=== PATIENT | male | born 1950 | race Caucasian/White ===

== ENCOUNTER → 2021-08-07 11:07 | Outpatient (CLI) | payer MEDICARE, SELFPAY ==
--- NOTE | ~2021-08-07 | XR_ITS ---
EXAMINATION: XR shoulder RT min 2V DATE: 08/07/2021 11:33 INDICATION: Right shoulder pain. TECHNIQUE: 4 views of right shoulder were obtained. COMPARISON: None. FINDINGS: Bone alignment is normal. No fracture. There is mild osteoarthritis of glenohumeral joint a nd acromioclavicular joint characterized by marginal osteophytes. IMPRESSION: 1. Mild polyarticular osteoarthritis. Reviewed, dictated and finalized at location A.
== END ==
PROVIDERS: PCP Family Medicine; Visit Provider Family Medicine
DX: M19.011 Primary osteoarthritis, right shoulder (principal)
CPT/HCPCS: 73030

== ENCOUNTER → 2021-12-03 12:19 | Outpatient (CLI) | payer MEDICARE, SELFPAY ==
--- NOTE | ~2021-12-03 | US_ITS ---
EXAMINATION: US soft tissue head and neck DATE: 12/03/2021 12:38 INDICATION: Right face mass near the right mandible angle. TECHNIQUE: Multiple grayscale and Doppler ultrasound images of the right face were obtained. COMPARISON: None FINDINGS: In the right neck, there is a 2.8 x 1.5 x 1.3 cm hypoechoic mass within a major salivary gl and that is labeled as the right submandibular gland. IMPRESSION: 1. 2.8 cm mass within a major salivary gland in the right neck labeled as the right submandibular gla nd. The differential diagnosis includes benign mixed tumor, Warthin tumor, primary carcinoma, and nod al metastatic disease. Ultrasound-guided fine-needle aspiration is recommended. Reviewed, dictated and finalized at location A. IMPRESSION: 1. 2.8 cm mass within a major salivary gland in the right neck labeled as the r ight submandibular gland. The differential diagnosis includes benign mixed tumo r, Warthin tumor, primary carcinoma, and diana metastatic disease. Ultrasound-g uided fine-needle aspiration is recommended.
== END ==
PROVIDERS: PCP Family Medicine; Visit Provider Family Medicine
DX: R22.1 Localized swelling, mass and lump, neck (principal)
CPT/HCPCS: 76536

== ENCOUNTER 2021-12-07 11:07 | Outpatient (CLI) | payer MEDICARE, SELFPAY ==
--- NOTE | ~2021-12-07 | US_ITS ---
EXAMINATION: US FNA w image guidance DATE: 12/07/2021 13:14 INDICATION: Right parotid mass. TECHNIQUE: The procedure and its benefits and risks were discussed with the patient. Risks specifically discusse d included bleeding. The patient verbalized understanding of the risks and agreed to proceed. The rig ht face and neck was prepped and draped in the usual sterile manner. 1% lidocaine was used for local anesthesia. 5 passes were made with a 25G needle into the lesion under ultrasound guidance. There were no immediate complications. FINDINGS: Grayscale ultrasound images demonstrate needles advanced into a 2.6 x 1.3 cm hypoechoic mass in super ficial right parotid gland for biopsy. IMPRESSION: 1. Ultrasound-guided fine needle aspiration of a right parotid mass. Reviewed, dictated and finalized at location A.
== END 2021-12-07 11:08 | disposition home or self-care (01) ==
LOC: ANHIMG 11:10
PROVIDERS: PCP Family Medicine; Visit Provider Family Medicine
DX: R22.1 Localized swelling, mass and lump, neck (principal)
CPT/HCPCS: 10005; 88173; 88305

== ENCOUNTER 2023-05-09 10:01 | Outpatient (CLI) | payer MEDICARE, SELFPAY ==
--- NOTE | ~2023-05-09 | XR_ITS ---
XR chest 2V DATE: 05/09/2023 10:15 INDICATION: Granuloma present on chest x-ray decades ago TECHNIQUE: PA and lateral views COMPARISON: None FINDINGS: Lingular calcified pulmonary granuloma. No pulmonary infiltrate or consolidation, pleural effusion or pulmonary vascular congestion or pneumo thorax. No hilar or mediastinal enlargement. Normal heart size. Minimal thoracic levoscoliosis. 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
== END 2023-05-09 10:02 | disposition home or self-care (01) ==
LOC: CHSIMG 10:03
PROVIDERS: PCP Family Medicine; Visit Provider Family Medicine
DX: Z77.090 Contact with and (suspected) exposure to asbestos (principal); R91.8 Other nonspecific abnormal finding of lung field
CPT/HCPCS: 71046

== ENCOUNTER 2023-07-29 10:24 | Outpatient (CLI) | payer MEDICARE, SELFPAY ==
--- NOTE | ~2023-07-29 | XR_ITS ---
AP view of the pelvis and AP and lateral views of the bilateral hips Clinical history: Pain Findings: No acute fracture or dislocation is seen. Osseous alignment is anatomic. There is mild dege nerative change of the left hip joint. Minimal right hip degenerative change present. Soft tissues ar e unremarkable. Impression: Mild left hip joint degenerative change, and minimal right hip degenerative change. Reviewed, dictated and finalized at location M. Impression: Mild left hip joint degenerative change, and minimal right hip degenerative oziel nge.
--- NOTE | ~2023-07-29 | XR_ITS ---
EXAMINATION: XR lumbar spine min 4V DATE: 07/29/2023 10:51 INDICATION: Chronic low back pain. Bilateral hip pain. TECHNIQUE: 5 views of lumbar spine were obtained. COMPARISON: None. FINDINGS: Bone alignment is normal. There is mild chronic height loss of L1 and L3 vertebral bodies. There is mildly decreased disc height at L1-L2, L2-L3, and L4-L5 and severely decreased disc height a t L5-S1. There is multilevel mild to moderate facet joint osteoarthritis. IMPRESSION: 1. Severe lumbar spondylosis. Reviewed, dictated and finalized at location E.
== END 2023-07-29 10:25 | disposition home or self-care (01) ==
LOC: CHSIMG 10:26
PROVIDERS: PCP Family Medicine; Visit Provider Family Medicine
DX: M25.552 Pain in left hip (principal); M25.551 Pain in right hip; M54.50 Low back pain, unspecified; M43.06 Spondylolysis, lumbar region
CPT/HCPCS: 72110; 73521

== ENCOUNTER 2024-06-20 10:19 | Outpatient (CLI) | payer MEDICARE, SELFPAY ==
--- NOTE | 2024-06-20 10:31 | ECG_ITS ---
Test Date: 2024-06-20 10:43:30 Measurements Intervals [place] Rate: 60 P: 66 OK: 250 QRS: -67 QRSD: 113 T: 54 QT: 397 QTc: 399 Interpretive Statements SINUS RHYTHM WITH FIRST DEGREE AV BLOCK INCOMPLETE RIGHT BUNDLE BRANCH BLOCK [90+ ms QRS DURATION, TERMINAL R IN V1/V2, 40+ ms S IN I/aVL/V4/V5/V6] LEFT ANTERIOR FASCICULAR BLOCK [QRS AXIS <= -45, QR IN I, RS IN II] No previous ECG available for comparison Electronically Signed On 06-20-2024 13:15:56 CDT by Tamir Helm M.D.
--- OUTSIDE RECORDS SUMMARY | 2024-06-20 11:52 | XMS_ITS ---
Author Organization 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 Name Role Phone Monsechloeiona Kaylah Primary Care Provider Mery Rojas Unavailable [phone] Allergies Allergen (clinical drug ingredient) Drug/Non Drug Allergy documented on EMR Reaction Allergy Type Onset Date Status UNKNOWN MUSCLE RELAXANT (uncoded) facial swelling Allergy Active Results Component Value Reference Range Notes Spirometry Reviewed date: Interpretation:Abnormal Performing Lab: Notes/Report: Abnormal SpiroPreBronchodilator_FVC 4.17 SpiroPostBronchodilator_FEF25_75 0 SpiroPreBronchodilator_FEF25_75 1.36 SpiroPreBronchodilator_FEV1 2.76 SpiroPrecentPredictionPost_FEF25_75 0 SpiroPrecentPredictionPost_FEV1 0 SpiroPrecentPredictionPost_FEV1_OVER_FVC 0 SpiroPrecentPredictionPost_FVC 0 SpiroPrecentPredictionPre_FEF25_75 42.8 SpiroPrecentPredictionPre_FEV1 71.9 SpiroPrecentPredictionPre_FEV1_OVER_FVC 88.6 SpiroPrecentPredictionPre_FVC 81.4 SpiroPredicted_FEF25_75 3.18 SpiroPreBronchodilator_FEV1_OVER_FVC 66.16 SpiroPreBronchodilator_PEF 7.33 SpiroPostBronchodilator_FVC 0 SpiroPostBronchodilator_FEV1 0 SpiroPostBronchodilator_FEV1_OVER_FVC 0 SpiroPostBronchodilator_PEF 0 SpiroPredicted_FVC 5.12 SpiroPredicted_FEV1 3.84 SpiroPredicted_FEV1_OVER_FVC 74.64 SpiroPredicted_PEF 9.2 REASON FOR VISIT Allergic Rhinitis follow-up - well controlled with SCIT, Asthma follow-up - well controlled with Breo Medications Medication SIG (Take, Route, Frequency, Duration) Notes Start Date End Date Status Breo Ellipta 200 MCG-25 MCG/INH 1 PUFF(S) INHALED ONCE A DAY for 30 days *Please review and pick correct strength-formulati on from Nantero options. If intended option is not shown, discontinue and re-order from Quick Search* Active PROAIR HFA 90 mcg/inh 2 puff(s) inhaled every 6 hours, PRN for 30 day(s) Active Pravastatin Sodium 10 MG TAKE 1 TABLET BY MOUTH AT BEDTIME Oral for 90 Days Active EpiPen 2-Bentley 0.3 MG/0.3ML 0.3 mg intramuscularly once for 1 dose(s) Active Alis Allergy 180 MG 1 tab(s) orally once a day Active PAZEO 0.7% 1 gtt in each affect ed eye once a day for 30 day(s) Active EPIPEN 2-BENTLEY 0.3 mg 0.3 mg intramuscularly once for 1 dose(s) Active Nasacort Allergy 24HR *Please review and pick correct strength-formulati on from Nantero options. If intended option is not shown, discontinue and re-order from Quick Search* Active NASAL WASHES N/A as directed intranasally as needed for 30 Active RHINOCORT AQUA 32 mcg/inh 2 spray(s) intranasally once a day for 30 day(s) Active ALIS 24 HOUR ALLERGY 180 mg 1 tab(s) orally once a day Active SIT (TRADITIONAL) variable per schedule SC per schedule for to be determined Active Social History Tobacco Use: Social History Observation Description Date Details (start date - stop date) Former Smoker NA - NA Smoking Smart Form: Question Answer Notes Are you a: former smoker Tobacco Control (Standard) Question Answer Notes Tobacco use: Former smoker How long has it been since you last smoked? Evaa ter than 10 years Vital Signs Blood pressure systolic 122 mm Hg 04/18/19 25 Blood pressure diastolic 77 mm Hg 025 Oximetry 97 % 04/18/2024 Height 74.50 in 04/18/2024 Weight 249.0 lbs 04/18/2024 BMI 31.54 kg/m2 04/18/2024 Encounters Encounter Location Date Provider Diagnosis [facility] 2022 [facility] [address] [place] [address] 04/18/2024 Mery Collins Allergic rhinitis du e to pollen J30.1 ; Moderate persistent asthma, uncomplicated J45.40 ; Allergic rhinitis due to animal (cat) (dog) hair and dander J30.81 ; Other allergic rhinitis J30.89 ; Snoring R06.83 and Other chronic allergic conjunctivitis H10.45 Assessments Encounter Date Diagnosis (ICD Code) Assessment Notes Treatment Notes Treatment Clinical Notes Section Notes 04/18/2024 Allergic rhinitis due to pollen (ICD-10 - J30.1) Martin clearly suffers from atopic disease based upon history and our skin testing. Accordingly, we have introduced a new, aggressive medication regimen, discussed nasal washes and allergy-specifi c avoidance measures. He is tolerating SCIT without large local or systemic symptoms. He was instructed to carry his EpiPen for 2 hours after leaving the office. 04/18/2024 Moderate persistent asthma, uncomplicated (ICD-10 - J45.40) Most likely allergen induced asthma. ACT 24. Spirometry today showed obstruction but appears consistent with spirometry from 2021. Continue Breo and prn albuterol. He admits to missing several weeks of Breo when asthma is under good control. 04/18/2024 Allergic rhinitis due to animal (cat) (dog) hair and dander (ICD-10 - J30.81) Recommend medications, allergen avoidance measures, and SCIT as above 04/18/2024 Other allergic rhinitis (ICD-10 - J30.89) Recommend medications, allergen avoidance measures, and SCIT as above 04/18/2024 Snoring (ICD-10 - R06.83) Martin has a history of snoring at night which increases when nose is congested. He has seen much improvement while treating atopic disease. May consider sleep study if symptoms recur 04/18/2024 Other chronic allergic conjunctivitis (ICD-10 - H10.45) I strongly encouraged allergy avoidance measures, medications including intraocular antihistamine/m ast cell stabilizer, PRN and continue SCIT as an adjunctive measure. 04/18/2024 Other Plan Of Treatment Medication Medication Name Sig Start Date Stop Date Notes Breo Ellipta 200 MCG-25 MCG/INH 1 PUFF(S) INHALED ONCE A DAY for 30 days *Please review and pick correct strength-formulation from Nantero options. If intended option is not shown, discontinue and re-order from Quick Search* PROAIR HFA 90 mcg/inh 2 puff(s) inhaled every 6 hours, PRN for 30 day(s) PAZEO 0.7% 1 gtt in each affect ed eye once a day for 30 day(s) EPIPEN 2-BENTLEY 0.3 mg 0.3 mg intramuscular ly once for 1 dose(s) NASAL WASHES N/A as directed intranas ally as needed for 30 RHINOCORT AQUA 32 mcg/inh 2 spray(s) intranasally once a day for 30 day(s) ALIS 24 HOUR ALLERGY 180 mg 1 tab(s) orally once a day Treatment Notes Assessment Notes Allergic rhinitis due to pollen Martin clearly suffers from atopic disease based upon history and our skin testing. Accordingly, we have introduced a new, aggressive medication regimen, discussed nasal washes and allergy-specific avoidance measures. He is tolerating SCIT without large local or systemic symptoms. He was instructed to carry his EpiPen for 2 hours after leaving the office. Moderate persistent asthma, uncomplicate d Most likely allergen induced asthma. ACT 24. Spirometry today showed obstruction but appears consistent with spirometry from 2021. Continue Breo and prn albuterol. He admits to missing several weeks of Breo when asthma is under good control. Allergic rhinitis due to ani mal (cat) (dog) hair and dander Recommend medications, allergen avoidance measures, and SCIT as above Other allergic rhinitis Recommend medications, allergen avoidance measures, and SCIT as above Snoring Martin has a history of snoring at night which increases when nose is congested. He has seen much improvement while treating atopic disease. May consider sleep study if symptoms recur Other chronic allergic conjunctivitis I strongly encouraged allergy avoidance measures, medications including intraocular antihistamine/mast cell stabilizer, PRN and continue SCIT as an adjunctive measure. Next Appt Details Follow Up: 6 Months, Reason: Spirometry/Flow Volume Loop Procedure Notes * Category Sub-Category Detail Notes SCIT Traditional Aeroallergen Schedul e Administration:: Full dosing administered per SOP and AAIC's titration schedule and/or specific instructions as outlined on the patient's shot record; see attached for specifics re: content, concentration, volume and location of injection(s). Progress Notes * Martin CHAPIN ADOB:1950 (74 yo M)Acc No.[id number]:04/18/2024 Progress Notes Patient: Martin AHUMADA Provider: Emily Collins MD :1950 A ge:74 Y S ex:Male Date:04/18/2024 Address:[address] [place] [address], [facility], [id number] Pcp:Kaylah Lou Subjective: * Chief Complaints: * A llergic Rhinitis follow-up - well controlled with SCITAsthma follow-up - well controlled with Breo * HPI: * Introduction: I had the pleasure of seeing Manish Chapin, a 73 year old with allergic rhinoconjunctivitis and asthma p resenting for f/u evaluation of rhinitis and asthma He was last evaluated 10-19-2023. ACT 24 and reports good control with Breo. No night symptoms and good exercise tolerance. Improvement in congestion and rhinorrhea since starting SCIT. He denies any large local or systemic symptoms with immunotherapy. He has continued SCIT past 5 years and reports itchy eyes and congestion if misses doses of immunotherapy. He was diagnosed with asthma by his primary physician about 4 years ago. No interval use of albuterol. Prior to starting SCIT, he was experiencing frequent nasal congestion, sneezing, and itchy watery eyes. No history of recurrent sinusitis. 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 He is a former smoker and quit 17 years ago. No wheezing or decrease in exercise tolerance. Today, he reports no fevers, chills, night sweats or other constitutional symptoms, . * ROS: A LLERGY: Positive p er the HPI and history, otherwise unremarkable.? S PECIAL SENSES: Positve for n one. C ONSTITUTIONAL: Positive for n one. E NT: Positive p er the HPI and history, otherwise unremarkable.? R ESPIRATORY: Positive p er the HPI and history, otherwise unremakable.? O PHTHALMOLOGY: Positive for p er the HPI and history, otherwise unremarkable. E NDOCRINOLOGY: Positive for n one. C ARDIOLOGY: Positive for n one. G ASTROENTEROLOGY: Positive for n one. U ROLOGY: Positive for n one. D ERMATOLOGY: Positive for p er the HPI and history, otherwise unremakable. N EUROLOGY: Positive for n one. H EMATOLOGY/LYMPH: Positive for n one. M USCULOSKELETAL: Positive for n one. P SYCHOLOGY: Positive for n one. A ll other review of systems per the HPI and history, otherwise unremarkable. * Medical History: * Surgical History: r ight knee replacement 11/09/2009 * Hospitalization/Major Diagno stic Procedure: k idney stones 08/10/1999 * Family History: F ather: , Yes. M other: , Yes. S iblings: Yes. C hildren: Yes.? * Social History: M arital Status What is your marital status? m arried A lcohol Screening Do you ever drink alcoholic beverages? Y es Number of drinks per occasion: 1 Frequency? M onthly S moking Have you ever smoked tobacco: f ormer smoker Additional Findings: Tobacco Non-User E x-light cigarette smoker (1-9/day) How old were you when you started smoking? 1 4 How old were you when you quit smoking? 5 0 How many cigarettes a day did you smoke? 2 1 to 30 Are you a : f ormer smoker S moking Smart Form Are you a: f ormer smoker R ecreational drug use Have you ever used recreational drugs? N o D etails on consumption of certain products? Do you regularly consume products with aspartame; Equal or NutraSweet? Y es Do you regularly consume products with artificial coloring??Yes Have you ever noticed worsening of your rash with these food items? N o E xercise What kind(s) of exercise do you perform regularly? w alking,biking,weight training,cardio How often do you perform this exercise? d aily A re any of the following personal care products containing fragrance, dye or preservatives used regularly? Shampoo: Y es Conditioner: N o Soap: Y es Laundry Detergent: Y es Fabric Softener: Y es Deodorant: Y es Perfume, cologne, after shave: Y es Air freshners or other scented products: N o Hair coloring dyes or rinses: N o O ccupation Are you currenly employed? N o Have you had any job with high exposure to fumes, chemicals, dust or other noxious substances? Y es Are you currently a student? N o E nvironmental History Living environment: p rivate home,with relatives Where is the home located? r ural Age of home: 6 5 How long have you lived there? 5 years or more How many people live in the home? 2 H ome description Basement: Y es Any water damage in basement? Y es Smokers in the home? N o Smokers outside the home? N o Air Conditioning? Y es Central Air? Y es Forced air heating? Y es Gas or electric? g as Fireplace? N o Wood burning stove? N o Do you vacuum the home? Y es Air purification systems? N o Pillow and mattress dust-proof encasings? Y es Do you use a humidifier? N o Do you own any pets? Y es What kind(s)? (click all that apply) c ats Where do your pets sleep? o utside Fabric softeners used? Y es Plants in the home? N o Is there carpeting in your bedroom? Y es Age of carpet? 4 Do you have [id number] carpeting? Y es What is the age of your carpeting? 4 What is the age of your mattress (years)? 8 What material(s) are used to manufacture your bedding and pillow? s ynthetic,natural fiber (e.g. cotton) What is the age of your pillow (years)? 5 What material are your bedding items made of? s ynthetic,natural fiber (e.g. cotton) Do you sleep with quilts or blankets or a duvet? Y es What material? s ynthetic,natural fiber (e.g. cotton) How many cats? 1 T obacco Control (Standard) Tobacco use: F ormer smoker How long has it been since you last smoked? G reater than 10 years * Medications: T akingSIT (TRADITIONAL) variable see record per schedule SC per schedule RHINOCORT AQUA 32 mcg/inh spray 2 spray(s) intranasally once a day NASAL WASHES N/A 1 quart of sterilized tap water or distilled water, 1 tsp NaCl, 1 pinch of baking soda as directed intranasally as needed PAZEO 0.7% solution 1 gtt in each affected eye once a day PROAIR HFA 90 mcg/inh aerosol 2 puff(s) inhaled every 6 hours, PRN Alis Allergy 180 MG Tablet 1 tab(s) orally once a day EpiPen 2-Bentley 0.3 MG/0.3ML Solution Auto-injector 0.3 mg intramuscularly once Nasacort Allergy 24HR , Notes to Pharmacist: *Please review and pick correct strength-formulation from Blokifyan options. If intended option is not shown, discontinue and re-order from Quick Search*Breo Ellipta 200 MCG-25 MCG/INH POWDER 1 PUFF(S) INHALED ONCE A DAY , Notes to Pharmacist: *Please review and pick correct strength-formulation from Nantero options. If intended option is not shown, discontinue and re-order from Quick Search*Pravastatin Sodium 10 MG Tablet TAKE 1 TABLET BY MOUTH AT BEDTIME Oral Taking SIT (TRADITIONAL) variable see record per schedule SC per schedule Taking RHINOCORT AQUA 32 mcg/inh spray 2 spray(s) intranasally once a day Taking NASAL WASHES N/A 1 quart of sterilized tap water or distilled water, 1 tsp NaCl, 1 pinch of baking soda as directed intranasally as needed Taking PAZEO 0.7% solution 1 gtt in each affected eye once a day Taking PROAIR HFA 90 mcg/inh aerosol 2 puff(s) inhaled every 6 hours, PRN Taking Alis Allergy 180 MG Tablet 1 tab(s) orally once a day Taking EpiPen 2-Bentley 0.3 MG/0.3ML Solution Auto-injector 0.3 mg intramuscularly once Taking Nasacort Allergy 24HR , Notes to Pharmacist: *Please review and pick correct strength-formulation from Blokifyan options. If intended option is not shown, discontinue and re-order from Quick Search*Taking Breo Ellipta 200 MCG-25 MCG/INH POWDER 1 PUFF(S) INHALED ONCE A DAY , Notes to Pharmacist: *Please review and pick correct strength-formulation from Blokifyan options. If intended option is not shown, discontinue and re-order from Quick Search*Taking Pravastatin Sodium 10 MG Tablet TAKE 1 TABLET BY MOUTH AT BEDTIME Oral DiscontinuedALLEGRA 24 HOUR ALLERGY 180 mg tablet 1 tab(s) orally once a day EPIPEN 2-BENTLEY 0.3 mg kit 0.3 mg intramuscularly once Medication List reviewed and reconciled with the patientDiscontinued ALIS 24 HOUR ALLERGY 180 mg tablet 1 tab(s) orally once a day Discontinued EPIPEN 2-BENTLEY 0.3 mg kit 0.3 mg intramuscularly once Medication List reviewed and reconciled with the patient * Allergies: U NKNOWN MUSCLE RELAXANT: facial swelling - Allergyno[Allergies Verified] Objective: * Vitals: B P:122/77mm Hg, HR:85/min, Pulse Oximetry:97%, ACT:24, Ht: 74.50 in, Wt: 249.0 lbs, BMI:31.54Index. * Examination: G eneral examination: General appearance: p leasant, well-developed, well-nourished. HEENT: c onjunctiva are normal bilaterally, no tenderness to palpation of the sinuses, TMs without evidence of acute infection, turbinates 1+ swollen and pale inferiorly bilaterally, posterior oropharynx is clear without exudates, tonsils are present. Oral cavity: n ormal, no lesions. Neck, thyroid : s upple, non-tender, no anterior cervical lymphadenopathy. Breasts : n ot performed. Heart: R RR, S1-S2, no murmurs, no rubs, no gallops. Lungs: c lear to auscultation and percussion in all lung alvarado, no wheezes or crackles. Neurologic exam: u nremarkable. Skin: n ormal, no rash, dermatographism, urticaria, angioedema. Peripheral pulses: n ormal (2+) bilaterally. Back: n ormal. Extremities: n ormal ROM, no clubbing, no cyanosis, no edema. Genitalia: n ot performed. Assessment: * Assessment: 1. M oderate persistent asthma, uncomplicated - J45.40 (Primary) 2 . A llergic rhinitis due to pollen - J30.1 3 . A llergic rhinitis due to animal (cat) (dog) hair and dander - J30.81 4 . O ther allergic rhinitis - J30.89 5. S noring - R06.83 6 . O ther chronic allergic conjunctivitis - H10.45? Plan: * Treatment: Value Reference Range S piroPreBronchodilator_FVC 4.17 * S piroPreBronchodilator_FEF25_75 1.36 * S piroPreBronchodilator_FEV1 2.76 * S piroPrecentPredictionPre_FEF25_75 42.8 * S piroPrecentPredictionPre_FEV1 71.9 * S piroPrecentPredictionPre_FEV1_OVER_FVC 88.6 * S piroPrecentPredictionPre_FVC 81.4 * S piroPredicted_FEF25_75 3.18 * S piroPreBronchodilator_FEV1_OVER_FVC 66.16 * S piroPreBronchodilator_PEF 7.33 * S piroPredicted_FVC 5.12 * S piroPredicted_FEV1 3.84 * S piroPredicted_FEV1_OVER_FVC 74.64 * S piroPredicted_PEF 9.2 * FEV1 72% and normal FVC. FVL with increase in curvilinearity. Impression: obstruction Notes: Most likely allergen induced asthma. ACT 24. Spirometry today showed obstruction but appearsconsistent with spirometry from 2021. Continue Breo and prn albuterol. He admits to missing severalweeks of Breo when asthma is under good control.??2.?Allergic rhinitis due to pollen? Continue ALIS 24 HOUR ALLERGY tablet, 180 mg, 1 tab(s), orally, once a day, tab(s);?Continue RHINOCORT AQUA spray, 32 mcg/inh, 2 spray(s), intranasally, once a day, 30 day(s);?Continue NASAL WASHES 1 quart of sterilized tap water or distilled water, 1 tsp NaCl, 1 pinch of baking soda, N/A, as directed, intranasally, as needed, 30, QS, Refills PRN;?Continue EPIPEN 2-BENTLEY kit, 0.3 mg, 0.3 mg, intramuscularly, once, 1 dose(s), 1, Refills PRN.?? Notes:Martin clearly suffers from atopic disease based upon history and our skin testing. Accordingly, we have introduced a new, aggressive medication regimen, discussed nasal washes and allergy-specific avoidance measures. He is tolerating SCIT without large local or systemic symptoms. He was instructed to carry his EpiPen for 2 hours after leaving the office. ??3.?Allergic rhinitis due to animal (cat) (dog) hair and dander? Notes:Recommend medications, allergen avoidance measures, and SCIT as above ?? 4.?Other allergic rhinitis? Notes:Recommend medications, allergen avoidance measures, and SCIT as above ?? 5.?Snoring? Notes:Martin has a history of snoring at night which increases when nose is congested. He has seen much improvement while treating atopic disease. May consider sleep study if symptoms recur??6.?Other chronic allergic conjunctivitis ? Continue PAZEO solution, 0.7%, 1 gtt, in each affected eye, once a day, 30 day(s), 1, Refills 0. ? Notes:I strongly encouraged allergy avoidance measures, medications including intraocular antihistamine/mast cell stabilizer, PRN and continue SCIT as an adjunctive measure. ??7.?Others? Continue PROAIR HFA aerosol, 90 mcg/inh, 2 puff(s), inhaled, every 6 hours, PRN, 30 day(s), 1, Refills 1.?? * Procedures: S CIT: Traditional Aeroallergen Schedule A dministration: F ull dosing administered per SOP and AAIC's titration schedule and/or specific instructions as outlined on the patient's shot record; see attached for specifics re: content, concentration, volume and location of injection(s). * Procedure Codes: 9 6160 PT-FOCUSED HLTH RISK [id number] DOC MEDS VERIFIED W/PT OR [id number] RESPIRATORY FLOW VOLUME [id number] DOC MEDS VERIFIED W/PT OR RE * Preventive Medicine: Counseling: D iet a s tolerated. E xercise C ontinue activity as usual. M edication instruction: W atc for side effects of prescribed medications. E ducation: O ur staff spent an additional 30 minutes in direct contact with the patient educating them on their current diagnoses and proper treatment and prevention of symptoms and the proper use of medications. E ducation 2: O ur staff discussed the appropriate allergen avoidance measures and medication utilization including upper airway hygiene with nasal washes given the patient's clinical status and diagnoses. P atient education material sent to portal? Y es C are goal follow up plan BMI management provided Y es Above Normal BMI Follow-up D ietary management education, guidance, and counseling * Follow Up: 6 Months (Reason: Spirometry/Flow Volume Loop) * Billing Information: * Visit Code: 53051 Office Visit, Est Pt., Level 4. Modifiers: 25 * Procedure Codes: 57202 PT-FOCUSED HLTH RISK ASSMT. G8427 DOC MEDS VERIFIED W/PT OR RE. A4617 Mouthpiece. 09052 RESPIRATORY FLOW VOLUME LOOP. G8427 DOC MEDS VERIFIED W/PT OR RE. * ITECTURAL DRAFTER Sign off status: Completed true * Provider: Emily Collins MD Date: 0 04/18/2024 Generated for Jr villegas/Adan/Maeve on: 0 06/20/2024 11:52 AM CDT History and Physical Notes * HPI (History of Present Illness) Category Sub-Category Detail Notes Category Notes *Introduction I had the pleasure of seeing Martin Chapin, a 73 year old with allergic rhinoconjunctivitis and asthma presenting for f/u evaluation of rhinitis and asthma He was last evaluated 10-19-2023. ACT 24 and reports good control with Breo. No night symptoms and good exercise tolerance. Improvement in congestion and rhinorrhea since starting SCIT. He denies any large local or systemic symptoms with immunotherapy. He has continued SCIT past 5 years and reports itchy eyes and congestion if misses doses of immunotherapy. He was diagnosed with asthma by his primary physician about 4 years ago. No interval use of albuterol. Prior to starting SCIT, he was experiencing frequent nasal congestion, sneezing, and itchy watery eyes. No history of recurrent sinusitis. 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 He is a former smoker and quit 17 years ago. No wheezing or decrease in exercise tolerance. Today, he reports no fevers, chills, night sweats or other constitutional symptoms, *Allergic Rhinoconjunctivitis *Asthma *Infections *Atopic dermatitis *Medication allergy *Stinging Insects *Prior Evaluations and Treatments *Food allergy *Eosinophilic GI Examination Category Sub-Category Detail Notes Category Not es General examination HEENT: conjunctiva are normal bilaterally, no tenderness to palpation of the sinuses, TMs without evidence of acute infection, turbinates 1+ swollen and pale inferiorly bilaterally, posterior oropharynx is clear without exudates, tonsils are present Neck, thyroid : supple, non-tender, no anterior cervical lymphadenopathy Heart: RRR, S1-S2, no murmu rs, no rubs, no gallops Lungs: clear to auscultatio n and percussion in all lung alvarado, no wheezes or crackles Abdomen: Extremities: normal ROM, no clubb ing, no cyanosis, no edema General appearance: pleasant, well-devel oped, well-nourished Skin: normal, no rash, yogi matographism, urticaria, angioedema Neurologic exam: unremarkable Oral cavity: normal, no lesions Breasts : not performed Peripheral pulses: normal (2+) bilatera lly Back: normal Genitalia: not performed
--- OUTSIDE RECORDS SUMMARY | 2024-06-20 11:53 | XMS_ITS ---
Author Organization [facility] Address [address] [place] [address] Care Team Providers Care Cryptological Technician Name Role Phone Kaylah Lou Primary Care Provider Mery Rojas Unavailable [phone] REASON FOR VISIT SCIT - Traditional Schedule Allergy immunotherapy Medications Medication SIG (Take, Route, Frequency, Duration) Notes Start Date End Date Status Nasacort Allergy 24HR *Please review and pick correct strength-formulati on from [employer] options. If intended option is not shown, discontinue and re-order from Quick Search* Active Breo Ellipta 200 MCG-25 MCG/INH 1 PUFF(S) INHALED ONCE A DAY for 30 DAYS *Please review and pick correct strength-formulati on from [employer] options. If intended option is not shown, discontinue and re-order from Quick Search* Active Apollo Allergy 180 MG 1 tab(s) orally once a day Active EpiPen 2-Bernardino 0.3 MG/0.3ML 0.3 mg intramuscularly once for 1 dose(s) Active SIT (TRADITIONAL) variable per schedule SC per schedule for to be determined Active PAZEO 0.7% 1 gtt in each affect ed eye once a day for 30 day(s) Active PROAIR HFA 90 mcg/inh 2 puff(s) inhaled every 6 hours, PRN for 30 day(s) Active NASAL WASHES N/A as directed intranasally as needed for 30 Active EPIPEN 2-BERNARDINO 0.3 mg 0.3 mg intramuscularly once for 1 dose(s) Active RHINOCORT AQUA 32 mcg/inh 2 spray(s) intranasally once a day for 30 day(s) Active APOLLO 24 HOUR ALLERGY 180 mg 1 tab(s) orally once a day Active Encounters Encounter Location Date Provider Diagnosis [facility] [address] [address] 03/21/2024 Mery Collins Allergic rhinitis du e to pollen J30.1 ; Allergic rhinitis due to animal (cat) (dog) hair and dander J30.81 ; Other allergic rhinitis J30.89 and Other chronic allergic conjunctivitis H10.45 Assessments Encounter Date Diagnosis (ICD Code) Assessment Notes Treatment Notes Treatment Clinical Notes Section Notes 03/21/2024 Allergic rhinitis due to pollen (ICD-10 - J30.1) 03/21/2024 Allergic rhinitis due to animal (cat) (dog) hair and dander (ICD-10 - J30.81) 03/21/2024 Other allergic rhinitis (ICD-10 - J30.89) 03/21/2024 Other chronic allergic conjunctivitis (ICD-10 - H10.45) Plan Of Treatment Medication Medication Name Sig Start Date Stop Date Notes SIT (TRADITIONAL) variable per schedule SC per schedule for to be determined Next Appt Details Follow Up: 4 Weeks, Reason: Progress Notes * Martin CHAPIN ADOB:1950 (73 yo M)Acc No.[id number]:03/21/2024 SCIT-Aeroallergen Patient: Martin AHUMADA Provider: Emily Collins MD :1950 A ge:73 Y S ex:Male Date:03/21/2024 Address:[address], [place] [facility] Pcp:Kaylah Lou Subjective: * Chief Complaints: * S CIT - Traditional Schedule Allergy immunotherapy * HPI: * Introduction: The patient is here for scheduled immunotherapy. Please see the attached specialty form regarding the specifics of the administration of these vaccines. As per our protocol, the must undergo a screening health questionnaire (medication changes, reaction(s) to last immunotherapy dose(s), current health status, ACT (if appropriate), self-injectable epinephrine on patient(?) and peak flow (if appropriate)). Also, the patient must wait in our office for 30 minutes after receiving the vaccine(s). Furthermore, every patient must have an epinephrine pen (self-injectable) with them at the time of administration--and carry if for the following 1.5 hours after they leave our office. The patient must also have taken their antihistamine the day of the injection, preferably 2 hours prior. The consent form for SCIT (subcutaneous immunotherapy) is on file. * Medical History: * Surgical History: * Hospitalization/Major Diagno stic Procedure: * Medications: T akingALLEGRA 24 HOUR ALLERGY 180 mg tablet 1 tab(s) orally once a day RHINOCORT AQUA 32 mcg/inh spray 2 spray(s) intranasally once a day NASAL WASHES N/A 1 quart of sterilized tap water or distilled water, 1 tsp NaCl, 1 pinch of baking soda as directed intranasally as needed EPIPEN 2-BERNARDINO 0.3 mg kit 0.3 mg intramuscularly once PAZEO 0.7% solution 1 gtt in each affected eye once a day PROAIR HFA 90 mcg/inh aerosol 2 puff(s) inhaled every 6 hours, PRN Apollo Allergy 180 MG Tablet 1 tab(s) orally once a day EpiPen 2-Bernardino 0.3 MG/0.3ML Solution Auto-injector 0.3 mg intramuscularly once Nasacort Allergy 24HR , Notes to Pharmacist: *Please review and pick correct strength-formulation from [employer] options. If intended option is not shown, discontinue and re-order from Quick Search*Breo Ellipta 200 MCG-25 MCG/INH POWDER 1 PUFF(S) INHALED ONCE A DAY , Notes to Pharmacist: *Please review and pick correct strength-formulation from [employer] options. If intended option is not shown, discontinue and re-order from Quick Search*SIT (TRADITIONAL) variable see record per schedule SC per schedule Taking APOLLO 24 HOUR ALLERGY 180 mg tablet 1 tab(s) orally once a day Taking RHINOCORT AQUA 32 mcg/inh spray 2 spray(s) intranasally once a day Taking NASAL WASHES N/A 1 quart of sterilized tap water or distilled water, 1 tsp NaCl, 1 pinch of baking soda as directed intranasally as needed Taking EPIPEN 2- BERNARDINO 0.3 mg kit 0.3 mg intramuscularly once Taking PAZEO 0.7% solution 1 gtt in each affected eye once a day Taking PROAIR HFA 90 mcg/inh aerosol 2 puff(s) inhaled every 6 hours, PRN Taking Apollo Allergy 180 MG Tablet 1 tab(s) orally once a day Taking EpiPen 2-Bernardino 0.3 MG/0.3ML Solution Auto-injector 0.3 mg intramuscularly once Taking Nasacort Allergy 24HR , Notes to Pharmacist: *Please review and pick correct strength-formulation from [employer] options. If intended option is not shown, discontinue and re-order from Quick Search*Taking Breo Ellipta 200 MCG-25 MCG/INH POWDER 1 PUFF(S) INHALED ONCE A DAY , Notes to Pharmacist: *Please review and pick correct strength-formulation from [employer] options. If intended option is not shown, discontinue and re-order from Quick Search*Taking SIT (TRADITIONAL) variable see record per schedule SC per schedule Objective: * Vitals: Assessment: * Assessment: 1. A llergic rhinitis due to pollen - J30.1 (Primary) 2 . A llergic rhinitis due to animal (cat) (dog) hair and dander - J30.81 3 . O ther allergic rhinitis - J30.89 4 . O ther chronic allergic conjunctivitis - H10.45 Plan: * Treatment: * Procedure Codes: 9 5117 IMMUNOTHERAPY INJECTIONS * Follow Up: 4 Weeks * Billing Information: * Visit Code: * Procedure Codes: 00288 IMMUNOTHERAPY INJECTIONS. * SIS ENGINEER Sign off status: Completed true * Provider: Emily Collins MD Date: 05/22/2023 Generated for Jr villegas/Adan/Sagaritting on: 0 06/20/2024 11:52 AM CDT History and Physical Notes * HPI (History of Present Illness) Category Sub-Category Detail Notes Category Not es *Introduction The patient is here for scheduled immunotherapy. Please see the attached specialty form regarding the specifics of the administration of these vaccines. As per our protocol, the must undergo a screening health questionnaire (medication changes, reaction(s) to last immunotherapy dose(s), current health status, ACT (if appropriate), self-injectable epinephrine on patient(?) and peak flow (if appropriate)). Also, the patient must wait in our office for 30 minutes after receiving the vaccine(s). Furthermore, every patient must have an epinephrine pen (self-injectable) with them at the time of administration--and carry if for the following 1.5 hours after they leave our office. The patient must also have taken their antihistamine the day of the injection, preferably 2 hours prior. The consent form for SCIT (subcutaneous immunotherapy) is on file.
--- OUTSIDE RECORDS SUMMARY | 2024-06-20 11:53 | XMS_ITS ---
Author Organization [facility] Address [address] [place] [address] Care Team Providers Care Supervisor Metalizing Name Role Phone Kaylah Lou Primary Care Provider Mery Rojas Unavailable [phone] REASON FOR VISIT SCIT - Traditional Schedule Allergy immunotherapy Medications Medication SIG (Take, Route, Frequency, Duration) Notes Start Date End Date Status SIT (TRADITIONAL) variable per schedule SC per schedule for to be determined Active Encounters Encounter Location Date Provider Diagnosis [facility] [address] [place] [id number] 05/21/2024 Mery Collins Allergic rhinitis du e to pollen J30.1 ; Allergic rhinitis due to animal (cat) (dog) hair and dander J30.81 ; Other allergic rhinitis J30.89 and Other chronic allergic conjunctivitis H10.45 Assessments Encounter Date Diagnosis (ICD Code) Assessment Notes Treatment Notes Treatment Clinical Notes Section Notes 05/21/2024 Allergic rhinitis due to pollen (ICD-10 - J30.1) 05/21/2024 Allergic rhinitis due to animal (cat) (dog) hair and dander (ICD-10 - J30.81) 05/21/2024 Other allergic rhinitis (ICD-10 - J30.89) 05/21/2024 Other chronic allergic conjunctivitis (ICD-10 - H10.45) Plan Of Treatment Medication Medication Name Sig Start Date Stop Date Notes SIT (TRADITIONAL) variable per schedule SC per schedule for to be determined Next Appt Details Follow Up: 4 Weeks, Reason: Progress Notes * Martin CHAPIN ADOB:1950 (74 yo M)Acc No.[id number]:05/21/2024 SCIT-Aeroallergen Patient: Martin AHUMADA Provider: Emily Collins MD :1950 A ge:74 Y S ex:Male Date:05/21/2024 Address:[address] [place] [address], [id number] Pcp:Kaylah Lou Subjective: * Chief Complaints: * [...] * Hospitalization/Major Diagno stic Procedure: * Medications: Objective: * Vitals: Assessment: * Assessment: 1. [...] Information: * Visit Code: * Procedure Codes: 10598 IMMUNOTHERAPY INJECTIONS. * ANICAL DRAFTER Sign off status: Completed true * Provider: Emily Collins MD Date: 0 05/21/2024 Generated for Jr villegas/Adan/eTransmitting on: 0 06/20/2024 11:52 AM CDT History [...]
--- OUTSIDE RECORDS SUMMARY | 2024-06-20 11:53 | XMS_ITS | Clinical Summary ---
Author Organization [facility] Address [address] [place] [address] Care Team Providers Care Juvenile Detention Officer Name Role Phone Jaleel Kerr MD Primary Care Provider [phone] Kalen Vasquez MD Unavailable [phone] Source Comments [facility],non-owned Affiliates and Associated Physician Practices is amultiple site organization consisting of ambulatory clinics and hospital sitesin [place], [place], [place] and [place]. This disclosure is being madepursuant to the Care Everywhere program and may not contain all information available regarding this patient. Last updated 17.[facility] Allergies No known active allergies Medications * Be aware that medications may not be up to date on this document. Alwaysverify current medications with the patient. Medication Sig Dispensed Refills Start Date End Date Status pravastatin (PRAVACHOL) 10 MG tablet Take 10 mg by mouth at bedtime. 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 10/08/2014 Preoperative examination 09/29/2009 Family History Medical History Relation Name Comments Cancer Brother skin cancer Diabetes Brother Cancer Sister breast Diabetes Sister Relation Name Status Comments Brother Sister Social History Tobacco Use Types Packs/Day Years Used Date Smoking Tobacco: Former Cigarettes 2 35 0 04/11/1964 - 04/11/1999 Alcohol Use Standard Drinks/Week Comments No 0 (1 standard drink = 0.6 oz pur e alcohol) Sex and Gender Information Value Date Recorded Sex Assigned at Not on file Gender Identity Not on file Sexual Orientation Not on file Last Filed Vital Signs Vital Sign Reading Time Taken Comments Blood Pressure 144/78 12/16/2016 9:53 AM CDT Pulse 66 12/16/2016 9:53 AM CDT Temperature 36.4 C (97.6 F) 12/16/2016 9:53 AM CDT Respiratory Rate 18 12/16/2016 9:53 AM CDT Oxygen Saturation 96% 10/23/2009 5:36 AM CDT Inhaled Oxygen Concentration - - Weight 118.4 kg (261 lb) 12/16/2016 9:53 AM CDT Height 194 cm (6' 4.38 ) 12/16/2016 9:53 AM CDT Body Mass Index 31.46 12/16/2016 9:53 AM CDT Plan of Treatment Health Maintenance Due Date Last Done Comments COLOGUARD (AGES 45-75) - COL ON CA SCREENING 1950 COLON MONITORING 1950 COLONOSCOPY - COLON CA SCREENING 1950 CT COLONOGRAPHY - COLON CA SCREENING 1950 Colorectal Cancer Screening 1950 FIT - COLON CA SCREENING 1950 FLEX SIG - COLON CA SCREENING 1950 MEDICARE AWV 12 MONTHS 1950 HEPATITIS C SCREENING 03/19/1968 DTAP/TDAP/TD VACCINES (1 - Tdap) 1969 PNEUMOCOCCAL VACCINE 50+ (1 of 1 - PCV) 2000 ZOSTER VACCINE (1 of 2) 2000 AAA SCREENING 2015 COVID-19 VACCINE ( - 2023-2 5 season) 2023 INFLUENZA VACCINE (#1) 2023 DEPRESSION SCREENING 04/11/2024 Respiratory Syncytial Virus (RSV) Vaccine Pt: or over 60 yrs (1 - 1-dose 75+ series) 2025 HEPATITIS B VACCINE Aged Out No longe r eligible based on patient's age to complete this topic HIB VACCINE Aged Out No longer eligi ble based on patient's age to complete this topic HPV VACCINE Aged Out No longer eligi ble based on patient's age to complete this topic MENINGOCOCCAL (Group B) VACC INE SHARED DECISION-MAKING Aged Out No longer eligibl e based on patient's age to complete this topic MENINGOCOCCAL GROUPS A/C/Y/W VACCINE Aged Out No longer eligible b ased on patient's age to complete this topic Advance Directives Documents on File Type Date Recorded Patient Truck Manager Expl anation Adv Directive/Living Will/POA 10/24/2009 2:41 PM * Full Code (Latest Code Status on File) Date Activated Date Inactivated Comments 10/20/2009 11:47 AM 10/24/2009 1:08 AM Care Teams Juvenile Detention Officer Relationship Specialty Start Date End Date Jaleel Kerr MD [address] [place] [id number] PCP - General Family Medicine 09/05/14 [place] [address] [address] Orthopedic Surgery 10/08/14
--- OUTSIDE RECORDS SUMMARY | 2024-06-20 11:53 | XMS_ITS | Patient Health Summary ---
Author Organization [facility] [employer] Address [address] [place] [address] Care Team Providers Care Video Player Mechanic Name Role Phone Jaleel Kerr MD Primary Care Provider [phone] Kalen Vasquez MD Unavailable [phone] Note from [facility],non-owned Affiliates and Associated Physician Practices is amultiple site organization consisting of ambulatory clinics and hospital sitesin [place], [place], [place] and [place]. This disclosure is being madepursuant to the Care Everywhere program and may not contain all information available regarding this patient. Last updated 17.[facility] Allergies No known active allergies Medications * Be aware that medications may not be up to date on this document. Alwaysverify current medications with the patient. * pravastatin (PRAVACHOL) 10 MG tablet Take 10 mg by mouth at bedtime. * zolpidem (AMBIEN) 5 MG tablet(Started 07/19/2014) Take 5 mg by mouth once daily * diclofenac sodium EC (VOLTAREN) 75 MG tablet(Started 09/02/2015) Take 1 Tab by mouth 2 times daily 5 refills left Active Problems Problem Noted Date Diagnosed Date Osteoarthrosis involving lower leg 10/08/2014 Knee joint replacement by other means 10/08/2014 Preoperative examination 09/29/2009 Social History Tobacco Use Types Packs/Day Years [...] Mass Index 31.46 12/16/2016 9:53 AM CDT Procedures * XR KNEE BILAT 3VW(Performed 09/02/2015) Performed for Pain in both knees, unspecified chronicity * XR KNEE BILAT 3VW(Performed 10/08/2014) Performed for Bilateral knee pain * CARDIAC RHYTHM STRIP ORDER(Performed 10/25/2009) * LAB RESULTS ORDER(Performed 10/25/2009) * HGB HCT PANEL(Performed 10/22/2009) Performed for Osteoarth NOS-Unspec * HGB HCT PANEL(Performed 10/21/2009) Performed for Osteoarth NOS-Unspec * CARDIAC EKG ORDER(Performed 10/03/2009) * COMPREHENSIVE METABOLIC PANEL(Performed 09/29/2009) Performed for Preoperative Examination * CBC W AUTO DIFFERENTIAL(Performed 09/29/2009) Performed for Preoperative Examination Results * XR KNEE BILAT 3 VIEWS (09/02/2015 3:46 PM CDT) Only the most recent of2 resultswithin the time period is included. Anatomical Region Laterality Modality Lower Extremity Radiographic Prerna ging Narrative 09/02/2015 4:54 PM CDT Adelaida Diaz, RT(R) 09/02/2015 4:54 PM See progress notes for results Kalen Vasquez MD DIAGNOSTIC IMAGING O RDERABLES * LAB RESULTS ORDER (10/25/2009 9:35 AM CDT) Narrative 10/25/2009 9:35 AM CDT Ordered by an unspecified provider. Transcriptions Document, Scanned - 10/20/2009 12:00 AM CDT Scanned Document LAB - THERAPEUTIC DR VASQUEZ MONITORING ORDERABLES * CARDIAC RHYTHM STRIP ORDER (10/25/2009 9:35 AM CDT) Narrative 10/25/2009 9:35 AM CDT Ordered by an unspecified provider. Transcriptions Document, Scanned - 10/20/2009 12:00 AM CDT Scanned Document CARDIAC SERVICES ORD ERABLES * (ABNORMAL) HGB HCT PANEL (10/22/2009 5:45 AM CDT) Only the most recent of2 resultswithin the time period is included. Hemoglobin 11.0(L) 13.0 - 18.0 gm/dl [facility] Hematocrit 32.5(L) 39.0 - 54.0 % [facility] BLOOD SPECIMEN / Unknown 10/22/2009 5:45 AM CDT 10/22/2009 6:03 AM CDT Kalen Vasquez MD LAB - HEMATOLOGY ORD ERABLES [facility] [address] [place] [address] * CARDIAC EKG ORDER (10/03/2009 1:23 PM CDT) Narrative 10/03/2009 1:23 PM CDT Ordered by an unspecified provider. Transcriptions Document, Scanned - 09/29/2009 12:00 AM CDT Scanned Document CARDIAC SERVICES ORD ERABLES * (ABNORMAL) CBC W AUTO DIFFERENTIAL (09/29/2009 9:05 AM CDT) WBC 5.3 4.5 - 11.0 1000/mm3 [facility] RBC 4.94 4.7 - 6.1 10X6 [facility] Hemoglobin 14.7 13.0 - 18.0 gm/dl [facility] Hematocrit 41.8 39.0 - 54.0 % [facility] MCV 84.6 80.0 - 99.0 fl [facility] MCH 29.8 25.0 - 31.0 pg [facility] MCHC 35.2 32.0 - 36.0 gm/dl [facility] RDW 12.9 11.5 - 14.5 % [facility] Platelet Count 162 130.0 - 400.0 1000/mm3 [facility] Granulocytes % 56.6 40.0 - 70.0 % [facility] Lymphocytes % 24.3 22.0 - 40.0 % [facility] Monocytes % 10.2(H) 2.0 - 10.0 % [facility] Eosinophils % 7.6(H) 0.0 - 6.0 % [facility] Basophils % 1.3 0.0 - 3.0 % [facility] Granulocytes Absolute 2.98 1.8 - 7.7 [facility] Lymphocytes Absolute 1.28 1.0 - 5.4 [facility] Monocytes Absolute 0.54 0.1 - 1.1 [facility] Eosinophils Absolute 0.40 0.0 - 0.7 [facility] Basophils Absolute 0.07 0.0 - 0.2 [facility] Comment Manual Diff Not Indicated [facility] BLOOD SPECIMEN / Unknown 09/29/2009 9:05 AM CDT 09/29/2009 9:23 AM CDT Kalen Vasquez MD LAB - HEMATOLOGY ORD ERABLES Performing Organization Address City/State/[facility] Co de Phone Number [facility] [address] [place] [address] * (ABNORMAL) COMPREHENSIVE METABOLIC PANEL (09/29/2009 9:05 AM CDT) BUN 13 9.0 - 20.0 mg/dl [facility] Sodium 140 137 - 145 mmol/L [facility] Potassium 4.4 3.6 - 5.0 mmol/L [facility] Chloride 102 98.0 - 107.0 mmol/L [facility] Glucose 101 75 - 110 mg/dl [facility] Creatinine 0.9 0.66 - 1.25 mg/dl [facility] AST 35 17.0 - 59.0 U/L [facility] Alkaline Phosphatase 61 38.0 - 126.0 U/L [facility] Calcium 9.1 8.4 - 10.2 mg/dl [facility] Bilirubin Total 0.6 0.2 - 1.3 mg/dl [facility] Albumin 4.1 3.5 - 5.0 gm/dl [facility] Protein Total 7.0 6.3 - 8.2 gm/dl [facility] CO2 32(H) 22.0 - 30.0 mEq/L [facility] ALT 21 21.0 - 72.0 U/L [facility] eGFR by MDRD 86.37 ml/min/1.7 3m2 [facility] BLOOD SPECIMEN / Unknown 09/29/2009 9:05 AM CDT 09/29/2009 9:23 AM CDT Kalen Vasquez MD LAB - CHEMISTRY FARZANA MOE [facility] [address] [place] [address] Care Teams Video Player Mechanic Relationship Specialty Start Date End Date Jaleel Kerr MD [address] [place] [address] PCP - General Family Medicine 09/05/14 [place] [address] [address] [facility] [address] [place] [address] Orthopedic Surgery 10/08/14
--- OUTSIDE RECORDS SUMMARY | 2024-06-20 11:53 | XMS_ITS | Referral Summary ---
Author Organization [facility] Address [address] [place] [address] Care Team Providers Care Subway Train Driver Name Role Phone Kaylah Lou DO Primary Care Provider [phone] Allergies No known active allergies Medications pravastatin (PRAVACHOL) 10 mg tabletIndicatio ns:hyperlipidem ia Take 1 tablet (10 mg total) by mouth nightly at bedtime. 2 Active Belsomra 10 mg tabletIndicatio ns:Insomnia Take 1 tablet (10 mg total) by mouth nightly at bedtime 2 Active fluticasone furoate-vilante roL (BREO ELLIPTA) 100-25 mcg/dose diskus inhalerIndicati ons:Bronchospas m Prevention with COPD Inhale 1 puff nightly Rinse mouth with water after use. Do not swallow. 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 Never 02/18/2022 Q2: How many drinks containi ng alcohol do you have on a typical day when you are drinking? Patient does not drink Q3: How often do you have si x or more drinks on one occasion? Never 02/18/2022 Sex and Gender Information Value Date Recorded Sex Assigned at Not on file Legal Sex Male 12:13 AM LEAD CARE MANAGER Gender Identity Not on file Sexual Orientation Not on file Last Filed Vital Signs Vital Sign Reading Time Taken Comments Blood Pressure 126/72 02/18/2022 12:40 PM LEAD CARE MANAGER Pulse 71 02/18/2022 12:50 PM LEAD CARE MANAGER Temperature 36.4 C (97.5 F) 02/18/2022 12:15 PM LEAD CARE MANAGER Respiratory Rate 15 02/18/2022 12:50 PM LEAD CARE MANAGER Oxygen Saturation 92% 02/18/2022 12:50 PM LEAD CARE MANAGER Inhaled Oxygen Concentration - - Weight 114.8 kg (253 lb) 03/02/2022 3:25 PM LEAD CARE MANAGER Height 190.5 cm (6' 3 ) 02/04/2022 11:10 AM CDT Body Mass Index 31.62 02/04/2022 11:10 AM CDT Plan of Treatment Not on file Insurance [facility]ICARE [facility] Address: [facility] [address] [place] [address] MEDICARE [employer] Care Teams Subway Train Driver Relationship Specialty Start Date End Date Kaylah Lou DO PCP - General Family Medicine 10/16/21
--- OUTSIDE RECORDS SUMMARY | 2024-06-20 11:53 | XMS_ITS | Continuity of Care Document ---
Author Organization [facility] Address [address] [address] [place] [address] Phone Care Team Providers Care Cooker Loader Name Role Phone Erendira Em MD Unavailable Unavailable Allergies, Adverse Reactions, Alerts Substance Reaction Status Criticality No Known Allergies Active No Inform ation Medications Medication Instructions Dosage Effective Dates (start - stop) Status Comments meloxicam 7.5 mg tablet take 1 tablet by oral route once daily - Active tizanidine 2 mg tablet take 1 tablet by oral route every 6 - 8 hours as needed not to exceed 3 doses in 24 hours 2 MG - Active Ozempic 0.25 mg or 0.5 mg (2 mg/3 mL) subcutaneous pen injector inject (0.5MG) by subcutaneous route every week on the same day of each week 0.5 MG - Active Belsomra 10 mg tablet - Active Alis-D 24 Hour 180 mg-240 mg tablet,extended release - Active Breo Ellipta 100 mcg-25 mcg/dose powder for inhalation - Active pravastatin 10 mg tablet - Active Procedures Procedure Date Triamcinolone acet inj NOS OFFICE/OUTPATIENT VISIT EST Triamcinolone acet inj NOS OFFICE/OUTPATIENT VISIT EST RADEX SPI LUMBOSAC 2/3 VIEWS Triamcinolone acet inj NOS OFFICE/OUTPATIENT VISIT EST OFFICE/OUTPATIENT VISIT EST POSTOP FOLLOW-UP VISIT Ropivacaine HCl injection POSTOP FOLLOW-UP VISIT Ropivacaine HCl injection POSTOP FOLLOW-UP VISIT OFFICE/OUTPATIENT VISIT EST Triamcinolone acet inj NOS OFFICE/OUTPATIENT VISIT EST Triamcinolone acet inj NOS Triamcinolone acet inj NOS OFFICE/OUTPATIENT VISIT EST OFFICE/OUTPATIENT VISIT EST Triamcinolone acet inj NOS OFFICE/OUTPATIENT VISIT EST OFFICE/OUTPATIENT VISIT EST MRI Spine w/o Contrast-Lumbar OFFICE/OUTPATIENT VISIT EST RADEX SPI LUMBOSAC 2/3 VIEWS OFFICE/OUTPATIENT VISIT NEW Advance Directives Directive Yes / No Effective Date File Name No Information Encounters Encounter Description Practice Location Reason(s) For Visit Diagnoses Date Provider Providers Copied on Encounter [facility], [address] [address], [place], [address], tel:[phone] [facility] Spinal stenosis, lumbar region without neurogenic claudication 5 Manav Krishna. [address], [place], [place], [id number]. tel:[phone] OFFICE/OUTPA TIENT VISIT EST [facility], [address] [address], [place], [address], [place] tel:[phone] [facility] Low back pain, unspecifiedSp inal stenosis, lumbosacral regionSpondyl osis without myelopathy or radiculopathy , lumbar regionSpinal stenosis, lumbar region without neurogenic claudication 4 Manav Erendira. [address], [place], [place], [id number]. tel:[phone] Referring Provider: Yoan Adame, [address] [place], [address]. tel:[phone] OFFICE/OUTPA TIENT VISIT EST [facility], [address], [place], [address], [place] tel:[phone] [facility] Low back pain, unspecifiedSp ondylosis without myelopathy or radiculopathy , lumbar regionSpinal stenosis, lumbosacral regionDDD (degenerative disc disease), lumbosacral Aug-3 0-202 4 [facility] Erendira. [address], [place], [place], [address]. tel:[phone] Referring Provider: Kaylah Adame, [address], [place], [address]. tel:[phone] OFFICE/OUTPA TIENT VISIT EST [facility], [address] [facility] [address], [place], [address], [place] tel:[phone] [facility] DDD (degenerative disc disease), lumbosacralSp inal stenosis, lumbosacral regionLow back pain, unspecifiedSp ondylosis without myelopathy or radiculopathy , lumbar region August- 4 [facility] Erendira. [address], [place], [place], [id number]. tel:[phone] Referring Provider: Kaylah Adame, [address], [place], [address]. tel:[phone] OFFICE/OUTPA TIENT VISIT EST [facility], [address] [facility] [address], [place], [address], [place] tel:[phone] [facility] Vertebrogenic low back painSpondylos is without myelopathy or radiculopathy , lumbar region Apr- 2- 4 [facility]. [address] [facility] [address], [place], [address], [place]. tel:[phone] Referring Provider: Kaylah Adame, [place], [address]. tel:[phone] [facility], [address], [place], [address], [place] tel:[phone] [facility] [place] Spondylosis without myelopathy or radiculopathy , lumbar region Jun-0 6- 4 Heck Andrew. [address], [place], [address], [place]. tel:[phone] Referring Provider: Kaylah Adame, [address] [place] [address] [place], [address]. tel:[phone] [facility], [address], [place], [address], [place] tel:[phone] [facility] Spondylosis without myelopathy or radiculopathy , lumbar region 0 4 Heck Andrew. [address], [place], [address], [place]. tel:[phone] [facility], [address], [place], [address], [place] tel:[phone] [facility] Spondylosis without myelopathy or radiculopathy , lumbar region 4 Heck Andrew. [address], [place], [address], [place]. tel:[phone] Referring Provider: Kaylah Adame, [address] [place] [address] [place], [address]. tel:[phone] [facility], [address], [place], [address], [place] tel:[phone] [facility] Spondylosis without myelopathy or radiculopathy , lumbar region 4 Heck Andrew. [address], [place], [address], [place]. tel:[phone] [facility], [address], [place], [address], [place] tel:[phone] [facility] Spondylosis without myelopathy or radiculopathy , lumbar region 4 Heck Andrew. [address], [place], [address], [place]. tel:[phone] Referring Provider: Kaylah Adame, [address] [place] [address] [place], [address]. tel:[phone] [facility], [address] [address], [place], [address], [place] tel:[phone] [facility] Body mass index [BMI] 29.0-29.9, adult 4 Zippay Erendira. [address], [place], [place], [address]. tel:[phone] [facility], [address] [facility] [address], [place], [address], [place] tel:[phone] [facility] Spinal stenosis, lumbar region without neurogenic claudicationS mónica stenosis, lumbosacral regionLow back pain, unspecified 4 Zippay Erendira. [address], [place], [place], [address]. tel:[phone] OFFICE/OUTPA TIENT VISIT EST [facility], [address] [facility] [address], [place], [address], [place] tel:[phone] [facility] Body mass index [BMI] 29.0-29.9, adultSpondylo sis without myelopathy or radiculopathy , lumbar regionSpinal stenosis, lumbar region without neurogenic claudication Mar-0 3 Heck Andrew. [address] [facility] [address], [place], [address], [place]. tel:[phone] Referring Provider: Kaylah Adame, [address] [place] [address] [place], [address]. tel:[phone] OFFICE/OUTPA TIENT VISIT EST [facility], [address] [facility] [address], [place], [address], [place] tel:[phone] [facility] Low back pain, unspecifiedSp ondylosis without myelopathy or radiculopathy , lumbar regionSpinal stenosis, lumbosacral region 3 Zippay Erendira. [address] [facility] [address], [place], [place], [address]. tel:[phone] Referring Provider: Kaylah Adame, [facility] , [place], [address]. tel:[phone] [facility], [address], [place], [address], [place] tel:[phone] [facility] Spinal stenosis, lumbosacral regionSpondyl osis without myelopathy or radiculopathy , lumbar regionOther spondylosis with radiculopathy , lumbar regionLow back pain, unspecified 3 Zippay Erendira. [address], [place], [place], [address]. tel:[phone] Referring Provider: Kaylah Adame, [address] [place] [address] , [place], [address]. tel:[phone] OFFICE/OUTPA TIENT VISIT EST [facility], [address] [facility] [address] [facility] [address], [place], [address], [place] tel:[phone] [facility] Spondylosis without myelopathy or radiculopathy , lumbar regionOther spondylosis with radiculopathy , lumbar regionDDD (degenerative disc disease), lumbosacralSp inal stenosis, lumbosacral regionLow back pain, unspecifiedPr imary osteoarthriti s of left hip 3 Zippay Erendira. [address], [place], [place], [address]. tel:[phone] Referring Provider: Kaylah Adame, [facility] [place], [address]. tel:[phone] OFFICE/OUTPA TIENT VISIT EST [facility], [address] [facility] [address], [place], [address], [place] tel:[phone] [facility] Low back pain, unspecifiedSp inal stenosis, lumbosacral regionDDD (degenerative disc disease), lumbosacralOt her spondylosis with radiculopathy , lumbar regionSpondyl osis without myelopathy or radiculopathy , lumbar regionBody mass index [BMI] 29.0-29.9, adult Apr- 2-202 3 Zippay Erendira. [address] [facility] [address], [place], [place], [id number]. tel:[phone] Referring Provider: Kaylah Adame, [address], [place], [address]. tel:[phone] [facility], [address] [facility] [address], [place], [address], [place] tel:[phone] [facility] Low back pain, unspecified Apr-0 5- 3 Zippay Erendira. [address] [facility] [address], [place], [place], [address]. tel:[phone] OFFICE/OUTPA TIENT VISIT EST [facility], [address] [facility] [address], [place], [address], [place] tel:[phone] [facility] Body mass index [BMI] 29.0-29.9, adultLow back pain, unspecifiedDD D (degenerative disc disease), lumbosacralSp inal stenosis, lumbosacral regionPrimary osteoarthriti s of left hip Mar-0 6-202 2 Zippay Erendira. [address] [facility] [address], [place], [place], [address]. tel:[phone] Referring Provider: Kaylah Adame, [place], [address]. tel:[phone] OFFICE/OUTPA TIENT VISIT EST [facility], [address] [facility] [address], [place], [address], [place] tel:[phone] [facility] Low back pain, unspecifiedOt her spondylosis with radiculopathy , lumbar regionPrimary osteoarthriti s of left hip Mar-0 2-202 2 Norma Sanjeev. [address] [facility] [address], [place], [place], [address], [place]. tel:[phone] Referring Provider: Kaylah Adame, [place], [address]. tel:[phone] [facility], [address], [place], [address], tel:[phone] [facility] Low back pain, unspecified 2 No Information Referring Provider: Sanjeevkiko Green, [address], [place], [address]. tel:[phone] OFFICE/OUTPA TIENT VISIT EST [facility], [address], [place], [address], tel:[phone] [facility] Low back pain, unspecifiedSp ondylosis without myelopathy or radiculopathy , lumbar region 2 Norma Yosim. [address], [place], [place], [address], [place]. tel:[phone] Referring Provider: Kaylah Adame, [place], [address]. tel:[phone] OFFICE/OUTPA TIENT VISIT NEW [facility], [address], [place], [address], tel:[phone] [facility] Low back pain, unspecifiedSp ondylosis without myelopathy or radiculopathy , lumbar regionBody mass index [BMI] 29.0-29.9, adult Sep-0 2 Norma Smithm. [address], [place], [place], [address], [place]. tel:[phone] Referring Provider: Kaylah Adame, [place], [address]. tel:[phone] Family History Family Member Type Diagnosis Age At Onset No Information Payers Payer name Insurance type Covered green party ID Luceroa saran(s) [facility] Medicare Advantage PPO [id number] Social History Type Description Quantity Date Captured Comments Alcohol Use Details Unknown Caffeine Use Details Unknown Tobacco Use Status No Information Smoking Status No Information Sex Male Chief Complaint And Reason For Visit No Information Reason For Referral Reason For Referral No Information Plan Of Treatment Date Type Action Status Referral Ordered: DESTROY LUMB/SAC FACET JNT Bilateral spine, lumbar Appointment date/timeframe: 06/15/2023 ordered Referral Ordered: INJ PARAVERT F JNT L/S 1 LEV Bilateral spine, lumbar ordered Referral Ordered: INJECTION LT hip Appointment date/timeframe: 03/16/2022 ordered Referral Ordered: INJ FORAMEN EPIDURAL L/S spine, lumbar ordered Referral Ordered: MRI Spine w/o Contrast-Lumbar spine, lumbar Appointment date/timeframe: 02/17/2022 ordered Referral Ordered: RADEX SPI LUMBOSAC 2/3 VIEWS spine, lumbar ordered Appointment Martin Chapin Scheduled History Of Present Illness Encounter Date Complaint History Of Prese nt Illness No Information Functional Status Date Functional Assessmen t No Information Instructions Date Instruction Additional Infor mation Apply ice 20 min per hour Relate d to Spondylosis without myelopathy or radiculopathy, lumbar region Rest and Ice. Related to Spina l stenosis, lumbosacral region Discussed treatment options Rela karolina to Spinal stenosis, lumbosacral region Rest and Ice. Related to Spina l stenosis, lumbosacral region Discussed treatment options Rela karolina to Spinal stenosis, lumbosacral region Giving encouragement to exercise Related to Body mass index [BMI] 29.0-29.9, adult Giving encouragement to exercise Related to Body mass index [BMI] 29.0-29.9, adult Rest and Ice. Related to Spina l stenosis, lumbosacral region Discussed treatment options Rela karolina to Spinal stenosis, lumbosacral region Rest and Ice. Related to Spina l stenosis, lumbosacral region Discussed treatment options Rela karolina to Spinal stenosis, lumbosacral region Weight monitoring Related to Bod y mass index [BMI] 29.0-29.9, adult Exercise promotion: stretching R elated to Body mass index [BMI] 29.0-29.9, adult Rest and Ice. Related to Spina l stenosis, lumbosacral region Discussed treatment options Rela karolina to Spinal stenosis, lumbosacral region Giving encouragement to exercise Related to Body mass index [BMI] 29.0-29.9, adult Assessments Type Assessment Date assessment Spinal stenosis, lumbar region w ithout neurogenic claudication Patient Care Teams Name Effective Dates (start - stop) Status Members No Information
--- OUTSIDE RECORDS SUMMARY | 2024-06-20 11:53 | XMS_ITS | Clinical Summary ---
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 Surgical History Surgery Date Site/Laterality Comments KNEE SURGERY 04/11/2009 - 04/10/2010 Medical History Medical History Date Comments HL (hearing loss) COPD (chronic obstructive pulmonary disease) (HC C) Arthritis Allergic rhinitis Family History Medical History Relation Name Comments Diabetes Father Diabetes Mother Heart disease Other 1 Family history of Heart disease; Cancer Other 2 Family history of Cancer, unknown; Hypertension Other 3 Family history of Hypertension; Diabetes Sister Anesthesia problems Neg Hx Relation Name Status Comments Father Mother Other 1 Other 2 Other 3 Sister Social History Tobacco Use Types Packs/Day [...] on file Legal Sex Male 12:13 AM 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 Gender Identity Not on file Sexual Orientation Not on file Obstetrics History Last Filed Vital Signs Vital Sign Reading Time Taken Comments Blood Pressure 126/72 02/18/2022 12:40 PM 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 Pulse 71 02/18/2022 12:50 PM 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 Temperature 36.4 C (97.5 F) 02/18/2022 12:15 PM 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 Respiratory Rate 15 02/18/2022 12:50 PM 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 Oxygen Saturation 92% 02/18/2022 12:50 PM 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 Inhaled Oxygen Concentration - - Weight 114.8 kg (253 lb) 03/02/2022 3:25 PM 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 Height 190.5 cm (6' 3 ) 02/04/2022 11:10 AM CDT Body Mass Index 31.62 02/04/2022 11:10 AM CDT Plan of Treatment Health Maintenance Due Date Last Done Comments Colon Cancer Screening-Colonoscopy 1950 Depression Screening 1950 Hepatitis C Screening 1950 DTaP/Tdap/Td Vaccine (1 - Tdap) 1961 Hepatitis B Screening 1968 Pneumococcal vaccine 65+ (1 of 1 - PCV) 2000 Zoster Vaccine (1 of 2) 2000 Abdominal Aortic Aneurysm (A AA) Screen 2015 Well Visit 65+ 2015 Fall Risk Assessment 02/18/2023 02/18/2022 Covid-19 Vaccine (3 - 2023-2 5 season) 2023 11/20/2021, 12/08/2020 Influenza Vaccine (#1) 2023 , 02/09/2018, 12/21/2016, Additional history exists Insurance [employer] Member Subscriber Plan / Payer (Ef fective 2021-Present) Name:Martin Chapin Relation to Subscriber:Self Name:Martin Chapin Payer ID:[id number] (NAIC) Type:[facility] MEDIC[facility] Address: [place] [id number] [employer] [place] [id number] [employer] Care Teams Food Equipment Service Technician Relationship Specialty Start Date End Date Kaylah Lou DO PCP - General Family Medicine 10/16/21
--- OUTSIDE RECORDS SUMMARY | 2024-06-20 11:53 | XMS_ITS | Referral Summary ---
Author Organization [facility] Address [address] [place] [address] Care Team Providers Care Legal Assistant Name Role Phone Jaleel Kerr MD Primary Care Provider [phone] Kalen Vasquez MD Unavailable [phone] Source Comments [facility],non-owned Affiliates and Associated Physician Practices is amultiple site organization consisting of ambulatory clinics and hospital sitesin [place], [place], [place] and [place]. This disclosure is being madepursuant to the Care Everywhere program and may not contain all information available regarding this patient. Last updated 17.[facility] Allergies No known active allergies Medications * [...] 12/16/2016 9:53 AM CDT Plan of Treatment Not on file Advance Directives Documents on File Type Date Recorded Patient Finisher Map And Chart Expl anation Adv Directive/Living Will/POA 10/24/2009 2:41 PM * Full Code (Latest Code Status on File) Date Activated Date Inactivated Comments 10/20/2009 11:47 AM 10/24/2009 1:08 AM Care Teams Legal Assistant Relationship Specialty Start Date End Date Jaleel Kerr MD [address] [place] [address] PCP - General Family Medicine 09/05/14 [place] [address] [address] Orthopedic Surgery 10/08/14
== END 2024-06-20 10:20 | disposition home or self-care (01) ==
PROVIDERS: PCP Family Medicine; Visit Provider Nurse Anesthetist, Certified Registered
DX: Z01.818 Encounter for other preprocedural examination (principal); I44.0 Atrioventricular block, first degree; I45.10 Unspecified right bundle-branch block; I44.4 Left anterior fascicular block
CPT/HCPCS: 93005

== ENCOUNTER 2024-12-03 14:27 | Emergency (ER) | payer MEDICARE, SELFPAY ==
--- OUTSIDE RECORDS SUMMARY | 2024-11-27 03:27 | XMS_ITS | Continuity of Care Document ---
Author Organization [facility] Address [address] [address] [place] [address] Phone Care Team Providers Care Call Out Operator Name Role Phone Erendira Em MD Unavailable Unavailable Allergies, Adverse Reactions, Alerts Substance Reaction Status Criticality No Known Allergies Active No Inform ation Medications Medication Instructions Dosage Effective Dates (start - stop) Status Comments tizanidine 2 mg tablet take 1 tablet by oral route every 6 - 8 hours as needed not to exceed 3 doses in 24 hours 2 MG - Active meloxicam 7.5 mg tablet take 1 tablet by oral route once daily - Active Ozempic 0.25 mg or 0.5 mg (2 mg/3 mL) subcutaneous pen injector inject (0.5MG) by subcutaneous route every week on the same day of each week 0.5 MG - Active pravastatin 10 mg tablet - Active Breo Ellipta 100 mcg-25 mcg/dose powder for inhalation - Active Alis-D 24 Hour 180 mg-240 mg tablet,extended release - Active Belsomra 10 mg tablet - Active Procedures Procedure [...] Copied on Encounter [facility] Sebastian melendez [facility], [place], [address], tel:[phone] [facility] Spinal stenosis, lumbar region without neurogenic claudicationS pondylosis without myelopathy or radiculopathy , lumbar regionSpinal stenosis, lumbosacral regionLow back pain, unspecified 5 Manav Rosas [address], [place], [place], [address]. tel:[phone] OFFICE/OUTPA TIENT VISIT EST [facility], [place], [address], tel:[phone] [facility] Low back pain, unspecifiedSp inal stenosis, lumbosacral regionSpondyl osis without myelopathy or radiculopathy , lumbar regionSpinal stenosis, lumbar region without neurogenic claudication 5 Zippay Erendira. [address], [place], [place], [address]. tel:[phone] Referring Provider: Yoan Adame, [address] [place], [address]. tel:[phone] OFFICE/OUTPA TIENT VISIT EST [facility], [address] [facility], [place], [address], [place] tel:[phone] [facility] Spinal stenosis, lumbar region without neurogenic claudicationS pondylosis without myelopathy or radiculopathy , lumbar regionSpinal stenosis, lumbosacral regionLow back pain, unspecified Apr-1 1-202 5 Zippay Erendira. [address], [place], [place], [address]. tel:[phone] Referring Provider: Yoan Adame, [address] [place], [address]. tel:[phone] [facility], [address] [address], [place], [address], [place] tel:[phone] [facility] Spinal stenosis, lumbar region without neurogenic claudication Jun-0 4-202 5 Zippay Erendira. [address], [place], [place], [address]. tel:[phone] OFFICE/OUTPA TIENT VISIT EST [facility], [address] [facility], [place], [address], [place] tel:[phone] [facility] Low back pain, unspecifiedSp inal stenosis, lumbosacral regionSpondyl osis without myelopathy or radiculopathy , lumbar regionSpinal stenosis, lumbar region without neurogenic claudication Dec-0 3-202 4 Zippay Erendira. [address], [place], [place], [address]. tel:[phone] Referring Provider: Yoan Adame, [address] [place], [address]. tel:[phone] OFFICE/OUTPA TIENT VISIT EST [facility], [address] [facility] [address], [place], [address], [place] tel:[phone] [facility] Low back pain, unspecifiedSp ondylosis without myelopathy or radiculopathy , lumbar regionSpinal stenosis, lumbosacral regionDDD (degenerative disc disease), lumbosacral Aug-3 4 Manav Erendira. [address], [place], [place], [address]. tel:[phone] Referring Provider: Kaylah Adame, [place], [address]. tel:[phone] OFFICE/OUTPA TIENT VISIT EST [facility], [address] [facility] [address], [place], [address], [place] tel:[phone] [facility] DDD (degenerative disc disease), lumbosacralSp inal stenosis, lumbosacral regionLow back pain, unspecifiedSp ondylosis without myelopathy or radiculopathy , lumbar region 4 [facility] Erendira. [address], [place], [place], [address]. tel:[phone] Referring Provider: Kaylah Adame, [place], [address]. tel:[phone] OFFICE/OUTPA TIENT VISIT EST [facility], [address], [place], [address], [place] tel:[phone] [facility] Vertebrogenic low back painSpondylos is without myelopathy or radiculopathy , lumbar region Jul- 4 Aiden Morales. [address], [place], [address], [place]. tel:[phone] Referring Provider: Kaylah Adame, [place], [address]. tel:[phone] [facility], [address], [place], [address], [place] tel:[phone] [facility] [place] Spondylosis without myelopathy or radiculopathy , lumbar region Mar-0 6-202 4 Heck Andrew. [address], [place], [address], [place]. tel:[phone] Referring Provider: Kaylah Adame, [facility] [place], [address]. tel:[phone] [facility], [address], [place], [address], [place] tel:[phone] [facility] Spondylosis without myelopathy or radiculopathy , lumbar region 4 Heck Andrew. [address], [place], [address], [place]. tel:[phone] [facility], [address], [place], [address], [place] tel:[phone] [facility] Spondylosis without myelopathy or radiculopathy , lumbar region 4 Heck Andrew. [address], [place], [address], [place]. tel:[phone] Referring Provider: Kaylah Adame, [place], [address]. tel:[phone] [facility], [address], [place], [address], [place] tel:[phone] [facility] Spondylosis without myelopathy or radiculopathy , lumbar region 4 Heck Andrew. [address], [place], [address], [place]. tel:[phone] [facility], [address], [place], [address], [place] tel:[phone] [facility] Spondylosis without myelopathy or radiculopathy , lumbar region 4 Heck Andrew. [address], [place], [address], [place]. tel:[phone] Referring Provider: Kaylah Adame, [place], [address]. tel:[phone] [facility], [address] [facility] [address], [place], [address], [place] tel:[phone] [facility] Body mass index [BMI] 29.0-29.9, adult 4 Zippay Erendira. [address], [place], [place], [address]. tel:[phone] [facility], [address] [facility] [address], [place], [address], [place] tel:[phone] [facility] Spinal stenosis, lumbar region without neurogenic claudicationS mónica stenosis, lumbosacral regionLow back pain, unspecified 4 Zippay Erendira. [address], [place], [place], [address]. tel:[phone] OFFICE/OUTPA TIENT VISIT EST [facility], [address] [facility] [address], [place], [address], [place] tel:[phone] [facility] Body mass index [BMI] 29.0-29.9, adultSpondylo sis without myelopathy or radiculopathy , lumbar regionSpinal stenosis, lumbar region without neurogenic claudication Mar-0 3 Heck Andrew. [address], [place], [address], [place]. tel:[phone] Referring Provider: Kaylah Adame, [address] [place] [address] [place], [address]. tel:[phone] OFFICE/OUTPA TIENT VISIT EST [facility], [address] [facility] [address], [place], [address], [place] tel:[phone] [facility] Low back pain, unspecifiedSp ondylosis without myelopathy or radiculopathy , lumbar regionSpinal stenosis, lumbosacral region Jan- 3 Zippay Erendira. [address], [place], [place], [address]. tel:[phone] Referring Provider: Kaylah Adame, [facility] [place], [address]. tel:[phone] [facility], [address] [facility] [address] [facility] [address], [place], [address], [place] tel:[phone] [facility] Spinal stenosis, lumbosacral regionSpondyl osis without myelopathy or radiculopathy , lumbar regionOther spondylosis with radiculopathy , lumbar regionLow back pain, unspecified 3 [facility] Erendira. [address], [place], [place], [address]. tel:[phone] Referring Provider: Kaylah Adame, [facility] [place], [address]. tel:[phone] OFFICE/OUTPA TIENT VISIT EST [facility], [address] [facility] [address], [place], [address], [place] tel:[phone] [facility] Spondylosis without myelopathy or radiculopathy , lumbar regionOther spondylosis with radiculopathy , lumbar regionDDD (degenerative disc disease), lumbosacralSp inal stenosis, lumbosacral regionLow back pain, unspecifiedPr imary osteoarthriti s of left hip 3 [facility] Erendira. [address], [place], [place], [address]. tel:[phone] Referring Provider: Kaylah Adame, [place], [address]. tel:[phone] OFFICE/OUTPA TIENT VISIT EST [facility], [address] [facility] [address], [place], [address], [place] tel:[phone] [facility] Low back pain, unspecifiedSp inal stenosis, lumbosacral regionDDD (degenerative disc disease), lumbosacralOt her spondylosis with radiculopathy , lumbar regionSpondyl osis without myelopathy or radiculopathy , lumbar regionBody mass index [BMI] 29.0-29.9, adult 3 [facility] Erendira. [address], [place], [place], [address]. tel:[phone] Referring Provider: Kaylah Adame, [place], [address]. tel:[phone] [facility], [address] [facility] [address], [place], [address], [place] tel:[phone] [facility] Low back pain, unspecified Apr-0 5- 3 Zippay Erendira. [address], [place], [place], [address]. tel:[phone] OFFICE/OUTPA TIENT VISIT EST [facility], [address] [facility] [address], [place], [address], [place] tel:[phone] [facility] Body mass index [BMI] 29.0-29.9, adultLow back pain, unspecifiedDD D (degenerative disc disease), lumbosacralSp inal stenosis, lumbosacral regionPrimary osteoarthriti s of left hip Mar- 6- 2 [facility] E[facility]ira. [address], [place], [place], [address]. tel:[phone] Referring Provider: Kaylah Adame, [place], [address]. tel:[phone] OFFICE/OUTPA TIENT VISIT EST [facility], [address] [facility] [address], [place], [address], [place] tel:[phone] [facility] Low back pain, unspecifiedOt her spondylosis with radiculopathy , lumbar regionPrimary osteoarthriti s of left hip Mar- 2- 2 Norma Sanjeev. [address], [place], [place], [address], [place]. tel:[phone] Referring Provider: Kaylah Adame, [place], [address]. tel:[phone] [facility], [address], [place], [address], [place] tel:[phone] [facility] Low back pain, unspecified Nov0 2 No Information Referring Provider: Sanjeev Green, [address], [place], [address]. tel:[phone] OFFICE/OUTPA TIENT VISIT EST [facility], [address] [facility] [address], [place], [address], [place] tel:[phone] [facility] Low back pain, unspecifiedSp ondylosis without myelopathy or radiculopathy , lumbar region 0 2 Norma Pace. [address], [place], [place], [address], [place]. tel:[phone] Referring Provider: Kaylah Adame, [place], [address]. tel:[phone] OFFICE/OUTPA TIENT VISIT NEW [facility], [address], [place], [address], [place] tel:[phone] [facility] Low back pain, unspecifiedSp ondylosis without myelopathy or radiculopathy , lumbar regionBody mass index [BMI] 29.0-29.9, adult Sep-0 2 Norma Pace. [address], [place], [place], [address], [place]. tel:[phone] Referring Provider: Kaylah Adame, [place], [address]. tel:[phone] Family History Family Member Type Diagnosis Age At Onset No Information Payers Payer name Insurance type Covered constitution party ID Luceroa saran(s) [facility] Medicare Advantage PPO OT [id number] Social History Type Description Quantity Date Captured [...] Spinal stenosis, lumbar region without neurogenic claudication Discussed treatment options Rela karolina to Spinal stenosis, lumbar region without neurogenic claudication Rest and Ice. Related to Spina l stenosis, lumbar region without neurogenic claudication Apply ice 20 min per hour Relate d to Spondylosis without myelopathy or radiculopathy, lumbar region Rest and Ice. Related to Spina l stenosis, lumbosacral region Discussed treatment options Rela karolina to Spinal stenosis, lumbosacral region Discussed treatment options Rela karolina to Spinal stenosis, lumbosacral region Rest and Ice. Related to Spina l stenosis, lumbosacral region Giving encouragement to exercise Related to Body mass index [BMI] 29.0-29.9, adult Giving encouragement to exercise Related to Body mass index [BMI] 29.0-29.9, adult Discussed treatment options Rela karolina to Spinal stenosis, lumbosacral region Rest and Ice. Related to Spina l stenosis, lumbosacral region Discussed treatment options Rela karolina to Spinal stenosis, lumbosacral region Rest and Ice. Related to Spina l stenosis, lumbosacral region Weight monitoring Related to Bod y mass index [BMI] 29.0-29.9, adult Discussed treatment options Rela karolina to Spinal stenosis, lumbosacral region Rest and Ice. Related to Spina l stenosis, lumbosacral region Exercise promotion: stretching R elated to Body [...]
--- OUTSIDE RECORDS SUMMARY | 2024-12-03 05:30 | XMS_ITS ---
Author Organization [facility]ly [facility], [facility] [employer] [place] ([address]) Address [address] [place] [address] Care Team Providers Care Finish Machine Tender Name Role Phone Kaylah Lou Primary Care Provider Mery Rojas Unavailable [phone] REASON FOR VISIT SCIT - Traditional Schedule Allergy immunotherapy Medications Medication SIG (Take, Route, Frequency, Duration) Notes Start Date End Date Status Nasacort Allergy 24HR *Please review and pick correct strength-formulati on from [employer] options. If intended option is not shown, discontinue and re-order from Quick Search* Active EpiPen 2-Bentley 0.3 MG/0.3ML 0.3 mg intramuscularly once; Duration: 1 dose(s) Active Breo Ellipta 200 MCG-25 MCG/INH 1 PUFF(S) INHALED ONCE A DAY; Duration: 30 days *Please review and pick correct strength-formulati on from [employer] options. If intended option is not shown, discontinue and re-order from Quick Search* Active Pravastatin Sodium 10 MG TAKE 1 TABLET BY MOUTH AT BEDTIME Oral; Duration: 90 Days Active SIT (TRADITIONAL) variable per schedule SC per schedule; Duration: to be determined Active PAZEO 0.7% 1 gtt in each affect ed eye once a day; Duration: 30 day(s) Active EPIPEN 2-BENTLEY 0.3 mg 0.3 mg intramuscularly once; Duration: 1 dose(s) Active Alis Allergy 180 MG 1 tab(s) orally once a day Active PROAIR HFA 90 mcg/inh 2 puff(s) inhaled every 6 hours, PRN; Duration: 30 day(s) Active NASAL WASHES N/A as directed intranasally as needed; Duration: 30 Active RHINOCORT AQUA 32 mcg/inh 2 spray(s) intranasally once a day; Duration: 30 day(s) Active ALIS 24 HOUR ALLERGY 180 mg 1 tab(s) orally once a day Active Social History Sex Assigned At : Social History Observation Description Sex Assigned At Male Encounters Encounter Location Date Provider Diagnosis [facility] [address] [address] 12/03/2024 Mery Collins Allergic rhinitis du e to pollen J30.1 ; Allergic rhinitis due to animal (cat) (dog) hair and dander J30.81 ; Other allergic rhinitis J30.89 and Other chronic allergic conjunctivitis H10.45 Assessments Encounter Date Diagnosis (ICD Code) Assessment Notes Treatment Notes Treatment Clinical Notes Section Notes 12/03/2024 Allergic rhinitis due to pollen (ICD-10 - J30.1) 12/03/2024 Allergic rhinitis due to animal (cat) (dog) hair and dander (ICD-10 - J30.81) 12/03/2024 Other allergic rhinitis (ICD-10 - J30.89) 12/03/2024 Other chronic allergic conjunctivitis (ICD-10 - H10.45) Plan Of Treatment Medication Medication Name Sig Start Date Stop Date Notes SIT (TRADITIONAL) variable per schedule SC per schedule; Duration: to be determined Next Appt Details Follow Up: 4 Weeks, Reason: Progress Notes * ALLIDeepry ADOB:1950 (74 yo M)Acc No.[id number]:12/03/2024 SCIT-Aeroallergen Patient: Martin AHUMADA Provider: Emily Collins MD :1950 A ge:74 Y S ex:Male Date:12/03/2024 Address:[address], [place] [id number] Pcp:Kaylah Lou Subjective: * Chief Complaints: * [...] soda as directed intranasally as needed EPIPEN 2-BENTLEY 0.3 mg kit 0.3 mg [...] *Please review and pick correct strength-formulation from [employer] options. If intended option is not shown, discontinue and re-order from Quick Search*Pravastatin Sodium 10 MG Tablet TAKE 1 TABLET BY MOUTH AT BEDTIME Oral Breo Ellipta 200 MCG-25 MCG/INH POWDER 1 PUFF(S) INHALED ONCE A DAY , Notes to Pharmacist: *Please review and pick correct strength-formulation from [employer] options. If intended option is not shown, discontinue and re-order from Quick Search*SIT (TRADITIONAL) variable see record per schedule SC per schedule Taking ALIS 24 HOUR ALLERGY 180 mg tablet 1 tab(s) orally once a day Taking RHINOCORT AQUA 32 mcg/inh spray 2 spray(s) intranasally once a day Taking NASAL WASHES N/A 1 quart of sterilized tap water or distilled water, 1 tsp NaCl, 1 pinch of baking soda as directed intranasally as needed Taking EPIPEN 2- BENTLEY 0.3 mg kit 0.3 mg intramuscularly once [...] *Please review and pick correct strength-formulation from [employer] options. If intended option is not shown, discontinue and re-order from Quick Search*Taking Pravastatin Sodium 10 MG Tablet TAKE 1 TABLET BY MOUTH AT BEDTIME Oral Taking Breo Ellipta 200 MCG-25 MCG/INH POWDER 1 PUFF(S) INHALED ONCE A DAY , Notes to Pharmacist: *Please review and pick correct strength-formulation from [employer] options. If intended option is not shown, [...] Information: * Visit Code: * Procedure Codes: 40196 IMMUNOTHERAPY INJECTIONS. * Sign off status: Completed true * Provider: Emily Collins MD Date: 12/03/2024 Generated for Jr villegas/Adan/Maeve on: 12/03/2024 02:31 PM CDT History and Physical Notes * [...]
--- OUTSIDE RECORDS SUMMARY | 2024-12-03 14:31 | XMS_ITS | Clinical Summary ---
Author Organization [facility] [employer] Address [address] [place] [address] Care Team Providers Care Courtesy Booth Cashier Name Role Phone Jaleel Kerr MD Primary Care Provider [phone] Kalen Vasquez MD Unavailable [phone] Source Comments [facility] [employer],non-owned Affiliates and Associated Physician Practices is amultiple site organization consisting of ambulatory clinics and hospital sitesin [place], [place], [place] and [place]. This disclosure is being madepursuant to the Care Everywhere program and may not contain all information available regarding this patient. Last updated 17.[facility] [employer] Allergies No known active allergies Medications * Be aware that medications may not be up to date on this document. Alwaysverify current medications with the patient. 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 Gender Identity Not on file Sexual [...] 9:53 AM CDT Height 194 cm (6' 4.38) 12/16/2016 9:53 AM CDT Body Mass Index [...] FLEX SIG - COLON CA SCREENING 1950 HEPATITIS C SCREENING 03/19/1968 DTAP/TDAP/TD VACCINES (1 - Tdap) 1969 PNEUMOCOCCAL VACCINE 50+ (1 of 1 - PCV) 2000 ZOSTER VACCINE (1 of 2) 2000 AAA SCREENING 2015 COVID-19 VACCINE ( - 2023-2 5 season) 2023 DEPRESSION SCREENING 04/11/2024 INFLUENZA VACCINE (#1) 2024 Respiratory Syncytial Virus (RSV) Vaccine Pt: or [...] on patient's age to complete this topic Insurance MEDICARE [facility] MANAGED MEDICARE ADV Advance Directives Documents on File Type Date Recorded Patient Sueding Machine Tender Expl anation Adv Directive/Living Will/POA 10/24/2009 2:41 PM * Full Code (Latest Code Status on File) Date Activated Date Inactivated Comments 10/20/2009 11:47 AM 10/24/2009 1:08 AM Care Teams Courtesy Booth Cashier Relationship Specialty Start Date End Date Jaleel Kerr MD [address] [place] [id number] PCP - General Family Medicine 09/05/14 [place] [address] [address] [facility] [address] [place] [address] Orthopedic Surgery 10/08/14
--- OUTSIDE RECORDS SUMMARY | 2024-12-03 14:31 | XMS_ITS | Patient Health Record ---
Author Organization [facility] [employer] ([address]) Address [address] [place] [address] Care Team Providers Care Machine Set Up Operator Paper Goods Name Role Phone MonsechloeKaylah monson Primary Care Provider Mery Rojas Unavailable [phone] Allergies Allergen (clinical drug ingredient) Drug/Non Drug [...] 5.12 SpiroPredicted_FEV1 3.84 SpiroPredicted_FEV1_OVER_FVC 74.64 SpiroPredicted_PEF 9.2 Reason For Referral No Information Medications Medication SIG (Take, Route, Frequency, Duration) Notes Start Date End Date Status PAZEO 0.7% 1 gtt in each affect ed eye once a day; Duration: 30 day(s) Active EPIPEN 2-BENTLEY 0.3 mg 0.3 mg intramuscularly once; Duration: 1 dose(s) Active Alis Allergy 180 MG 1 tab(s) orally once a day Active PROAIR HFA 90 mcg/inh 2 puff(s) inhaled every 6 hours, PRN; Duration: 30 day(s) Active Nasacort Allergy 24HR *Please review and pick correct strength-formulati on from [employer] options. If intended option is not shown, discontinue and re-order from Quick Search* Active EpiPen 2-Bentley 0.3 MG/0.3ML 0.3 mg intramuscularly once; Duration: 1 dose(s) Active Breo Ellipta 200 MCG-25 MCG/INH 1 PUFF(S) INHALED ONCE A DAY; Duration: 30 days *Please review and pick correct strength-formulati on from [employer] options. If intended option is not shown, discontinue and re-order from Quick Search* Active Pravastatin Sodium 10 MG TAKE 1 TABLET BY MOUTH AT BEDTIME Oral; Duration: 90 Days Active RHINOCORT AQUA 32 mcg/inh 2 spray(s) intranasally once a day; Duration: 30 day(s) Active ALIS 24 HOUR ALLERGY 180 mg 1 tab(s) orally once a day Active NASAL WASHES N/A as directed intranasally as needed; Duration: 30 Active SIT (TRADITIONAL) variable per schedule SC per schedule; Duration: to be determined Active Immunizations Vaccine Route Administration Date Status Comme nts Allergy Immunotherapy Weekly Unknown 08/29/2015 Administered Portal Informat[employer] on NOC Pneumovax 23 Unknown 05/17/2017 Refused NOC Influenza-Fluzone Unknown 04/17/2019 Administered Fluzone Quadrivalent Unknown 12/21/2016 Administered Influenza Unknown 01/10/2015 Administered Portal Infor mation Influenza Unknown 12/22/2015 Administered Social History Tobacco Use: Social History Observation Description Date Details (start date - stop date) Former Smoker NA - NA Sex Assigned At : Social History Observation Description Sex Assigned At Male Smoking Smart Form: Question Answer Notes Are you a: former smoker Tobacco Control (Standard) Question Answer Notes Tobacco use: Former smoker How long has it been since you last smoked? Evaa ter than 10 years Problems Problem Type SNOMED Code ICD Code Onset Dates Problem Status W/U Status Risk Notes Problem Information temporarily unavailable Other chronic allergic conjunctivitis (H10.45) Active confirmed Problem Information temporarily unavailable Allergic rhinitis due to pollen (J30.1) Active confirmed Problem Information temporarily unavailable Allergic rhinitis due to animal (cat) (dog) hair and dander (J30.81) Active confirmed Problem Information temporarily unavailable Other allergic rhinitis (J30.89) Active confirmed Problem Information temporarily unavailable Moderate persistent asthma, uncomplicated (J45.40) Active confirmed Problem Information temporarily unavailable Cough (R05) Active confirmed Problem Information temporarily unavailable Allergic rhinitis due to pollen (J30.1) Active confirmed Problem Information temporarily unavailable Allergic rhinitis due to animal (cat) (dog) hair and dander (J30.81) Active confirmed Problem Information temporarily unavailable Other allergic rhinitis (J30.89) Active confirmed Problem Information temporarily unavailable Other chronic allergic conjunctivitis (H10.45) Active confirmed Problem Information temporarily unavailable Snoring (R06.83) Active confirmed Vital Signs Oximetry 97 % 04/18/2024 Blood pressure diastolic 77 mm Hg 04/18/2024 Height 74.50 in 04/18/2024 Blood pressure systolic 122 mm Hg 04/18/2024 Weight 249.0 lbs 04/18/2024 BMI 31.54 kg/m2 04/18/2024 Encounters Encounter Location Date Provider Diagnosis [facility] [address] [address] 12/03/2024 Mery Collins Allergic rhinitis du e to pollen J30.1 ; Allergic rhinitis due to animal (cat) (dog) hair and dander J30.81 ; Other allergic rhinitis J30.89 and Other chronic allergic conjunctivitis H10.45 [facility] [address] [address] 11/08/2024 Mery Collins Allergic rhinitis du e to pollen J30.1 ; Allergic rhinitis due to animal (cat) (dog) hair and dander J30.81 ; Other allergic rhinitis J30.89 and Other chronic allergic conjunctivitis H10.45 [facility] [address] [place] [address] [employer] [address] [address] 11/01/2024 Mery Collisn Allergic rhinitis du e to pollen J30.1 ; Allergic rhinitis due to animal (cat) (dog) hair and dander J30.81 ; Other allergic rhinitis J30.89 and Other chronic allergic conjunctivitis H10.45 [facility] [address] [place] [address] [employer] [address] [address] 10/24/2024 Merymadai Collins Allergic rhinitis du e to pollen J30.1 ; Allergic rhinitis due to animal (cat) (dog) hair and dander J30.81 ; Other allergic rhinitis J30.89 and Other chronic allergic conjunctivitis H10.45 [facility] [address] [place] [address] [employer] [address] [place] [phone] 08/30/2024 Merymadai Collins Allergic rhinitis du e to pollen J30.1 ; Allergic rhinitis due to animal (cat) (dog) hair and dander J30.81 ; Other allergic rhinitis J30.89 and Other chronic allergic conjunctivitis H10.45 [facility] [address] [place] [address] [employer] [address] [address] 07/31/2024 Mery Collins Allergic rhinitis du e to pollen J30.1 ; Allergic rhinitis due to animal (cat) (dog) hair and dander J30.81 ; Other allergic rhinitis J30.89 and Other chronic allergic conjunctivitis H10.45 [facility] [address] [place] [address] [employer] [address] [address] 07/25/2024 Mery Collins Allergic rhinitis du e to pollen J30.1 ; Allergic rhinitis due to animal (cat) (dog) hair and dander J30.81 ; Other allergic rhinitis J30.89 and Other chronic allergic conjunctivitis H10.45 [facility] [address] [place], [place] [address] [address] [place] [phone] 07/12/2024 Merymadai Collins Allergic rhinitis du e to pollen J30.1 ; Allergic rhinitis due to animal (cat) (dog) hair and dander J30.81 ; Other allergic rhinitis J30.89 and Other chronic allergic conjunctivitis H10.45 [facility] [address] [place], [place] [address] [address] [place] [phone] 05/21/2024 Merymadai Collins Allergic rhinitis du e to pollen J30.1 ; Allergic rhinitis due to animal (cat) (dog) hair and dander J30.81 ; Other allergic rhinitis J30.89 and Other chronic allergic conjunctivitis H10.45 [facility] [address] [place] [address] [employer] [address] [place] [phone] 03/21/2024 Merymadai Pereiram Allergic rhinitis du e to pollen J30.1 ; Allergic rhinitis due to animal (cat) (dog) hair and dander J30.81 ; Other allergic rhinitis J30.89 and Other chronic allergic conjunctivitis H10.45 [facility] [address] [place], [place] [address] [address] [place] [phone] 02/15/2024 Merymadai Collins Allergic rhinitis du e to pollen J30.1 ; Allergic rhinitis due to animal (cat) (dog) hair and dander J30.81 ; Other allergic rhinitis J30.89 and Other chronic allergic conjunctivitis H10.45 [facility] [address] [place] [address] [employer] [address] [place] [phone] 01/03/2024 Mery Collins Allergic rhinitis du e to pollen J30.1 ; Allergic rhinitis due to animal (cat) (dog) hair and dander J30.81 ; Other allergic rhinitis J30.89 and Other chronic allergic conjunctivitis H10.45 [facility] [address] [place], [place] [address] [address] [place] [phone] 12/27/2023 Mery Karina Allergic rhinitis du e to pollen J30.1 ; Allergic rhinitis due to animal (cat) (dog) hair and dander J30.81 ; Other allergic rhinitis J30.89 and Other chronic allergic conjunctivitis H10.45 [facility] [address] [place], [place] [address] [address] [place] [phone] 12/21/2023 Merymadai Pereiram Allergic rhinitis du e to pollen J30.1 ; Allergic rhinitis due to animal (cat) (dog) hair and dander J30.81 ; Other allergic rhinitis J30.89 and Other chronic allergic conjunctivitis H10.45 [facility] [address] [facility] [address] [place] [address] 04/18/2024 Mery Collins Allergic rhinitis du e to pollen J30.1 ; Moderate persistent asthma, uncomplicated J45.40 ; Allergic rhinitis due to animal (cat) (dog) hair and dander J30.81 ; Other allergic rhinitis J30.89 ; Snoring R06.83 and Other chronic allergic conjunctivitis H10.[address] [address] 11/05/2024 Mery Collins Moderate persistent asthma, uncomplicated J45.40 Assessments Encounter Date Diagnosis (ICD Code) Assessment Notes Treatment Notes Treatment Clinical Notes Section Notes 12/27/2023 Allergic rhinitis due to pollen (ICD-10 - J30.1) 01/03/2024 Allergic rhinitis due to pollen (ICD-10 - J30.1) 02/15/2024 Allergic rhinitis due to pollen (ICD-10 - J30.1) 03/21/2024 Allergic rhinitis due to pollen (ICD-10 - J30.1) 05/21/2024 Allergic rhinitis due to pollen (ICD-10 - J30.1) 07/12/2024 Allergic rhinitis due to pollen (ICD-10 - J30.1) 07/25/2024 Allergic rhinitis due to pollen (ICD-10 - J30.1) 08/30/2024 Allergic rhinitis due to pollen (ICD-10 - J30.1) 10/24/2024 Allergic rhinitis due to pollen (ICD-10 - J30.1) 11/08/2024 Allergic rhinitis due to pollen (ICD-10 - J30.1) 12/03/2024 Allergic rhinitis due to pollen (ICD-10 - J30.1) 11/05/2024 Moderate persistent asthma, uncomplicated (ICD-10 - J45.40) 07/31/2024 Allergic rhinitis due to pollen (ICD-10 - J30.1) 04/18/2024 Allergic rhinitis due to pollen (ICD-10 [...] Breo when asthma is under good control. 12/21/2023 Allergic rhinitis due to pollen (ICD-10 - J30.1) 11/01/2024 Allergic rhinitis due to pollen (ICD-10 - J30.1) 11/01/2024 Allergic rhinitis due to animal (cat) (dog) hair and dander (ICD-10 - J30.81) 12/21/2023 Allergic rhinitis due to animal (cat) (dog) hair and dander (ICD-10 - J30.81) 04/18/2024 Allergic rhinitis due to animal (cat) (dog) hair and dander (ICD-10 - J30.81) Recommend medications, allergen avoidance measures, and SCIT as above 07/31/2024 Allergic rhinitis due to animal (cat) (dog) hair and dander (ICD-10 - J30.81) 12/03/2024 Allergic rhinitis due to animal (cat) (dog) hair and dander (ICD-10 - J30.81) 11/08/2024 Allergic rhinitis due to animal (cat) (dog) hair and dander (ICD-10 - J30.81) 10/24/2024 Allergic rhinitis due to animal (cat) (dog) hair and dander (ICD-10 - J30.81) 08/30/2024 Allergic rhinitis due to animal (cat) (dog) hair and dander (ICD-10 - J30.81) 07/25/2024 Allergic rhinitis due to animal (cat) (dog) hair and dander (ICD-10 - J30.81) 07/12/2024 Allergic rhinitis due to animal (cat) (dog) hair and dander (ICD-10 - J30.81) 05/21/2024 Allergic rhinitis due to animal (cat) (dog) hair and dander (ICD-10 - J30.81) 03/21/2024 Allergic rhinitis due to animal (cat) (dog) hair and dander (ICD-10 - J30.81) 02/15/2024 Allergic rhinitis due to animal (cat) (dog) hair and dander (ICD-10 - J30.81) 01/03/2024 Allergic rhinitis due to animal (cat) (dog) hair and dander (ICD-10 - J30.81) 12/27/2023 Allergic rhinitis due to animal (cat) (dog) hair and dander (ICD-10 - J30.81) 12/27/2023 Other allergic rhinitis (ICD-10 - J30.89) 01/03/2024 Other allergic rhinitis (ICD-10 - J30.89) 02/15/2024 Other allergic rhinitis (ICD-10 - J30.89) 03/21/2024 Other allergic rhinitis (ICD-10 - J30.89) 05/21/2024 Other allergic rhinitis (ICD-10 - J30.89) 07/12/2024 Other allergic rhinitis (ICD-10 - J30.89) 07/25/2024 Other allergic rhinitis (ICD-10 - J30.89) 08/30/2024 Other allergic rhinitis (ICD-10 - J30.89) 10/24/2024 Other allergic rhinitis (ICD-10 - J30.89) 11/08/2024 Other allergic rhinitis (ICD-10 - J30.89) 12/03/2024 Other allergic rhinitis (ICD-10 - J30.89) 07/31/2024 Other allergic rhinitis (ICD-10 - J30.89) 04/18/2024 Other allergic rhinitis (ICD-10 - J30.89) Recommend medications, allergen avoidance measures, and SCIT as above 12/21/2023 Other allergic rhinitis (ICD-10 - J30.89) 11/01/2024 Other allergic rhinitis (ICD-10 - J30.89) 11/01/2024 Other chronic allergic conjunctivitis (ICD-10 - H10.45) 04/18/2024 Snoring (ICD-10 - R06.83) Martin has a history of snoring at night which increases when nose is congested. He has seen much improvement while treating atopic disease. May consider sleep study if symptoms recur 12/21/2023 Other chronic allergic conjunctivitis (ICD-10 - H10.45) 11/08/2024 Other chronic allergic conjunctivitis (ICD-10 - H10.45) 07/31/2024 Other chronic allergic conjunctivitis (ICD-10 - H10.45) 12/03/2024 Other chronic allergic conjunctivitis (ICD-10 - H10.45) 10/24/2024 Other chronic allergic conjunctivitis (ICD-10 - H10.45) 08/30/2024 Other chronic allergic conjunctivitis (ICD-10 - H10.45) 07/25/2024 Other chronic allergic conjunctivitis (ICD-10 - H10.45) 07/12/2024 Other chronic allergic conjunctivitis (ICD-10 - H10.45) 05/21/2024 Other chronic allergic conjunctivitis (ICD-10 - H10.45) 03/21/2024 Other chronic allergic conjunctivitis (ICD-10 - H10.45) 02/15/2024 Other chronic allergic conjunctivitis (ICD-10 - H10.45) 01/03/2024 Other chronic allergic conjunctivitis (ICD-10 - H10.45) 12/27/2023 Other chronic allergic conjunctivitis (ICD-10 - H10.45) 04/18/2024 Other chronic allergic conjunctivitis (ICD-10 - H10.45) I strongly encouraged allergy avoidance measures, medications including intraocular antihistamine/m ast cell stabilizer, PRN and continue SCIT as an adjunctive measure. 04/18/2024 Other Plan Of Treatment No Information Insurance Providers Payer Name Payer Address Payer Phone Subscriber Number Group Number Insured Name Patient Relationship to Insured Coverage Start Date Coverage End Date [facility] Medicare [address] [address] [place] [address] [id number] Martin Chapin Self - patient is the insured Medical (General) History Medical History History ICD Code Allergic rhinitis due to pollen Other allergic rhinitis Allergic rhinitis due to animal (cat) (d og) hair and dander Surgical History Surgery Date(Month/Year) right knee replacement 11/09/2009 Hospitalization History Reason Date(Month/Year) kidney stones 08/10/1999
--- OUTSIDE RECORDS SUMMARY | 2024-12-03 14:32 | XMS_ITS | Clinical Summary ---
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 ANALYST Gender Identity Not on file Sexual Orientation Not on file Obstetrics History Last Filed Vital Signs Vital Sign Reading Time Taken Comments Blood Pressure 126/72 02/18/2022 12:40 PM SCHEDULING ANALYST Pulse 71 02/18/2022 12:50 PM SCHEDULING ANALYST Temperature 36.4 C (97.5 F) 02/18/2022 12:15 PM SCHEDULING ANALYST Respiratory Rate 15 02/18/2022 12:50 PM SCHEDULING ANALYST Oxygen Saturation 92% 02/18/2022 12:50 PM SCHEDULING ANALYST Inhaled Oxygen Concentration - - Weight 114.8 kg (253 lb) 03/02/2022 3:25 PM SCHEDULING ANALYST Height 190.5 cm (6' 3) 02/04/2022 11:10 AM CDT Body Mass Index [...] Assessment 02/18/2023 02/18/2022 Covid-19 Vaccine (3 - 4-2 5 season) 2023 11/20/2021, 12/08/2020 Influenza Vaccine (#1) 2024 , 02/09/2018, 12/21/2016, Additional history exists Insurance [employer] MEDICARE ADVANTAGE [employer] MED[employer]ARE [employer]AGE Care Teams Motorcycle Subassembler Relationship Specialty Start Date End Date Kaylah Lou DO PCP - General Family Medicine 10/16/21
[2024-12-03 14:38] VITALS: BP 120/76; PULSE 78; RESP 16; TEMP 36.4; O2SAT 97
--- NOTE | 2024-12-03 14:39 | ED.EXTPRO ---
HPI - Extremity Problem General Chief complaint: Extremity Problem,Nontraumatic Stated complaint: Left Leg Swelling Time Seen by Provider: 12/03/24 14:39 Source: patient Mode of arrival: ambulatory Limitations: no limitations History of Present Illness HPI Narrative: 74 y/o male presented for c/o left lower leg swelling and calf pain with walking. Onset one week. Symptoms started after travelling to [place] via car. Denies redness, warmth, cp, palpitations, sob, dizziness, n/v/d/f/c. Denies injury or wounds. Related Data Home Medications ?Medication ?Instructions ?Recorded ?Confirmed ?Last Taken ?Type fexofenadine 60 mg tablet (Alis 60 mg PO Q12H 02/08/19 08/02/24 02/12/19 History Allergy) fluticasone furoate 200 See Rx Instructions .Route .COMPLEX 02/07/23 08/02/24 Unknown History mcg-vilanterol 25 mcg/dose inhalation powder (Breo Ellipta) Allergies Allergy/AdvReac Type Severity Reaction Status Date / Time dog dander Allergy Intermediate itchy eyes Verified 08/02/24 10:35 and scratchy throat grass pollen Allergy Intermediate itchy eyes Verified 08/02/24 10:35 and scratchy throat cat dander Allergy itchy eyes Verified 08/02/24 10:35 and scratchy throat pollen extracts Allergy itchy eyes Verified 08/02/24 10:35 and scratchy throat tree and shrub pollen Allergy itchy eyes Verified 08/02/24 10:35 and scratchy throat Review of Systems Review of Systems: CONSTITUTIONAL: Denies body aches, fever, chills EYES: Denies visual changes ENT: Denies rhinorrhea, congestion CARDIOVASCULAR: Denies chest pain, palpitations, or edema. RESPIRATORY: Denies cough or dyspnea. SKIN: Denies rash, itching, or wounds. MUSCULOSKELETAL: reports LLE swelling NEUROLOGIC: Denies headache, numbness, tingling, or weakness. All systems reviewed & are unremarkable except as noted in HPI and below PMFSH Past Medical History Medical History Hepatitis C antibody test negative (02/14/19) History of hearing problem Kidney stone (~1999) Bronchitis Arthritis Hyperlipidemia Surgical History Surgical History History of colonoscopy (~2008) History of knee replacement (~2009) Family History Family History Sibling Diabetes mellitus Family history of pancreatic cancer Family history of malignant neoplasm of breast Mother Hypertension Family history of malignant neoplasm of ovary Father Family history of cardiovascular disease, Onset Age: 56 Acute myocardial infarction, Onset Age: 56 Social History Social History Smoking status: Former smoker Smoking end date: 04/11/99 Alcohol intake: never Substance use: current Substance use type: marijuana Other substance usage details: Gummies thc/cbd to help sleep Lack of Transportation: No Lack of Food: Never True Current Housing: I Have Housing Concerned About Future Housing: No Difficulty Paying Gas/Electric Bills: No Difficulty Paying for Meds: No Currently Unemployed: No Education: Trade/Vocational Certificate Difficulty w/ Childcare or Family Care: No Living arrangements: with family Additional living arrangements comments: Occupation/Education: retired Gender identity (if verbalized by the patient): Male Sexual Orientation (if Verbalized by the Patient): Straight or Heterosexual Agree to blood products: Yes Comments At time of signature, I have reviewed and agree with nursing past medical, surgical, social and family history unless otherwise noted. Please see nursing chart for further information. There is no relevant family history pertinent to the presenting complaint Exam Narrative: GENERAL: Well-appearing, and in no acute distress. CHEST: Speaks in full sentences. No respiratory distress. HEART: Regular rate and rhythm. EXTREMITIES: LLE swelling, nonpitting. Calf tender with palpation just distal to knee. Left calf Measures 17cm vs 15.5 cm right calf. Negative binu's. No erythema, warmth, ecchymosis, No open wounds. pulse palpable 2+ right, 1+left. skin warm, dry, pink. Capillary refill less than 3 seconds. Varicosities noted bilaterally. SKIN: Warm, dry NEURO: Alert and oriented x3. PSYCH: Normal mood and affect Course Course Emergency Course: Patient is aware of diagnosis, understands and agrees to treatment plan. Anticipatory guidance given. Patient agrees to follow-up as directed and is aware of reasons to seek care at the emergency department. Portions of this record may have been created with voice recognition software Level of Care: Express Care Visit Vital Signs Vital signs: Vital Signs Temperature 97.6 F 12/03/24 14:38 Pulse Rate 78 12/03/24 14:38 Respiratory Rate 16 12/03/24 14:38 Blood Pressure 120/76 12/03/24 14:38 Pulse Oximetry 97 12/03/24 14:38 Oxygen Delivery Room Air 12/03/24 14:38 Temperature 97.6 F 12/03/24 14:38 Pulse Rate 78 12/03/24 14:38 Respiratory Rate 16 12/03/24 14:38 Blood Pressure 120/76 12/03/24 14:38 Pulse Oximetry 97 12/03/24 14:38 Oxygen Delivery Room Air 12/03/24 14:38 Reviewed Transfer Transfered to: [facility] Transportation: Other (private vehicle) Transfer rationale: Pt is agreeable to transfer. Requests transfer to [facility] via private vehicle. Risks of transportation reviewed with pt including injury, worsening of condition and . v/u. Report called to hospital, spoke with Gareth [facility]ER[facility]ER-[facility], accepting physician. Pt is in stable condition at time of transfer. Advised to remain NPO and go directly to the hospital. MDM - Extremity (Nontraumatic) MDM Narrative Medical decision making narrative: Discussed physical exam findings, left lower leg swelling, tender with palpation to the calf. Advised ER transfer for further evaluation and rule out DVT. [facility]. They stated ultrasound will likely be gone by the time he arrives. Patient then agreeable to [facility]. Differential Diagnosis Differential diagnosis: Likely other (DVT, CHF, PVD, venous insufficiency, medication related, renal failure, gravitational edema, cellulitis) Discharge Plan Discharge Clinical Impression: Left leg swelling Patient Disposition: Acute Care Hospital Condition: Stable Patient Language: Turkmen Prescriptions: No Action Breo Ellipta 200-25 mcg/dose blister with device See Rx Instructions .ROUTE .COMPLEX Dose Instruction: INHALE 1 PUFF BY MOUTH DAILY Rx Instructions: INHALE 1 PUFF BY MOUTH DAILY PRN fexofenadine [Alis Allergy] 60 mg Tablet 60 mg PO Q12H pravastatin 10 mg tablet See Rx Instructions .ROUTE .COMPLEX Qty: 90 1RF Dose Instruction: TAKE 1 TABLET BY MOUTH AT BEDTIME Rx Instructions: TAKE 1 TABLET BY MOUTH AT BEDTIME Follow-up/Referrals: Kaylah Lou DO [Primary Care Provider, [facility]] Time of Disposition: 14:51
== END 2024-12-03 15:06 | disposition short-term general hospital (02) ==
PROVIDERS: Emergency Provider Nurse Practitioner Family; PCP Family Medicine
DX: R22.42 Localized swelling, mass and lump, left lower limb (principal); F12.90 Cannabis use, unspecified, uncomplicated; E78.5 Hyperlipidemia, unspecified; M19.90 Unspecified osteoarthritis, unspecified site; Z87.891 Personal history of nicotine dependence
CPT/HCPCS: 99212; G0463

== ENCOUNTER 2024-12-03 15:30 | Emergency (ER) | payer MEDICARE, SELFPAY ==
--- OUTSIDE RECORDS SUMMARY | 2024-11-27 03:27 | XMS_ITS | Continuity of Care Document ---
Author Organization [facility] Address [address] [address] [place] [address] Phone Care Team Providers Care Java Web Developer Name Role Phone Erendira Em MD Unavailable [...] Provider Providers Copied on Encounter [facility] Sebastian melendez [facility], [place], [address], tel:[phone] [facility] Spinal stenosis, lumbar region without neurogenic claudicationS pondylosis without myelopathy or radiculopathy , lumbar regionSpinal stenosis, lumbosacral regionLow back pain, unspecified 5 Manav Rosas [address], [place], [place], [address]. tel:[phone] OFFICE/OUTPA TIENT VISIT EST [facility], [place], [address], tel:[phone] [facility] Low back pain, unspecifiedSp inal stenosis, lumbosacral regionSpondyl osis without myelopathy or radiculopathy , lumbar regionSpinal stenosis, lumbar region without neurogenic claudication 5 Zippay Erendira. [address], [place], [place], [id number]. tel:[phone] Referring Provider: Yoan Adame, [address] [place], [address]. tel:[phone] OFFICE/OUTPA TIENT VISIT EST [facility], [address], [place], [address], [place] tel:[phone] [facility] Spinal stenosis, lumbar region without neurogenic claudicationS pondylosis without myelopathy or radiculopathy , lumbar regionSpinal stenosis, lumbosacral regionLow back pain, unspecified Apr-1 1-202 5 Zippay Erendira. [address], [place], [place], [id number]. tel:[phone] Referring Provider: Yoan Adame, [address] [place], [address]. tel:[phone] [facility], [address] [address], [place], [address], [place] tel:[phone] [facility] Spinal stenosis, lumbar region without neurogenic claudication Jun-0 4-202 5 Zippay Erendira. [address], [place], [place], [address]. tel:[phone] OFFICE/OUTPA TIENT VISIT EST [facility], [address], [place], [address], [place] tel:[phone] [facility] Low back pain, unspecifiedSp inal stenosis, lumbosacral regionSpondyl osis without myelopathy or radiculopathy , lumbar regionSpinal stenosis, lumbar region without neurogenic claudication Dec-0 3-202 4 Zippay Erendira. [address], [place], [place], [address]. tel:[phone] Referring Provider: Yoan Adame, [address] [place], [address]. tel:[phone] OFFICE/OUTPA TIENT VISIT EST [facility], [address] [facility] [address], [place], [address], [place] tel:[phone] [facility] Low back pain, unspecifiedSp ondylosis without myelopathy or radiculopathy , lumbar regionSpinal stenosis, lumbosacral regionDDD (degenerative disc disease), lumbosacral Aug-3 4 Manav Erendira. [address], [place], [place], [id number]. tel:[phone] Referring Provider: Kaylah Adame, [place], [address]. tel:[phone] OFFICE/OUTPA TIENT VISIT EST [facility], [address] [facility] [address], [place], [address], [place] tel:[phone] [facility] DDD (degenerative disc disease), lumbosacralSp inal stenosis, lumbosacral regionLow back pain, unspecifiedSp ondylosis without myelopathy or radiculopathy , lumbar region 4 [facility] Erendira. [address], [place], [place], [address]. tel:[phone] Referring Provider: Kaylah Adame, [place], [address]. tel:[phone] OFFICE/OUTPA TIENT VISIT EST [facility], [address], [place], [address], [place] tel:[phone] [facility] Vertebrogenic low back painSpondylos is without myelopathy or radiculopathy , lumbar region Jul- 4 Aiden Morales. [address], [place], [address], [place]. tel:[phone] Referring Provider: Kaylah Adame, [place], [address]. tel:[phone] [facility], [address], [place], [address], [place] tel:[phone] [facility] [place] Spondylosis without myelopathy or radiculopathy , lumbar region Mar-0 6-202 4 Heck Andrew. [address], [place], [address], [place]. tel:[phone] Referring Provider: Kaylah Adame, [facility] [place], [address]. tel:[phone] [facility], [address], [place], [address], [place] tel:[phone] [facility] Spondylosis without myelopathy or radiculopathy , lumbar region 4 Heck Andrew. [address], [place], [address], [place]. tel:[phone] [facility], [address], [place], [address], [place] tel:[phone] [facility] Spondylosis without myelopathy or radiculopathy , lumbar region 4 Heck Andrew. [address], [place], [address], [place]. tel:[phone] Referring Provider: Kaylah Adame, [place], [address]. tel:[phone] [facility], [address], [place], [address], [place] tel:[phone] [facility] Spondylosis without myelopathy or radiculopathy , lumbar region 4 Heck Andrew. [address], [place], [address], [place]. tel:[phone] [facility], [address], [place], [address], [place] tel:[phone] [facility] Spondylosis without myelopathy or radiculopathy , lumbar region 4 Heck Andrew. [address], [place], [address], [place]. tel:[phone] Referring Provider: Kaylah Adame, [place], [address]. tel:[phone] [facility], [address] [facility] [address], [place], [address], [place] tel:[phone] [facility] Body mass index [BMI] 29.0-29.9, adult 4 Zippay Erendira. [address], [place], [place], [address]. tel:[phone] [facility], [address] [facility] [address], [place], [address], [place] tel:[phone] [facility] Spinal stenosis, lumbar region without neurogenic claudicationS mónica stenosis, lumbosacral regionLow back pain, unspecified 4 Zippay Erendira. [address], [place], [place], [address]. tel:[phone] OFFICE/OUTPA TIENT VISIT EST [facility], [address] [facility] [address], [place], [address], [place] tel:[phone] [facility] Body mass index [BMI] 29.0-29.9, adultSpondylo sis without myelopathy or radiculopathy , lumbar regionSpinal stenosis, lumbar region without neurogenic claudication Mar-0 3 Heck Andrew. [address], [place], [address], [place]. tel:[phone] Referring Provider: Kaylah Adame, [address] [place] [address] [place], [address]. tel:[phone] OFFICE/OUTPA TIENT VISIT EST [facility], [address] [facility], [place], [address], [place] tel:[phone] [facility] Low back pain, unspecifiedSp ondylosis without myelopathy or radiculopathy , lumbar regionSpinal stenosis, lumbosacral region Jan- 3 Zippay Erendira. [address], [place], [place], [address]. tel:[phone] Referring Provider: Kaylah Adame, [facility] [place], [address]. tel:[phone] [facility], [address] [facility] [address] [facility] [address], [place], [address], [place] tel:[phone] [facility] Spinal stenosis, lumbosacral regionSpondyl osis without myelopathy or radiculopathy , lumbar regionOther spondylosis with radiculopathy , lumbar regionLow back pain, unspecified 3 [facility] Erendira. [address], [place], [place], [id number]. tel:[phone] Referring Provider: Kaylah Adame, [facility] [place], [address]. tel:[phone] OFFICE/OUTPA TIENT VISIT EST [facility], [address] [facility] [address], [place], [address], [place] tel:[phone] [facility] Spondylosis without myelopathy or radiculopathy , lumbar regionOther spondylosis with radiculopathy , lumbar regionDDD (degenerative disc disease), lumbosacralSp inal stenosis, lumbosacral regionLow back pain, unspecifiedPr imary osteoarthriti s of left hip 3 [facility] Erendira. [address], [place], [place], [address]. tel:[phone] Referring Provider: Kaylah Adame, [place], [address]. tel:[phone] OFFICE/OUTPA TIENT VISIT EST [facility], [address] [facility] [address], [place], [address], [place] tel:[phone] [facility] Low back pain, unspecifiedSp inal stenosis, lumbosacral regionDDD (degenerative disc disease), lumbosacralOt her spondylosis with radiculopathy , lumbar regionSpondyl osis without myelopathy or radiculopathy , lumbar regionBody mass index [BMI] 29.0-29.9, adult 3 [facility] Erendira. [address], [place], [place], [address]. tel:[phone] Referring Provider: Kaylah Adame, [place], [address]. tel:[phone] [facility], [address] [facility] [address], [place], [address], [place] tel:[phone] [facility] Low back pain, unspecified Apr-0 5- 3 Zippay Erendira. [address], [place], [place], [address]. tel:[phone] OFFICE/OUTPA TIENT VISIT EST [facility], [address] [facility] [address], [place], [address], [place] tel:[phone] [facility] Body mass index [BMI] 29.0-29.9, adultLow back pain, unspecifiedDD D (degenerative disc disease), lumbosacralSp inal stenosis, lumbosacral regionPrimary osteoarthriti s of left hip Mar- 6- 2 [facility] Erendira. [address], [place], [place], [address]. tel:[phone] Referring Provider: Kaylah Adame, [place], [address]. tel:[phone] OFFICE/OUTPA TIENT VISIT EST [facility], [address] [facility] [address], [place], [address], [place] tel:[phone] [facility] Low back pain, unspecifiedOt her spondylosis with radiculopathy , lumbar regionPrimary osteoarthriti s of left hip Mar- 2- 2 Norma Sanjeev. [address], [place], [place], [address], [place]. tel:[phone] Referring Provider: Kaylah Adame, [place], [address]. tel:[phone] [facility], [address], [place], [address], [place] tel:[phone] [facility] Low back pain, unspecified Nov0 2 No Information Referring Provider: Sanjeev Green, [address], [place], [address]. tel:[phone] OFFICE/OUTPA TIENT VISIT EST [facility], [address] [facility] [address], [place], [address], [place] tel:[phone] [facility] Low back pain, unspecifiedSp ondylosis without myelopathy or radiculopathy , lumbar region 0 2 Norma Pace. [address], [place], [place], [address], [place]. tel:[phone] Referring Provider: Kaylah Adame, [place], [address]. tel:[phone] OFFICE/OUTPA TIENT VISIT NEW [facility], [address], [place], [address], [place] tel:[phone] [facility] Low back pain, unspecifiedSp ondylosis without myelopathy or radiculopathy , lumbar regionBody mass index [BMI] 29.0-29.9, adult Sep-0 2 Norma Pace. [address], [place], [place], [address], [place]. tel:[phone] Referring Provider: Kaylah Adame, [place], [address]. tel:[phone] Family History Family Member Type Diagnosis Age At Onset No Information Payers Payer name Insurance type Covered alliance party ID Luceroa saran(s) [facility] Medicare Advantage PPO OT [id number] Social History Type Description Quantity Date Captured [...] No Information Instructions Date Instruction Additional Infor meaghan Rest and Ice. Related to Spina l stenosis, lumbar region without neurogenic claudication Discussed treatment options Rela karolina to Spinal stenosis, lumbar region without neurogenic claudication Rest and Ice. Related to Spina l stenosis, lumbar region without neurogenic claudication Discussed treatment options Rela karolina to Spinal stenosis, lumbar region without neurogenic claudication Apply ice 20 min per hour Relate [...] stenosis, lumbar region w ithout neurogenic claudication assessment Spondylosis without myelopathy o r radiculopathy, lumbar region assessment Spinal stenosis, lumbosacral reg ion assessment Low back pain, unspecified Patient Care Teams Name Effective Dates (start - stop) Status Members No Information
--- OUTSIDE RECORDS SUMMARY | 2024-11-27 03:27 | XMS_ITS | Continuity of Care Document ---
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 tel:[phone] OFFICE/OUTPA TIENT VISIT EST [facility], [place], [address], tel:[phone] [facility] Low back pain, unspecifiedSp inal stenosis, lumbosacral regionSpondyl osis without myelopathy or radiculopathy , lumbar regionSpinal stenosis, lumbar region without neurogenic claudication 5 Zippay Erendira. [address], [place], [place], [address]. tel:[phone] Referring Provider: Yoan Adame, [address] [place], [address]. tel:[phone] OFFICE/OUTPA TIENT VISIT EST [facility], [address], [place], [address], [place] tel:[phone] [facility] Spinal stenosis, lumbar region without neurogenic claudicationS pondylosis without myelopathy or radiculopathy , lumbar regionSpinal stenosis, lumbosacral regionLow back pain, unspecified Apr-1 1-202 5 Zippay Erendira. [address], [place], [place], [address]. tel:[phone] Referring Provider: Yoan Adame, [address] [place], [address]. tel:[phone] [facility], [address] [address], [place], [address], [place] tel:[phone] [facility] Spinal stenosis, lumbar region without neurogenic claudication Jun-0 4-202 5 Zippay Erendira. [address], [place], [place], [address]. tel:[phone] OFFICE/OUTPA TIENT VISIT EST [facility], [address], [place], [address], [place] tel:[phone] [facility] Low back pain, unspecifiedSp inal stenosis, lumbosacral regionSpondyl osis without myelopathy or radiculopathy , lumbar regionSpinal stenosis, lumbar region without neurogenic claudication Dec-0 3-202 4 Zippay Erendira. [address], [place], [place], [address]. tel:[phone] Referring Provider: Yoan Adame, [address] [place], [address]. tel:[phone] OFFICE/OUTPA TIENT VISIT EST [facility], [address] [facility] [address], [place], [address], [place] tel:[phone] [facility] Low back pain, unspecifiedSp ondylosis without myelopathy or radiculopathy , lumbar regionSpinal stenosis, lumbosacral regionDDD (degenerative disc disease), lumbosacral Aug-3 4 Manav Erendira. [address], [place], [place], [address]. tel:[phone] Referring Provider: Kaylah Adame, [place], [address]. tel:[phone] OFFICE/OUTPA TIENT VISIT EST [facility], [address], [place], [address], [place] tel:[phone] [facility] DDD (degenerative disc disease), lumbosacralSp inal stenosis, lumbosacral regionLow back pain, unspecifiedSp ondylosis without myelopathy or radiculopathy , lumbar region 4 [facility] Erendira. [address], [place], [place], [address]. tel:[phone] Referring Provider: Kaylah Adame, [place], [address]. tel:[phone] OFFICE/OUTPA TIENT VISIT EST [facility], [address], [place], [address], [place] tel:[phone] [facility] Vertebrogenic low back painSpondylos is without myelopathy or radiculopathy , lumbar region Jul- 4 Aiden Morales. [address], [place], [address], [place]. tel:[phone] Referring Provider: Kaylah Adame, [place], [address]. tel:[phone] [facility], [address], [place], [address], [place] tel:[phone] [facility] [place] Spondylosis without myelopathy or radiculopathy , lumbar region Mar-0 6-202 4 Heck Andrew. [address], [place], [address], [place]. tel:[phone] Referring Provider: Kaylah Adame, [facility] [place], [address]. tel:[phone] [facility], [address], [place], [address], [place] tel:[phone] [facility] Spondylosis without myelopathy or radiculopathy , lumbar region 4 Heck Andrew. [address], [place], [address], [place]. tel:[phone] [facility], [address], [place], [address], [place] tel:[phone] [facility] Spondylosis without myelopathy or radiculopathy , lumbar region 4 Heck Andrew. [address], [place], [address], [place]. tel:[phone] Referring Provider: Kaylah Adame, [place], [address]. tel:[phone] [facility], [address], [place], [address], [place] tel:[phone] [facility] Spondylosis without myelopathy or radiculopathy , lumbar region 4 Heck Andrew. [address], [place], [address], [place]. tel:[phone] [facility], [address], [place], [address], [place] tel:[phone] [facility] Spondylosis without myelopathy or radiculopathy , lumbar region 4 Heck Andrew. [address], [place], [address], [place]. tel:[phone] Referring Provider: Kaylah Adame, [place], [address]. tel:[phone] [facility], [address] [facility] [address], [place], [address], [place] tel:[phone] [facility] Body mass index [BMI] 29.0-29.9, adult 4 Zippay Erendira. [address], [place], [place], [address]. tel:[phone] [facility], [address] [facility] [address], [place], [address], [place] tel:[phone] [facility] Spinal stenosis, lumbar region without neurogenic claudicationS mónica stenosis, lumbosacral regionLow back pain, unspecified 4 Zippay Erendira. [address], [place], [place], [address]. tel:[phone] OFFICE/OUTPA TIENT VISIT EST [facility], [address] [facility] [address], [place], [address], [place] tel:[phone] [facility] Body mass index [BMI] 29.0-29.9, adultSpondylo sis without myelopathy or radiculopathy , lumbar regionSpinal stenosis, lumbar region without neurogenic claudication Mar-0 3 Heck Andrew. [address], [place], [address], [place]. tel:[phone] Referring Provider: Kaylah Adame, [address] [place] [address] [place], [address]. tel:[phone] OFFICE/OUTPA TIENT VISIT EST [facility], [address] [facility] [address], [place], [address], [place] tel:[phone] [facility] Low back pain, unspecifiedSp ondylosis without myelopathy or radiculopathy , lumbar regionSpinal stenosis, lumbosacral region Jan- 3 Zippay Erendira. [address], [place], [place], [address]. tel:[phone] Referring Provider: Kaylah Adame, [facility] [place], [address]. tel:[phone] [facility], [address] [facility] [address] [facility] [address], [place], [address], [place] tel:[phone] [facility] Spinal stenosis, lumbosacral regionSpondyl osis without myelopathy or radiculopathy , lumbar regionOther spondylosis with radiculopathy , lumbar regionLow back pain, unspecified [address] [facility] Erendira. [address], [place], [place], [address]. tel:[phone] Referring Provider: Kaylah Adame, [facility] [place], [address]. tel:[phone] OFFICE/OUTPA TIENT VISIT EST [facility], [address] [facility] [address], [place], [address], [place] tel:[phone] [facility] Spondylosis without myelopathy or radiculopathy , lumbar regionOther spondylosis with radiculopathy , lumbar regionDDD (degenerative disc disease), lumbosacralSp inal stenosis, lumbosacral regionLow back pain, unspecifiedPr imary osteoarthriti s of left hip [address] [facility] Erendira. [address], [place], [place], [address]. tel:[phone] Referring Provider: Kaylah Adame, [place], [address]. tel:[phone] OFFICE/OUTPA TIENT VISIT EST [facility], [address] [facility] [address], [place], [address], [place] tel:[phone] [facility] Low back pain, unspecifiedSp inal stenosis, lumbosacral regionDDD (degenerative disc disease), lumbosacralOt her spondylosis with radiculopathy , lumbar regionSpondyl osis without myelopathy or radiculopathy , lumbar regionBody mass index [BMI] 29.0-29.9, adult 3 [facility] Erendira. [address], [place], [place], [address]. tel:[phone] Referring Provider: Kaylah Adame, [place], [address]. tel:[phone] [facility], [address] [facility] [address], [place], [address], [place] tel:[phone] [facility] Low back pain, unspecified Apr-0 5- 3 Zippay Erendira. [address], [place], [place], [address]. tel:[phone] OFFICE/OUTPA TIENT VISIT EST [facility], [address] [facility] [address], [place], [address], [place] tel:[phone] [facility] Body mass index [BMI] 29.0-29.9, adultLow back pain, unspecifiedDD D (degenerative disc disease), lumbosacralSp inal stenosis, lumbosacral regionPrimary osteoarthriti s of left hip Mar- 6- 2 [facility] Erendira. [address], [place], [place], [address]. tel:[phone] Referring Provider: Kaylah Adame, [place], [address]. tel:[phone] OFFICE/OUTPA TIENT VISIT EST [facility], [address] [facility] [address], [place], [address], [place] tel:[phone] [facility] Low back pain, unspecifiedOt her spondylosis with radiculopathy , lumbar regionPrimary osteoarthriti s of left hip Mar- 2- 2 Norma Sanjeev. [address], [place], [place], [address], [place]. tel:[phone] Referring Provider: Kaylah Adame, [place], [address]. tel:[phone] [facility], [address], [place], [address], [place] tel:[phone] [facility] Low back pain, unspecified Nov0 2 No Information Referring Provider: Sanjeev Green, [address], [place], [address]. tel:[phone] OFFICE/OUTPA TIENT VISIT EST [facility], [address] [facility] [address], [place], [address], [place] tel:[phone] [facility] Low back pain, unspecifiedSp ondylosis without myelopathy or radiculopathy , lumbar region 0 2 Norma Pace. [address], [place], [place], [address], [place]. tel:[phone] Referring Provider: Kaylah Adame, [place], [address]. tel:[phone] OFFICE/OUTPA TIENT VISIT NEW [facility], [address], [place], [address], [place] tel:[phone] [facility] Low back pain, unspecifiedSp ondylosis without myelopathy or radiculopathy , lumbar regionBody mass index [BMI] 29.0-29.9, adult Sep-0 2 Norma Pace. [address], [place], [place], [address], [place]. tel:[phone] Referring Provider: Kaylah Adame, [place], [address]. tel:[phone] Family History Family Member Type Diagnosis Age At Onset No Information Payers Payer name Insurance type Covered green party ID Luceroa saran(s) [facility] Medicare Advantage PPO OT [id number] Social History Type Description Quantity Date Captured [...]
--- NOTE | ~2024-12-03 | US_ITS ---
EXAMINATION: US venous doppler [facility] DATE: 12/03/2024 16:53 INDICATION: Left lower limb pain, swelling and erythema TECHNIQUE: Grayscale ultrasound images without and with compression and Doppler ultrasound images of the left lower extremity veins were obtained. COMPARISON: None. FINDINGS: There is noncompressible occlusive appearing thrombus in the mid to distal left femoral vein, popliteal vein, gastric knees vein, posterior tibial veins and peroneal veins. The visualized portions of left common femoral vein, profunda (deep) femoral vein, proximal femoral vein and proximal to mid left greater saphenous vein are patent. IMPRESSION: 1. Extensive above and [id number] deep venous thrombosis in the left lower limb. Dr. Child discussed these findings with Dr. Cast at 5:47 PM. Reviewed, dictated and finalized at location A. IMPRESSION: 1. Extensive above and [id number] deep venous thrombosis in the left lower limb. Dr. Child discussed these findings with Dr. Cast at 5:47 PM.
--- OUTSIDE RECORDS SUMMARY | 2024-12-03 15:38 | XMS_ITS | Clinical Summary ---
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 Gender Identity Not on file Sexual Orientation Not on file Obstetrics History Last Filed Vital Signs Vital Sign Reading Time Taken Comments Blood Pressure 126/72 02/18/2022 12:40 PM FIELD RETURN REPAIRER Pulse 71 02/18/2022 12:50 PM FIELD RETURN REPAIRER Temperature 36.4 C (97.5 F) 02/18/2022 12:15 PM FIELD RETURN REPAIRER Respiratory Rate 15 02/18/2022 12:50 PM FIELD RETURN REPAIRER Oxygen Saturation 92% 02/18/2022 12:50 PM FIELD RETURN REPAIRER Inhaled Oxygen Concentration - - Weight 114.8 kg (253 lb) 03/02/2022 3:25 PM FIELD RETURN REPAIRER Height 190.5 cm (6' 3) 02/04/2022 11:10 [...] , 02/09/2018, 12/21/2016, Additional history exists Insurance [facility] MEDIC[facility] Address: [place] [address] UHC MEDICARE ADVANTAGE [facility] MED[facility] Address: [place] [address] UHC MEDICARE ADVANTAGE Care Teams Fly Frame Tender Relationship Specialty Start Date End Date Kaylah Lou DO PCP - General Family Medicine 10/16/21
--- OUTSIDE RECORDS SUMMARY | 2024-12-03 15:38 | XMS_ITS | Clinical Summary ---
Author Organization [facility] Address [address] [place] [address] Care Team Providers Care Assistant Professor Of Biology Name Role Phone Jaleel Kerr MD Primary Care Provider [phone] Kalen Vasquez MD Unavailable [phone] Source Comments [facility],non-owned Affiliates and Associated Physician Practices is amultiple site organization consisting of ambulatory clinics and hospital sitesin [place], [place], [place] and [place]. This disclosure is being madepursuant to the Care Everywhere program and may not contain all information available regarding this patient. 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
[2024-12-03 15:50] VITALS: BP 133/79; PULSE 87; RESP 18; TEMP 36.4; O2SAT 98
--- NOTE | 2024-12-03 17:16 | ED.EXTPRO ---
HPI - Extremity Problem General Chief complaint: Extremity Problem,Nontraumatic Stated complaint: I'm supposed to come here for an ultrasound Time Seen by Provider: 12/03/24 16:12 History of Present Illness HPI Narrative: 74-year-old male presents ER complaining of left lower leg swelling. States the swelling has been present for 5-6 days. Denies injury or trauma to the left leg. No history of DVTs. Denies the extended periods of immobility. No history of cancer. Has been wearing compression stocks since onset of symptoms. Related Data Home Medications ?Medication ?Instructions ?Recorded ?Confirmed ?Last Taken ?Type fexofenadine 60 mg tablet (Alis 60 mg PO Q12H 02/08/19 08/02/24 02/12/19 History Allergy) fluticasone furoate 200 See Rx Instructions .Route .COMPLEX 02/07/23 08/02/24 Unknown History mcg-vilanterol 25 mcg/dose inhalation powder (Breo Ellipta) Allergies Allergy/AdvReac Type Severity Reaction Status Date / Time dog dander Allergy Intermediate itchy eyes Verified 12/03/24 15:32 and scratchy throat grass pollen Allergy Intermediate itchy eyes Verified 12/03/24 15:32 and scratchy throat cat dander Allergy itchy eyes Verified 12/03/24 15:32 and scratchy throat pollen extracts Allergy itchy eyes Verified 12/03/24 15:32 and scratchy throat tree and shrub pollen Allergy itchy eyes Verified 12/03/24 15:32 and scratchy throat Review of Systems Review of Systems: All systems reviewed & are unremarkable except as noted in HPI and below PMFSH Past Medical History Medical History Hepatitis C antibody test negative (02/14/19) History of hearing problem Kidney stone (~1999) Bronchitis Arthritis Hyperlipidemia Surgical History Surgical History History of colonoscopy (~2008) History of knee replacement (~2009) Family History Family History Sibling Diabetes mellitus Family history of pancreatic cancer Family history of malignant neoplasm of breast Mother Hypertension Family history of malignant neoplasm of ovary Father Family history of cardiovascular disease, Onset Age: 56 Acute myocardial infarction, Onset Age: 56 Social History Social History Smoking status: Former smoker Smoking end date: 04/11/99 Alcohol intake: never Substance use: current Substance use type: marijuana Other substance usage details: Gummies thc/cbd to help sleep Lack of Transportation: No Lack of Food: Never True Current Housing: I Have Housing Concerned About Future Housing: No Difficulty Paying Gas/Electric Bills: No Difficulty Paying for Meds: No Currently Unemployed: No Education: Trade/Vocational Certificate Difficulty w/ Childcare or Family Care: No Living arrangements: with family Additional living arrangements comments: Occupation/Education: retired Gender identity (if verbalized by the patient): Male Sexual Orientation (if Verbalized by the Patient): Straight or Heterosexual Agree to blood products: Yes Exam Const: General: healthy appearing and ill appearing Nutritional Appearance: well nourished Orientation/consciousness: patient oriented x3 Limitations: no limitations HENMT: Head: normal to inspection Eyes: Conjunctivae: conjunctivae normal Resp: Effort & Inspection: normal respiratory effort and uses accessory muscles Auscultation: clear to auscultation bilaterally and breath sounds absent Cardio: Rate: regular rate Rhythm: regular rhythm Skin: General skin exam: normal color Rashes: no rashes Wounds: no wounds Neuro: General: patient oriented x3, moves all extremities, no focal motor deficits and CN's II-XI intact bilaterally Speech: normal speech Gait exam (Neuro): Normal gait present Extrem: Other: Left lower extremity: Diffuse swelling. No noted wounds. Negative Homans sign. Distal pulses present Psych: Mental Status: mental status grossly normal Affect: normal affect Attitude: cooperative Course Vital Signs Vital signs: Vital Signs Temperature 36.4 C 12/03/24 15:50 Pulse Rate 87 12/03/24 15:50 Respiratory Rate 18 12/03/24 15:50 Blood Pressure 133/79 12/03/24 15:50 Pulse Oximetry 98 12/03/24 15:50 Oxygen Delivery Room Air 12/03/24 15:50 Temperature 36.4 C 12/03/24 15:50 Pulse Rate 87 12/03/24 15:50 Respiratory Rate 18 12/03/24 15:50 Blood Pressure 133/79 12/03/24 15:50 Pulse Oximetry 98 12/03/24 15:50 Oxygen Delivery Room Air 12/03/24 15:50 MDM - Extremity (Nontraumatic) MDM Narrative Medical decision making narrative: 74-year-old male presents to the ER complaining of left leg swelling for 1 week. Patient was instructed to come to the ER for further evaluation by his PCP. Ultrasound of the left lower leg shows evidence of proximal and distal DVT. Differential includes venous stasis, thrombophlebitis, lymphedema, cellulitis, DVT. Patient was started on Eliquis. Refer patient back to PCP for further management Discharge Plan Discharge Clinical Impression: DVT (deep venous thrombosis) Patient Disposition: Home Condition: Stable Instructions: Antibiotic Form, Deep Vein Thrombosis (ED) Patient Language: Liberian Prescriptions: New Eliquis 5 mg tablet 10 mg PO BID 7 Days Qty: 28 0RF No Action Breo Ellipta 200-25 mcg/dose blister with device See Rx Instructions .ROUTE .COMPLEX Dose Instruction: INHALE 1 PUFF BY MOUTH DAILY Rx Instructions: INHALE 1 PUFF BY MOUTH DAILY PRN fexofenadine [Alis Allergy] 60 mg Tablet 60 mg PO Q12H pravastatin 10 mg tablet See Rx Instructions .ROUTE .COMPLEX Qty: 90 1RF Dose Instruction: TAKE 1 TABLET BY MOUTH AT BEDTIME Rx Instructions: TAKE 1 TABLET BY MOUTH AT BEDTIME Follow-up/Referrals: Kaylah Lou DO [Primary Care Provider, Family Practice] Time of Disposition: 18:01
--- OUTSIDE RECORDS SUMMARY | 2024-12-03 17:22 | XMS_ITS | Clinical Summary ---
Author Organization [facility] Address [address] [place] [address] Care Team Providers Care Lead Front Desk Agent Name Role Phone Kaylah Lou DO Primary Care Provider [phone] Allergies No known active allergies Medications pravastatin [...] on file Legal Sex Male 12:13 AM QA ENGINEER Gender Identity Not on file Sexual Orientation Not on file Obstetrics History Last Filed Vital Signs Vital Sign Reading Time Taken Comments Blood Pressure 126/72 02/18/2022 12:40 PM QA ENGINEER Pulse 71 02/18/2022 12:50 PM QA ENGINEER Temperature 36.4 C (97.5 F) 02/18/2022 12:15 PM QA ENGINEER Respiratory Rate 15 02/18/2022 12:50 PM QA ENGINEER Oxygen Saturation 92% 02/18/2022 12:50 PM QA ENGINEER Inhaled Oxygen Concentration - - Weight 114.8 kg (253 lb) 03/02/2022 3:25 PM QA ENGINEER Height 190.5 cm (6' 3) 02/04/2022 11:10 [...] MEDICARE ADVANTAGE [employer]HC MEDICARE ADVANTAGE Care Teams Lead Front Desk Agent Relationship Specialty Start Date End Date Kaylah Lou DO PCP - General Family Medicine 10/16/21
--- OUTSIDE RECORDS SUMMARY | 2024-12-03 17:22 | XMS_ITS | Clinical Summary ---
Author Organization [facility] Address [address] [place] [address] Care Team Providers Care Circular Knitter Name Role Phone Jaleel Kerr MD Primary Care Provider [phone] Kalen Vasquez MD Unavailable [phone] Source Comments [facility],non-owned Affiliates and Associated Physician Practices is amultiple site organization consisting of ambulatory clinics and hospital sitesin [place], [place], [place] and [place]. This disclosure is being madepursuant to the Care Everywhere program and may not contain all information available regarding this patient. 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
[2024-12-03] MEDS: APIXABAN 5 MG TABLET 10 MG PO (18:17)
--- NOTE | 2024-12-03 18:17 | PCCCNOTE ---
Called to the pt's room to ensure he was able to afford his new rx of Eliquis. Called [facility] and spoke to the pharmacist. Clarified the rx with Dr. Winkler this should be the starter pack x30 days. Stated it would cost the pt $50/month. Spoke with the pt and let him know he will be receiving a dose tonight and to call the pharmacy in the morning when the rx will be available to continue the regimen. Also instructed him to call his PCP and let them know he was in the ED for a f/u apt. Pt verbalized understanding. ED provider and nurse were updated.-gino
== END 2024-12-03 18:24 | disposition home or self-care (01) ==
PROVIDERS: Emergency Provider Nurse Practitioner Family; PCP Family Medicine
DX: I82.412 Acute embolism and thrombosis of left femoral vein (principal); I82.432 Acute embolism and thrombosis of left popliteal vein; I82.452 Acute embolism and thrombosis of left peroneal vein; I82.442 Acute embolism and thrombosis of left tibial vein; I82.462 Acute embolism and thrombosis of left calf muscular vein; E78.5 Hyperlipidemia, unspecified; M19.90 Unspecified osteoarthritis, unspecified site; Z96.659 Presence of unspecified artificial knee joint; Z87.442 Personal history of urinary calculi; Z87.891 Personal history of nicotine dependence; Z79.899 Other long term (current) drug therapy
CPT/HCPCS: 93971; 99284; A9270

== ENCOUNTER 2024-12-07 13:57 | Emergency (ER) | payer MEDICARE, SELFPAY ==
--- OUTSIDE RECORDS SUMMARY | 2024-10-03 12:30 | XMS_ITS ---
Author Organization [employer] [place] ([address]) Address [address] [place] [address] Care Team Providers Care Research Librarian Name Role Phone MonsechloeKaylah monson Primary Care Provider Mery Rojas Unavailable [phone] REASON FOR VISIT SCIT - Traditional Schedule [...] review and pick correct strength-formulati on from ANDalyze options. If intended option is not shown, [...] Male Encounters Encounter Location Date Provider Diagnosis [facility] [address] [address] 10/03/2024 Mery Collins Allergic rhinitis du e [...] Up: 4 Weeks, Reason: Progress Notes * CHAPINDeepry ADOB:1950 (74 yo M)Acc No.[id number]:10/03/2024 SCIT-Aeroallergen Patient: Martin AHUMADA Provider: Emily Collins MD :1950 A ge:74 Y S ex:Male Date:10/03/2024 Address:[address], [id number] Pcp:Kaylah Lou Subjective: * Chief Complaints: * [...] *Please review and pick correct strength-formulation from Ortho-tagspan options. If intended option is not shown, discontinue and re-order from Quick Search*, Taking Alis Allergy 180 MG Tablet 1 tab(s) orally once a day , Taking EpiPen 2-Bentley 0.3 MG/0.3ML Solution Auto-injector 0.3 mg intramuscularly once , Taking Nasacort Allergy 24HR , Notes to Pharmacist: *Please review and pick correct strength-formulation from Ortho-tagspan options. If intended option is not shown, [...] Information: * Visit Code: * Procedure Codes: 79431 IMMUNOTHERAPY INJECTIONS. * Electronic signature of Kelly Collins MD on 12/07/2024 at 01:59 PM CDT Sign off status: Pending * Provider: Emily Collins MD Date: 10/03/2024 Generated for Jr villegas/Adan/Maeve on: 12/07/2024 01:59 PM CDT History and Physical Notes * [...]
--- OUTSIDE RECORDS SUMMARY | 2024-11-27 03:27 | XMS_ITS | Continuity of Care Document ---
Author Organization [facility] Address [address] [address] [place] [address] Phone Care Team Providers Care Bail Agent Name Role Phone Erendira Em MD Unavailable [...] Copied on Encounter [facility] Sebastian melendez [facility], [place], [address], tel:[phone] [facility] Spinal stenosis, lumbar region without neurogenic claudicationS pondylosis without myelopathy or radiculopathy , lumbar regionSpinal stenosis, lumbosacral regionLow back pain, unspecified 5 Manav Rosas [address], [place], [place], [address]. tel:[phone] OFFICE/OUTPA TIENT VISIT EST [facility] [address], [place], [address], tel:[phone] [facility] Low back pain, unspecifiedSp inal stenosis, lumbosacral regionSpondyl osis without myelopathy or radiculopathy , lumbar regionSpinal stenosis, lumbar region without neurogenic claudication 5 Zippay Erendira. [address], [place], [place], [address]. tel:[phone] Referring Provider: Yoan Adame, [address] [place], [address]. tel:[phone] OFFICE/OUTPA TIENT VISIT EST [facility], [address] [facility] [address], [place], [address], [place] tel:[phone] [facility] Spinal stenosis, lumbar region without neurogenic claudicationS pondylosis without myelopathy or radiculopathy , lumbar regionSpinal stenosis, lumbosacral regionLow back pain, unspecified Apr-1 1-202 5 Zippay Erendira. [address], [place], [place], [address]. tel:[phone] Referring Provider: Yoan Adame, [address] [place], [address]. tel:[phone] [facility], [address] [address], [place], [address], [place] tel:[phone] [facility] Spinal stenosis, lumbar region without neurogenic claudication Jun-0 4-202 5 Zippay Erendira. [address], [place], [place], [address]. tel:[phone] OFFICE/OUTPA TIENT VISIT EST [facility], [address] [facility] [address], [place], [address], [place] tel:[phone] [facility] Low back pain, unspecifiedSp inal stenosis, lumbosacral regionSpondyl osis without myelopathy or radiculopathy , lumbar regionSpinal stenosis, lumbar region without neurogenic claudication Dec-0 3-202 4 Zippay Erendira. [address], [place], [place], [address]. tel:[phone] Referring Provider: Yoan Adame, [address] [place], [address]. tel:[phone] OFFICE/OUTPA TIENT VISIT EST [facility], [address] [facility] [address], [place], [address], [place] tel:[phone] [facility] Low back pain, unspecifiedSp ondylosis without myelopathy or radiculopathy , lumbar regionSpinal stenosis, lumbosacral regionDDD (degenerative disc disease), lumbosacral Aug-3 4 Manav Erendira. [address], [place], [place], [address]. tel:[phone] Referring Provider: Kaylah Adame, [place], [address]. tel:[phone] OFFICE/OUTPA TIENT VISIT EST [facility], [address] [facility] [address], [place], [address], [place] tel:[phone] [facility] DDD (degenerative disc disease), lumbosacralSp inal stenosis, lumbosacral regionLow back pain, unspecifiedSp ondylosis without myelopathy or radiculopathy , lumbar region 4 [facility] Erend[facility]. [address], [place], [place], [address]. tel:[phone] Referring Provider: Kaylah Adame, [place], [address]. tel:[phone] OFFICE/OUTPA TIENT VISIT EST [facility], [address], [place], [address], [place] tel:[phone] [facility] Vertebrogenic low back painSpondylos is without myelopathy or radiculopathy , lumbar region Jul- 4 Aiden Morales. [address], [place], [address], [place]. tel:[phone] Referring Provider: Kaylah Adame, [place], [address]. tel:[phone] [facility], [address], [place], [address], [place] tel:[phone] [facility] [place] Spondylosis without myelopathy or radiculopathy , lumbar region Mar-0 6-202 4 Heck Andrew. [address], [place], [address], [place]. tel:[phone] Referring Provider: Kaylah Adame, [facility] [place], [address]. tel:[phone] [facility], [address], [place], [address], [place] tel:[phone] [facility] Spondylosis without myelopathy or radiculopathy , lumbar region 4 Heck Andrew. [address], [place], [address], [place]. tel:[phone] [facility], [address], [place], [address], [place] tel:[phone] [facility] Spondylosis without myelopathy or radiculopathy , lumbar region 4 Heck Andrew. [address], [place], [address], [place]. tel:[phone] Referring Provider: Kaylah Adame, [place], [address]. tel:[phone] [facility], [address], [place], [address], [place] tel:[phone] [facility] Spondylosis without myelopathy or radiculopathy , lumbar region 4 Heck Andrew. [address], [place], [address], [place]. tel:[phone] [facility], [address], [place], [address], [place] tel:[phone] [facility] Spondylosis without myelopathy or radiculopathy , lumbar region 4 Heck Andrew. [address], [place], [address], [place]. tel:[phone] Referring Provider: Kaylah Adame, [place], [address]. tel:[phone] [facility], [address] [facility] [address], [place], [address], [place] tel:[phone] [facility] Body mass index [BMI] 29.0-29.9, adult 4 Zippay Erendira. [address], [place], [place], [address]. tel:[phone] [facility], [address] [facility] [address], [place], [address], [place] tel:[phone] [facility] Spinal stenosis, lumbar region without neurogenic claudicationS mónica stenosis, lumbosacral regionLow back pain, unspecified 4 Zippay Erendira. [address], [place], [place], [address]. tel:[phone] OFFICE/OUTPA TIENT VISIT EST [facility], [address] [facility] [address], [place], [address], [place] tel:[phone] [facility] Body mass index [BMI] 29.0-29.9, adultSpondylo sis without myelopathy or radiculopathy , lumbar regionSpinal stenosis, lumbar region without neurogenic claudication Mar-0 3 Heck Andrew. [address], [place], [address], [place]. tel:[phone] Referring Provider: Kaylah Adame, [address] [place] [address] [place], [address]. tel:[phone] OFFICE/OUTPA TIENT VISIT EST [facility], [address] [facility] [address], [place], [address], [place] tel:[phone] [facility] Low back pain, unspecifiedSp ondylosis without myelopathy or radiculopathy , lumbar regionSpinal stenosis, lumbosacral region Jan- 3 Zippay Erendira. [address], [place], [place], [address]. tel:[phone] Referring Provider: Kaylah Adame, [facility] [place], [address]. tel:[phone] [facility], [address] [facility] [address] [facility] [address], [place], [address], [place] tel:[phone] [facility] Spinal stenosis, lumbosacral regionSpondyl osis without myelopathy or radiculopathy , lumbar regionOther spondylosis with radiculopathy , lumbar regionLow back pain, unspecified 3 [facility] Erendira. [address], [place], [place], [address]. tel:[phone] Referring Provider: Kaylah Adame, [facility] [place], [address]. tel:[phone] OFFICE/OUTPA TIENT VISIT EST [facility], [address] [facility] [address], [place], [address], [place] tel:[phone] [facility] Spondylosis without myelopathy or radiculopathy , lumbar regionOther spondylosis with radiculopathy , lumbar regionDDD (degenerative disc disease), lumbosacralSp inal stenosis, lumbosacral regionLow back pain, unspecifiedPr imary osteoarthriti s of left hip 3 [facility] Erendira. [address], [place], [place], [address]. tel:[phone] Referring Provider: Kaylah Adame, [place], [address]. tel:[phone] OFFICE/OUTPA TIENT VISIT EST [facility], [address] [facility] [address], [place], [address], [place] tel:[phone] [facility] Low back pain, unspecifiedSp inal stenosis, lumbosacral regionDDD (degenerative disc disease), lumbosacralOt her spondylosis with radiculopathy , lumbar regionSpondyl osis without myelopathy or radiculopathy , lumbar regionBody mass index [BMI] 29.0-29.9, adult 3 [facility] Erendira. [address], [place], [place], [address]. tel:[phone] Referring Provider: Kaylah Adame, [place], [address]. tel:[phone] [facility], [address] [facility] [address], [place], [address], [place] tel:[phone] [facility] Low back pain, unspecified Apr-0 5- 3 Zippay Erendira. [address], [place], [place], [address]. tel:[phone] OFFICE/OUTPA TIENT VISIT EST [facility], [address] [address] [facility] [address], [place], [address], [place] tel:[phone] [facility] Body mass index [BMI] 29.0-29.9, adultLow back pain, unspecifiedDD D (degenerative disc disease), lumbosacralSp inal stenosis, lumbosacral regionPrimary osteoarthriti s of left hip Mar- 6- 2 [facility] E[facility]ira. [address], [place], [place], [address]. tel:[phone] Referring Provider: Kaylah Adame, [place], [address]. tel:[phone] OFFICE/OUTPA TIENT VISIT EST [facility], [address] [address] [facility] [address], [place], [address], [place] tel:[phone] [facility] Low back pain, unspecifiedOt her spondylosis with radiculopathy , lumbar regionPrimary osteoarthriti s of left hip Mar- 2- 2 Norma Sanjeev. [address], [place], [place], [address], [place]. tel:[phone] Referring Provider: Kaylah Adame, [place], [address]. tel:[phone] [facility], [address], [place], [address], [place] tel:[phone] [facility] Low back pain, unspecified Nov0 2 No Information Referring Provider: Sanjeev Green, [address], [place], [address]. tel:[phone] OFFICE/OUTPA TIENT VISIT EST [facility], [address] [address] [facility] [address], [place], [address], [place] tel:[phone] [facility] Low back pain, unspecifiedSp ondylosis without myelopathy or radiculopathy , lumbar region 0 2 Norma Pace. [address], [place], [place], [address], [place]. tel:[phone] Referring Provider: Kaylah Adame, [place], [address]. tel:[phone] OFFICE/OUTPA TIENT VISIT NEW [facility], [address], [place], [address], [place] tel:[phone] [facility] Low back pain, unspecifiedSp ondylosis without myelopathy or radiculopathy , lumbar regionBody mass index [BMI] 29.0-29.9, adult Sep-0 2 Norma Pace. [address], [place], [place], [address], [place]. tel:[phone] Referring Provider: Kaylah Adame, [place], [address]. tel:[phone] Family History Family Member Type Diagnosis Age At Onset No Information Payers Payer name Insurance type Covered republican ID Luceroa saran(s) [facility] Medicare Advantage PPO [id number] Social History Type Description Quantity Date Captured [...]
--- OUTSIDE RECORDS SUMMARY | 2024-11-27 03:27 | XMS_ITS | Continuity of Care Document ---
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 tel:[phone] OFFICE/OUTPA TIENT VISIT EST [facility] [address], [place], [address], tel:[phone] [facility] Low back pain, unspecifiedSp inal stenosis, lumbosacral regionSpondyl osis without myelopathy or radiculopathy , lumbar regionSpinal stenosis, lumbar region without neurogenic claudication 5 Zippay Erendira. [address] [facility] [address], [place], [place], [id number]. tel:[phone] Referring Provider: Yoan Adame, [address] [place], [address]. tel:[phone] OFFICE/OUTPA TIENT VISIT EST [facility], [address] [facility] [address], [place], [address], [place] tel:[phone] [facility] Spinal stenosis, lumbar region without neurogenic claudicationS pondylosis without myelopathy or radiculopathy , lumbar regionSpinal stenosis, lumbosacral regionLow back pain, unspecified Apr-1 1-202 5 Zippay Erendira. [address] [facility] [address], [place], [place], [id number]. tel:[phone] Referring Provider: Yoan Adame, [address] [place], [address]. tel:[phone] [facility], [address] [address], [place], [address], [place] tel:[phone] [facility] Spinal stenosis, lumbar region without neurogenic claudication Jun-0 4-202 5 Zippay Erendira. [address] [facility] [address], [place], [place], [address]. tel:[phone] OFFICE/OUTPA TIENT VISIT EST [facility], [address] [facility] [address], [place], [address], [place] tel:[phone] [facility] Low back pain, unspecifiedSp inal stenosis, lumbosacral regionSpondyl osis without myelopathy or radiculopathy , lumbar regionSpinal stenosis, lumbar region without neurogenic claudication Dec-0 3-202 4 Zippay Erendira. [address] [facility] [address], [place], [place], [id number]. tel:[phone] Referring Provider: Yoan Adame, [address] [place], [address]. tel:[phone] OFFICE/OUTPA TIENT VISIT EST [facility], [address] [facility] [address], [place], [address], [place] tel:[phone] [facility] Low back pain, unspecifiedSp ondylosis without myelopathy or radiculopathy , lumbar regionSpinal stenosis, lumbosacral regionDDD (degenerative disc disease), lumbosacral Aug-3 4 Manav Erendira. [address], [place], [place], [id number]. tel:[phone] Referring Provider: Kaylah Adame, [place], [address]. tel:[phone] OFFICE/OUTPA TIENT VISIT EST [facility], [address] [facility] [address], [place], [address], [place] tel:[phone] [facility] DDD (degenerative disc disease), lumbosacralSp inal stenosis, lumbosacral regionLow back pain, unspecifiedSp ondylosis without myelopathy or radiculopathy , lumbar region 4 [facility] Erendira. [address], [place], [place], [id number]. tel:[phone] Referring Provider: Kaylah Adame, [place], [address]. tel:[phone] OFFICE/OUTPA TIENT VISIT EST [facility], [address], [place], [address], [place] tel:[phone] [facility] Vertebrogenic low back painSpondylos is without myelopathy or radiculopathy , lumbar region Jul- 4 Aiden Morales. [address], [place], [address], [place]. tel:[phone] Referring Provider: Kaylah Adame, [place], [address]. tel:[phone] [facility], [address], [place], [address], [place] tel:[phone] [facility] Spondylosis without myelopathy or radiculopathy , lumbar region Mar-0 6-202 4 Heck Andrew. [address], [place], [address], [place]. tel:[phone] Referring Provider: Kaylah Adame, [facility] [place], [address]. tel:[phone] [facility], [address], [place], [address], [place] tel:[phone] [facility] Spondylosis without myelopathy or radiculopathy , lumbar region 4 Heck Andrew. [address], [place], [address], [place]. tel:[phone] [facility], [address], [place], [address], [place] tel:[phone] [facility] Spondylosis without myelopathy or radiculopathy , lumbar region 4 Heck Andrew. [address], [place], [address], [place]. tel:[phone] Referring Provider: Kaylah Adame, [place], [address]. tel:[phone] [facility], [address], [place], [address], [place] tel:[phone] [facility] Spondylosis without myelopathy or radiculopathy , lumbar region 4 Heck Andrew. [address], [place], [address], [place]. tel:[phone] [facility], [address], [place], [address], [place] tel:[phone] [facility] Spondylosis without myelopathy or radiculopathy , lumbar region 4 Heck Anrdew. [address], [place], [address], [place]. tel:[phone] Referring Provider: Kaylah Adame, [place], [address]. tel:[phone] [facility], [address] [facility] [address], [place], [address], [place] tel:[phone] [facility] Body mass index [BMI] 29.0-29.9, adult 4 Zippay Erendira. [address] [facility] [address], [place], [place], [id number]. tel:[phone] [facility], [address] [facility] [address], [place], [address], [place] tel:[phone] [facility] Spinal stenosis, lumbar region without neurogenic claudicationS mónica stenosis, lumbosacral regionLow back pain, unspecified 4 Zippay Erendira. [address] [facility] [address], [place], [place], [id number]. tel:[phone] OFFICE/OUTPA TIENT VISIT EST [facility], [address] [facility] [address], [place], [address], [place] tel:[phone] [facility] Body mass index [BMI] 29.0-29.9, adultSpondylo sis without myelopathy or radiculopathy , lumbar regionSpinal stenosis, lumbar region without neurogenic claudication Mar-0 3 Heck Andrew. [address] [facility] [address], [place], [address], [place]. tel:[phone] Referring Provider: Kaylah Adame, [address] [place] [address] [place], [address]. tel:[phone] OFFICE/OUTPA TIENT VISIT EST [facility], [address] [facility] [address], [place], [address], [place] tel:[phone] [facility] Low back pain, unspecifiedSp ondylosis without myelopathy or radiculopathy , lumbar regionSpinal stenosis, lumbosacral region Jan- 3 Zippay Erendira. [address] [facility] [address], [place], [place], [address]. tel:[phone] Referring Provider: Kaylah Adame, [facility] [place], [address]. tel:[phone] [facility], [address] [facility] [address] [facility] [address], [place], [address], [place] tel:[phone] [facility] Spinal stenosis, lumbosacral regionSpondyl osis without myelopathy or radiculopathy , lumbar regionOther spondylosis with radiculopathy , lumbar regionLow back pain, unspecified 3 [facility] Erendira. [address], [place], [place], [id number]. tel:[phone] Referring Provider: Kaylah Adame, [facility] [place], [address]. tel:[phone] OFFICE/OUTPA TIENT VISIT EST [facility], [address] [facility] [address], [place], [address], [place] tel:[phone] [facility] Spondylosis without myelopathy or radiculopathy , lumbar regionOther spondylosis with radiculopathy , lumbar regionDDD (degenerative disc disease), lumbosacralSp inal stenosis, lumbosacral regionLow back pain, unspecifiedPr imary osteoarthriti s of left hip 3 [facility] Erendira. [address], [place], [place], [address]. tel:[phone] Referring Provider: Kaylah Adame, [place], [address]. tel:[phone] OFFICE/OUTPA TIENT VISIT EST [facility], [address] [facility] [address], [place], [address], [place] tel:[phone] [facility] Low back pain, unspecifiedSp inal stenosis, lumbosacral regionDDD (degenerative disc disease), lumbosacralOt her spondylosis with radiculopathy , lumbar regionSpondyl osis without myelopathy or radiculopathy , lumbar regionBody mass index [BMI] 29.0-29.9, adult 3 [facility] E[place]. [address], [place], [place], [address]. tel:[phone] Referring Provider: Kaylah Adame, [place], [address]. tel:[phone] [facility], [address] [facility] [address], [place], [address], [place] tel:[phone] [facility] Low back pain, unspecified Apr-0 5- 3 Zippay Erendira. [address], [place], [place], [address]. tel:[phone] OFFICE/OUTPA TIENT VISIT EST [facility], [address] [facility] [address] [address], [place], [address], [place] tel:[phone] [facility] Body mass index [BMI] 29.0-29.9, adultLow back pain, unspecifiedDD D (degenerative disc disease), lumbosacralSp inal stenosis, lumbosacral regionPrimary osteoarthriti s of left hip Mar- 6- 2 [facility] [place]. [address], [place], [place], [address]. tel:[phone] Referring Provider: Kaylah Adame, [place], [address]. tel:[phone] OFFICE/OUTPA TIENT VISIT EST [facility], [address] [facility] [address], [place], [address], [place] tel:[phone] [facility] Low back pain, unspecifiedOt her spondylosis with radiculopathy , lumbar regionPrimary osteoarthriti s of left hip Mar- 2- 2 Norma Sanjeev. [address], [place], [place], [address], [place]. tel:[phone] Referring Provider: Kaylah Adame, [place], [address]. tel:[phone] [facility], [address], [place], [address], [place] tel:[phone] [facility] Low back pain, unspecified Nov0 2 No Information Referring Provider: Sanjeev Green, [address], [place], [address]. tel:[phone] OFFICE/OUTPA TIENT VISIT EST [facility], [address] [facility] [address] [address], [place], [address], [place] tel:[phone] [facility] Low back pain, unspecifiedSp ondylosis without myelopathy or radiculopathy , lumbar region 0 2 Norma Pace. [address], [place], [place], [address], [place]. tel:[phone] Referring Provider: Kaylah Adame, [place], [address]. tel:[phone] OFFICE/OUTPA TIENT VISIT NEW [facility], [address], [place], [address], [place] tel:[phone] [facility] Low back pain, unspecifiedSp ondylosis without myelopathy or radiculopathy , lumbar regionBody mass index [BMI] 29.0-29.9, adult Sep-0 2 Norma Pace. [address], [place], [place], [address], [place]. tel:[phone] Referring Provider: Kaylah Adame, [place], [address]. tel:[phone] Family History Family Member Type Diagnosis Age At Onset No Information Payers Payer name Insurance type Covered alliance party ID Luceroa saran(s) [facility] Medicare Advantage PPO OT [id number] Social History Type Description Quantity Date Captured [...]
--- NOTE | ~2024-12-07 | CT_ITS ---
EXAMINATION: CTA chest PE protocol DATE: 12/07/2024 17:16 CDT INDICATION: Left lower extremity DVT. Right pleuritic chest pain TECHNIQUE: Computed tomographic angiography (CTA) of the chest was performed with intravenous contrast. The dose-length product was 446.04 mGy-cm. Maximum intensity projection 3D-reconstructions of the aorta and other arteries were constructed by the technologist on a separate workstation. COMPARISON: None. FINDINGS: There are pulmonary emboli in the right middle lobe pulmonary arteries, right lower lobe pulmonary arteries, right main pulmonary artery, lingular pulmonary arteries and left lower lobe pulmonary arteries. No enlarged mediastinal or hilar lymph nodes. Heart is mildly enlarged. There are coronary artery calcifications. Thoracic aorta is partially calcified but is not aneurysmal. Tracheobronchial tree is patent. Mild to moderate centrilobular emphysema in the upper lobes. Tiny right-sided pleural effusion. No pneumothorax. There is a 9 mm pulmonary nodular density in the left lower lobe. There is a 1.0 cm calcified granuloma in the left middle lobe. Small to moderate-sized patchy opacities in the left lower lobe. Small to moderate-sized patchy opacities in the middle lobe and right lower lobe. Bones appear osteopenic. Multilevel jjlb-eg-axjodqii degenerative change scattered throughout the visualized spine. Probable geode along the superior endplate of the L1 vertebral body. IMPRESSION: 1. There are pulmonary emboli in the right middle lobe pulmonary arteries, right lower lobe pulmonary arteries, right main pulmonary artery, lingular pulmonary arteries and left lower lobe pulmonary arteries. The finding were discussed withFannie, the physician's administrative assistant receptionist taking care of the patient, on 12/07/24 at 5:[address] Sreekanth Cole, read back occurred. 2. There is a 9 mm pulmonary nodular density in the left lower lobe. A PET/CT and/or biopsy is recommended. 3. Small to moderate-sized patchy opacities and consolidations in the mid and lower lungs. Recommend follow-up to resolution. 4. Mild to moderate centrilobular emphysema. 5. Tiny right-sided pleural effusion. Reviewed, dictated and finalized at location Q. IMPRESSION: 1. There are pulmonary emboli in the right middle lobe pulmonary arteries, righ t lower lobe pulmonary arteries, right main pulmonary artery, lingular pulmonar y arteries and left lower lobe pulmonary arteries. The finding were discussed w Fannie bentley, the physician's administrative assistant receptionist taking care of the patient, on 12/07/24 at 5:[address] Sreekanth Cole, read back occurred. 2. There is a 9 mm pulmonary nodular density in the left lower lobe. A PET/CT a nd/or biopsy is recommended. 3. Small to moderate-sized patchy opacities and consolidations in the mid and l ower lungs. Recommend follow-up to resolution. 4. Mild to moderate centrilobular emphysema. 5. Tiny right-sided pleural effusion.
--- OUTSIDE RECORDS SUMMARY | 2024-12-07 13:59 | XMS_ITS | Clinical Summary ---
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 Gender Identity Not on file Sexual Orientation Not on file Obstetrics History Last Filed Vital Signs Vital Sign Reading Time Taken Comments Blood Pressure 126/72 02/18/2022 12:40 PM SLAB MILLER OPERATOR Pulse 71 02/18/2022 12:50 PM SLAB MILLER OPERATOR Temperature 36.4 C (97.5 F) 02/18/2022 12:15 PM SLAB MILLER OPERATOR Respiratory Rate 15 02/18/2022 12:50 PM SLAB MILLER OPERATOR Oxygen Saturation 92% 02/18/2022 12:50 PM SLAB MILLER OPERATOR Inhaled Oxygen Concentration - - Weight 114.8 kg (253 lb) 03/02/2022 3:25 PM SLAB MILLER OPERATOR Height 190.5 cm (6' 3) 02/04/2022 11:10 [...] MEDICARE ADVANTAGE [employer]HC MEDICARE ADVANTAGE Care Teams Coil Placer Relationship Specialty Start Date End Date Kaylah Lou DO PCP - General Family Medicine 10/16/21
--- OUTSIDE RECORDS SUMMARY | 2024-12-07 13:59 | XMS_ITS | Clinical Summary ---
Author Organization [facility] Address [address] [place] [address] Care Team Providers Care Head Start Coordinator Name Role Phone Jaleel Kerr MD Primary Care Provider [phone] Kalen Vasquez MD Unavailable [phone] Source Comments [facility],non-owned Affiliates and Associated Physician Practices is amultiple site organization consisting of ambulatory clinics and hospital sitesin [place], [place], [place] and [place]. This disclosure is being madepursuant to the Care Everywhere program and may not contain all information available regarding this patient. 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
--- OUTSIDE RECORDS SUMMARY | 2024-12-07 13:59 | XMS_ITS | Patient Health Record ---
Author Organization [facility] [employer] ([address]) Address [address] [place] [address] Care Team Providers Care Director Of Communications Name Role Phone MonsepkKaylah Primary Care Provider Mery Rojas Unavailable [phone] Allergies Allergen (clinical drug ingredient) Drug/Non Drug [...] review and pick correct strength-formulati on from We[employer] options. If intended option is not shown, discontinue and re-order from Quick Search* Active EpiPen 2-Bentley 0.3 MG/0.3ML 0.3 mg intramuscularly once; Duration: 1 dose(s) Active Breo Ellipta 200 MCG-25 MCG/INH 1 PUFF(S) INHALED ONCE A DAY; Duration: 30 days *Please review and pick correct strength-formulati on from Webflow options. If intended option is not shown, [...] Vaccine Route Administration Date Status Comme nts Fluzone Quadrivalent Unknown 12/21/2016 Administered Influenza Unknown 12/22/2015 Administered NOC Influenza-Fluzone Unknown 04/17/2019 Administered NOC Pneumovax 23 Unknown 05/17/2017 Refused Allergy Immunotherapy Weekly Unknown 08/29/2015 Administered Portal Informati on Influenza Unknown 01/10/2015 Administered Portal Infor mation Social History Tobacco Use: Social History Observation [...] 04/18/2024 Encounters Encounter Location Date Provider Diagnosis [facility] [address] [address] 12/03/2024 Mery Collins Allergic rhinitis du e to pollen J30.1 ; Allergic rhinitis due to animal (cat) (dog) hair and dander J30.81 ; Other allergic rhinitis J30.89 and Other chronic allergic conjunctivitis H10.45 [facility] [address] [address] 11/08/2024 Mery Collins Allergic rhinitis du e to pollen J30.1 ; Allergic rhinitis due to animal (cat) (dog) hair and dander J30.81 ; Other allergic rhinitis J30.89 and Other chronic allergic conjunctivitis H10.45 [facility] [address] [place] [address] [employer] [address] [address] 11/01/2024 Mery Collins Allergic rhinitis du e to pollen J30.1 ; Allergic rhinitis due to animal (cat) (dog) hair and dander J30.81 ; Other allergic rhinitis J30.89 and Other chronic allergic conjunctivitis H10.45 [facility] [address] [place] [address] [employer] [address] [address] 10/24/2024 Merymadai Collins Allergic rhinitis du e to pollen J30.1 ; Allergic rhinitis due to animal (cat) (dog) hair and dander J30.81 ; Other allergic rhinitis J30.89 and Other chronic allergic conjunctivitis H10.45 [facility] [address] [place] [address] [employer] [address] [place] [address] 08/30/2024 Merymadai Collins Allergic rhinitis du e to pollen J30.1 ; Allergic rhinitis due to animal (cat) (dog) hair and dander J30.81 ; Other allergic rhinitis J30.89 and Other chronic allergic conjunctivitis H10.45 [facility] [address] [place] [address] [employer] [address] [address] 07/31/2024 Mery Collins Allergic rhinitis du e to pollen J30.1 ; Allergic rhinitis due to animal (cat) (dog) hair and dander J30.81 ; Other allergic rhinitis J30.89 and Other chronic allergic conjunctivitis H10.45 [facility] [address] [place] [address] [employer] [address] [address] 07/25/2024 Mery Collins Allergic rhinitis du e to pollen J30.1 ; Allergic rhinitis due to animal (cat) (dog) hair and dander J30.81 ; Other allergic rhinitis J30.89 and Other chronic allergic conjunctivitis H10.45 [facility] [address] [place], [place] [address] [address] [place] [address] 07/12/2024 Merymadai Collins Allergic rhinitis du e to pollen J30.1 ; Allergic rhinitis due to animal (cat) (dog) hair and dander J30.81 ; Other allergic rhinitis J30.89 and Other chronic allergic conjunctivitis H10.45 [facility] [address] [place], [place] [address] [address] [place] [address] 05/21/2024 Merymadai Collins Allergic rhinitis du e to pollen J30.1 ; Allergic rhinitis due to animal (cat) (dog) hair and dander J30.81 ; Other allergic rhinitis J30.89 and Other chronic allergic conjunctivitis H10.45 [facility] [address] [place] [address] [employer] [address] [place] [address] 03/21/2024 Merymadai Pereiram Allergic rhinitis du e to pollen J30.1 ; Allergic rhinitis due to animal (cat) (dog) hair and dander J30.81 ; Other allergic rhinitis J30.89 and Other chronic allergic conjunctivitis H10.45 [facility] [address] [place], [place] [address] [address] [place] [address] 02/15/2024 Merymadai Collins Allergic rhinitis du e to pollen J30.1 ; Allergic rhinitis due to animal (cat) (dog) hair and dander J30.81 ; Other allergic rhinitis J30.89 and Other chronic allergic conjunctivitis H10.45 [facility] [address] [place] [address] [employer] [address] [place] [address] 01/03/2024 Mery Collins Allergic rhinitis du e to pollen J30.1 ; Allergic rhinitis due to animal (cat) (dog) hair and dander J30.81 ; Other allergic rhinitis J30.89 and Other chronic allergic conjunctivitis H10.45 [facility] [address] [place], [place] [address] [address] [place] [address] 12/27/2023 Mery Karina Allergic rhinitis du e to pollen J30.1 ; Allergic rhinitis due to animal (cat) (dog) hair and dander J30.81 ; Other allergic rhinitis J30.89 and Other chronic allergic conjunctivitis H10.45 [facility] [address] [place], [place] [address] [address] [place] [address] 12/21/2023 Merymadai Pereiram Allergic rhinitis du e to pollen J30.1 ; Allergic rhinitis due to animal (cat) (dog) hair and dander J30.81 ; Other allergic rhinitis J30.89 and Other chronic allergic conjunctivitis H10.45 [facility] [address] [facility] [address] [place] [address] 04/18/2024 Mery Karina Allergic rhinitis du e to pollen J30.1 ; Moderate persistent asthma, uncomplicated J45.40 ; Allergic rhinitis due to animal (cat) (dog) hair and dander J30.81 ; Other allergic rhinitis J30.89 ; Snoring R06.83 and Other chronic allergic conjunctivitis H10.45 [facility] [address] [place] [address] 11/05/2024 Mery Collins Moderate persistent asthma, uncomplicated J45.40 Assessments Encounter Date Diagnosis (ICD Code) Assessment Notes Treatment Notes Treatment Clinical Notes Section Notes 07/12/2024 Allergic rhinitis due to pollen (ICD-10 - J30.1) 10/24/2024 Allergic rhinitis due to pollen (ICD-10 - J30.1) 11/01/2024 Allergic rhinitis due to pollen (ICD-10 - J30.1) 11/05/2024 Moderate persistent asthma, uncomplicated (ICD-10 - J45.40) 12/03/2024 Allergic rhinitis due to pollen (ICD-10 - J30.1) 11/08/2024 Allergic rhinitis due to pollen (ICD-10 - J30.1) 08/30/2024 Allergic rhinitis due to pollen (ICD-10 - J30.1) 07/31/2024 Allergic rhinitis due to pollen (ICD-10 [...] Breo when asthma is under good control. 03/21/2024 Allergic rhinitis due to pollen (ICD-10 - J30.1) 02/15/2024 Allergic rhinitis due to pollen (ICD-10 - J30.1) 01/03/2024 Allergic rhinitis due to pollen (ICD-10 - J30.1) 12/27/2023 Allergic rhinitis due to pollen (ICD-10 - J30.1) 12/21/2023 Allergic rhinitis due to pollen (ICD-10 - J30.1) 12/21/2023 Allergic rhinitis due to animal (cat) [...] allergen avoidance measures, and SCIT as above 05/21/2024 Allergic rhinitis due to animal (cat) (dog) hair and dander (ICD-10 - J30.81) 07/25/2024 Allergic rhinitis due to animal (cat) (dog) hair and dander (ICD-10 - J30.81) 07/31/2024 Allergic rhinitis due to animal (cat) (dog) hair and dander (ICD-10 - J30.81) 08/30/2024 Allergic rhinitis due to animal (cat) (dog) hair and dander (ICD-10 - J30.81) 11/08/2024 Allergic rhinitis due to animal (cat) (dog) hair and dander (ICD-10 - J30.81) 12/03/2024 Allergic rhinitis due to animal (cat) (dog) hair and dander (ICD-10 - J30.81) 11/01/2024 Allergic rhinitis due to animal (cat) (dog) hair and dander (ICD-10 - J30.81) 10/24/2024 Allergic rhinitis due to animal (cat) (dog) hair and dander (ICD-10 - J30.81) 07/12/2024 Allergic rhinitis due to animal (cat) (dog) hair and dander (ICD-10 - J30.81) 07/12/2024 Other allergic rhinitis (ICD-10 - J30.89) 10/24/2024 Other allergic rhinitis (ICD-10 - J30.89) 11/01/2024 Other allergic rhinitis (ICD-10 - J30.89) 12/03/2024 Other allergic rhinitis (ICD-10 - J30.89) 11/08/2024 Other allergic rhinitis (ICD-10 - J30.89) 08/30/2024 Other allergic rhinitis (ICD-10 - J30.89) 07/31/2024 Other allergic rhinitis (ICD-10 - J30.89) 07/25/2024 Other allergic rhinitis (ICD-10 - J30.89) 05/21/2024 Other allergic rhinitis (ICD-10 - J30.89) 04/18/2024 Other allergic rhinitis (ICD-10 - J30.89) Recommend medications, allergen avoidance measures, and SCIT as above 03/21/2024 Other allergic rhinitis (ICD-10 - J30.89) 02/15/2024 Other allergic rhinitis (ICD-10 - J30.89) 01/03/2024 Other allergic rhinitis (ICD-10 - J30.89) 12/27/2023 Other allergic rhinitis (ICD-10 - J30.89) 12/21/2023 Other allergic rhinitis (ICD-10 - J30.89) 04/18/2024 Snoring (ICD-10 - R06.83) Martin has a history of snoring at night which increases when nose is congested. He has seen much improvement while treating atopic disease. May consider sleep study if symptoms recur 03/21/2024 Other chronic allergic conjunctivitis (ICD-10 - H10.45) 12/21/2023 Other chronic allergic conjunctivitis (ICD-10 - [...] Other chronic allergic conjunctivitis (ICD-10 - H10.45) 11/01/2024 Other chronic allergic conjunctivitis (ICD-10 - [...] Insured Coverage Start Date Coverage End Date [employer] Medicare [address] [address] [place] [address] [id number] Martin Chapin Self - patient is the insured Medical (General) History Medical History History ICD Code Allergic rhinitis due to pollen Other allergic rhinitis Allergic rhinitis due to animal (cat) (d og) hair and dander Surgical History Surgery Date(Month/Year) right knee replacement 11/09/2009 Hospitalization History Reason Date(Month/Year) kidney stones 08/10/1999
[2024-12-07 14:09] VITALS: BP 116/68; PULSE 85; RESP 16; TEMP 36.6; O2SAT 98
--- OUTSIDE RECORDS SUMMARY | 2024-12-07 15:04 | XMS_ITS | Clinical Summary ---
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 Gender Identity Not on file Sexual Orientation Not on file Obstetrics History Last Filed Vital Signs Vital Sign Reading Time Taken Comments Blood Pressure 126/72 02/18/2022 12:40 PM CLIENT SUPPORT ASSOCIATE Pulse 71 02/18/2022 12:50 PM CLIENT SUPPORT ASSOCIATE Temperature 36.4 C (97.5 F) 02/18/2022 12:15 PM CLIENT SUPPORT ASSOCIATE Respiratory Rate 15 02/18/2022 12:50 PM CLIENT SUPPORT ASSOCIATE Oxygen Saturation 92% 02/18/2022 12:50 PM CLIENT SUPPORT ASSOCIATE Inhaled Oxygen Concentration - - Weight 114.8 kg (253 lb) 03/02/2022 3:25 PM CLIENT SUPPORT ASSOCIATE Height 190.5 cm (6' 3) 02/04/2022 11:10 [...] , 02/09/2018, 12/21/2016, Additional history exists Insurance [facility] Address: [place] [address] UHC MEDICARE ADVANTAGE [facility] Address: [place] [address] [employer]HC MEDICARE ADVANTAGE Care Teams Class B Driver Relationship Specialty Start Date End Date Kaylah Lou DO PCP - General Family Medicine 10/16/21
--- OUTSIDE RECORDS SUMMARY | 2024-12-07 15:04 | XMS_ITS | Clinical Summary ---
Author Organization [facility] Address [address] [place] [address] Care Team Providers Care Filer Metal Patterns Name Role Phone Jaleel Kerr MD Primary Care Provider [phone] Kalen Vasquez MD Unavailable [phone] Source Comments [facility],non-owned Affiliates and Associated Physician Practices is amultiple site organization consisting of ambulatory clinics and hospital sitesin [place], [place], [place] and [place]. This disclosure is being madepursuant to the Care Everywhere program and may not contain all information available regarding this patient. 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
--- NOTE | 2024-12-07 15:34 | ECG_ITS ---
Test Date: 2024-12-07 15:51:10 Measurements Intervals [place] Rate: 83 P: 56 FL: 224 QRS: -40 QRSD: 109 T: 58 QT: 333 QTc: 393 Interpretive Statements SINUS RHYTHM WITH FIRST DEGREE AV BLOCK LEFT AXIS DEVIATION INCOMPLETE RIGHT BUNDLE BRANCH BLOCK BORDERLINE R WAVE PROGRESSION, ANTERIOR LEADS BASELINE ARTIFACT- I, II, III, AVR, AVL AVF, V1-V2 BORDERLINE ECG Compared to ECG 06/20/2024 10:43:30 NO SIGNIFICANT CHANGE Electronically Signed On 12-07-2024 15:54:34 CDT by Ezekiel Kramer D.O.
[2024-12-07 16:06] LABS: Hematocrit 48.4 % (42.0-52.0); Hemoglobin 15.7 g/dL (14.0-18.0); Immature Granulocyte Percent A 0.8 % (0-0.5); Lymphocytes Absolute Auto 0.94 K/mm3 (0.9-3.2); Mean Corpuscular HGB Conc 32.4 g/dl (32-36); Mean Corpuscular Hemoglobin 28.3 pg (26-34); Mean Corpuscular Volume 87.2 fl (80-100); Nucleated Red Blood Cells Absolute Auto 0.000 K/mm3 (0.0-0.012); Nucleated Red Blood Cells Perc 0.0 % (0.0-0.2); Platelet Count Result 219 k/mm3 (150-375); Red Blood Count 5.55 M/mm3 (4.6-6.20); White Blood Count 7.8 K/mm3 (4.5-10.0)
[2024-12-07 16:26] LABS: INR 1.5; Prothrombin Time 18.3 Seconds (11.1-14.7)
[2024-12-07 16:27] LABS: Partial Thromboplastin Time 35.8 Seconds (22.3-36.8)
[2024-12-07 16:42] LABS: Alanine Aminotransferase 15 U/L (6-50); Albumin Level 4.1 g/dL (3.5-5.1); Alkaline Phosphatase 61 U/L (38-126); Anion Gap 8 mmol/L (4-12); Aspartate Amino Transferase 28 U/L (17-59); Bilirubin,Total 0.9 mg/dL (0.2-1.3); Blood Urea Nitrogen 11 mg/dL (9-20); Calcium 9.0 mg/dL (8.4-10.2); Carbon Dioxide 26 mmol/L (22-30); Chloride 100 mmol/L (98-107); Estimated CRCL calculation 77 ml/min; Estimated Glomerular Filt Rate > 60; Glucose 103 mg/dL (65-110); Potassium 4.8 mmol/L (3.4-5.0); Sodium 134 mmol/L (137-145); Total Protein 8.2 g/dL (6.3-8.2)
[2024-12-07 16:49] LABS: NT Pro B Type Natriuretic Pept 39 pg/mL (19.9-100); Troponin I < 0.012 ng/mL (0.000-0.034)
--- NOTE | 2024-12-07 17:43 | ED.GENADULT ---
HPI - General Adult General Chief complaint: Unspecified Stated complaint: right side pain Time Seen by Provider: 12/07/24 14:48 Source: patient Mode of arrival: ambulatory Limitations: no limitations History of Present Illness HPI narrative: Patient is a 74-year-old male who presents the ED with report of right-sided chest pain. Patient reports he was seen in the ED on 12/03 for swelling throughout his left lower extremity. He had a venous Doppler ultrasound performed which showed extensive DVT of left lower extremity. Patient was started on Eliquis, currently on 10 mg b.i.d. dosing. Has been taking this as prescribed. Reports of past couple of days, he has been having pain throughout his right-sided chest with deep inspiration. Denies feeling short of breath, just reports pain. Denies significant pain at rest, does report the pain is improved if he lays down flat. Denies fevers, cough. Related Data Home Medications ?Medication ?Instructions ?Recorded ?Confirmed ?Last Taken ?Type fexofenadine 60 mg tablet (Alis 60 mg PO Q12H 02/08/19 12/05/24 02/12/19 History Allergy) fluticasone furoate 200 See Rx Instructions .Route .COMPLEX 02/07/23 12/05/24 Unknown History mcg-vilanterol 25 mcg/dose inhalation powder (Breo Ellipta) semaglutide 0.25 mg or 0.5 mg (2 0.25 mg subcut WEEKLY 12/04/24 12/05/24 Unknown History mg/3 mL) subcutaneous pen injector (Ozempic) omeprazole 20 mg capsule,delayed 20 mg PO .prn PRN 12/05/24 12/05/24 Unknown History release smokies 1 mg BYMOUTH QHS 12/05/24 12/05/24 Unknown History Allergies Allergy/AdvReac Type Severity Reaction Status Date / Time dog dander Allergy Intermediate itchy eyes Verified 12/05/24 11:00 and scratchy throat grass pollen Allergy Intermediate itchy eyes Verified 12/05/24 11:00 and scratchy throat cat dander Allergy itchy eyes Verified 12/05/24 11:00 and scratchy throat pollen extracts Allergy itchy eyes Verified 12/05/24 11:00 and scratchy throat tree and shrub pollen Allergy itchy eyes Verified 12/05/24 11:00 and scratchy throat Review of Systems Review of Systems: All systems reviewed & are unremarkable except as noted in HPI. All systems reviewed & are unremarkable except as noted in HPI and below PMFSH Past Medical History Medical History Dvt femoral (deep venous thrombosis) (~11/2024) LLE Hepatitis C antibody test negative (02/14/19) History of hearing problem Kidney stone (~1999) Bronchitis Arthritis Hyperlipidemia Surgical History Surgical History History of colonoscopy (~2008) History of knee replacement (~2009) Family History Family History Sibling Diabetes mellitus Family history of pancreatic cancer Family history of malignant neoplasm of breast Mother Hypertension Family history of malignant neoplasm of ovary Father Family history of cardiovascular disease, Onset Age: 56 Acute myocardial infarction, Onset Age: 56 Social History Social History Smoking status: Former smoker Smoking end date: 04/11/99 Alcohol intake: never Substance use: current Substance use type: marijuana Other substance usage details: Gummies thc/cbd to help sleep Lack of Transportation: No Lack of Food: Never True Current Housing: I Have Housing Concerned About Future Housing: No Difficulty Paying Gas/Electric Bills: No Difficulty Paying for Meds: No Currently Unemployed: No Education: Trade/Vocational Certificate Difficulty w/ Childcare or Family Care: No Living arrangements: with family Additional living arrangements comments: Occupation/Education: retired Gender identity (if verbalized by the patient): Male Sexual Orientation (if Verbalized by the Patient): Straight or Heterosexual Agree to blood products: Yes Exam Narrative: GENERAL: Elderly but well appearing, well-nourished, non-toxic, in no acute distress. HEAD: Normocephalic, atraumatic. RESPIRATORY: Airway patent, respirations nonlabored. Clear to auscultation bilaterally, no rales, rhonchi, wheezing. No significant focal lung sounds. CARDIOVASCULAR: Regular rate and rhythm without murmurs, rubs, or gallops. MUSCULOSKELETAL: Moves all extremities. No gross deformities. No chest wall tenderness to palpation. SKIN: Warm, dry, normal color. NEURO: A&O X3. Speech clear. Cranial nerves II-XII grossly intact. Steady gait. No ataxic movements. PSYCHIATRIC: Appropriate mood and affect. Normal interaction. Course Vital Signs Vital signs: Vital Signs Temperature 97.9 F 12/07/24 14:09 Pulse Rate 85 12/07/24 14:09 Respiratory Rate 16 12/07/24 14:09 Blood Pressure 116/68 12/07/24 14:09 Pulse Oximetry 98 12/07/24 14:09 Oxygen Delivery Room Air 12/07/24 14:09 Temperature 97.9 F 12/07/24 14:09 Pulse Rate 85 12/07/24 14:09 Respiratory Rate 16 12/07/24 14:09 Blood Pressure 116/68 12/07/24 14:09 Pulse Oximetry 98 12/07/24 14:09 Oxygen Delivery Room Air 12/07/24 14:09 Medical Decision Making MDM Narrative Medical decision making narrative: Patient presented to ED with right-sided chest/pelvic pain with past couple of days. Recent diagnosis of left lower extremity DVT, currently on Eliquis. Has been taking this as prescribed. Reports compliance. Vital signs are stable upon arrival. Patient in no acute distress. No tachycardia or hypoxia. Laboratory studies without leukocytosis or anemia. No electrolyte derangement. Kidney function is stable. EKG with sinus rhythm, incomplete right bundle-branch block. No significant concerning ST changes. Troponin is undetectable. BNP is within normal range. CTA of chest was obtained and does show bilateral pulmonary emboli, worse throughout right lung. Discussed lab and imaging findings with patient. Discussed diagnosis of pulmonary emboli, but advised already currently on the correct treatment. He is completely hemodynamically stable and essentially asymptomatic aside from the pleuritic pain. He denies shortness of breath. No tachycardia or hypoxia. Vitals have remained stable throughout ED stay. Do not feel he requires IV heparin at this time. I did discuss discharge home to continue Eliquis versus admission overnight for observation. Utilized shared decision-making with patient and family. He feels comfortable going home. He does not wish to be admitted at this time. Advised close follow-up with PCP for continued evaluation. Advised patient to continue Eliquis as directed, emphasized not missing any doses of his Eliquis. Discussed very strict return precautions. Patient in agreement with plan and feels comfortable going home. Discharged in stable condition. Medical Records Medical records reviewed: Yes I reviewed the external patient's medical records. Vital Signs Vital Signs: Vital Signs Temperature 97.9 F 12/07/24 14:09 Pulse Rate 85 12/07/24 14:09 Respiratory Rate 16 12/07/24 14:09 Blood Pressure 116/68 12/07/24 14:09 Pulse Oximetry 98 12/07/24 14:09 Oxygen Delivery Room Air 12/07/24 14:09 Temperature 97.9 F 12/07/24 14:09 Pulse Rate 85 12/07/24 14:09 Respiratory Rate 16 12/07/24 14:09 Blood Pressure 116/68 12/07/24 14:09 Pulse Oximetry 98 12/07/24 14:09 Oxygen Delivery Room Air 12/07/24 14:09 Lab Data Lab results reviewed: Yes I reviewed the patient's lab results. 12/07/24 15:59 12/07/24 15:59 Labs: Lab Results 12/07/24 Range/Units 15:59 WBC 7.8 (4.5-10.0) K/mm3 RBC 5.55 (4.6-6.20) M/mm3 Hgb 15.7 (14.0-18.0) g/dL Hct 48.4 (42.0-52.0) % MCV 87.2 (80-100) fl MCH 28.3 (26-34) pg MCHC 32.4 (32-36) g/dl RDW 13.0 (11.5-14.5) % Plt Count 219 (150-375) k/mm3 MPV 8.6 (7.4-10.4) fl Immature Gran % (Auto) 0.8 H (0-0.5) % Neut % (Auto) 73.5 H (45.5-73.1) % Lymph % (Auto) 12.0 L (18.3-44.2) % [place] % (Auto) 11.6 H (2.6-8.5) % Eos % (Auto) 1.3 (0-4.4) % Baso % (Auto) 0.8 (0.2-1.2) % Lymph # (Auto) 0.94 (0.9-3.2) K/mm3 [place] # (Auto) 0.9 H (0.1-0.6) K/mm3 Eos # (Auto) 0.1 (0-0.3) K/mm3 Baso # (Auto) 0.1 (0.0-0.1) K/mm3 Abs Immat Gran (auto) 0.06 H (0.00-0.031) K/mm3 Absolute Neuts (auto) 5.8 (1.3-6.7) K/mm3 Absolute Nucleated RBC 0.000 (0.0-0.012) K/mm3 Nucleated RBC % 0.0 (0.0-0.2) % PT 18.3 H (11.1-14.7) Seconds INR 1.5 APTT 35.8 (22.3-36.8) Seconds Sodium 134 L (137-145) mmol/L Potassium 4.8 (3.4-5.0) mmol/L Chloride 100 (98-107) mmol/L Carbon Dioxide 26 (22-30) mmol/L Anion Gap 8 (4-12) mmol/L BUN 11 (9-20) mg/dL Creatinine 0.88 (0.7-1.3) mg/dL Estim Creat Clear Calc 77 ml/min Estimated GFR > 60 (59 - ) Glucose 103 (65-110) mg/dL Calcium 9.0 (8.4-10.2) mg/dL Total Bilirubin 0.9 (0.2-1.3) mg/dL AST 28 (17-59) U/L ALT 15 (6-50) U/L Alkaline Phosphatase 61 (38-126) U/L Troponin I < 0.012 (0.000-0.034) ng/mL NT-Pro-B Natriuret Pep 39 (19.9-100) pg/mL Total Protein 8.2 (6.3-8.2) g/dL Albumin 4.1 (3.5-5.1) g/dL Imaging Data Attestation: I personally reviewed and interpreted this imaging study as follows: Radiologist's impression: ITS Impressions Chest CTA 12/07/24 17:16 IMPRESSION: 1. There are pulmonary emboli in the right middle lobe pulmonary arteries, right lower lobe pulmonary arteries, right main pulmonary artery, lingular pulmonary arteries and left lower lobe pulmonary arteries. The finding were discussed withFannie, the physician's licensed nursing assistant taking care of the patient, on 12/07/24 at 5:[address] Sreekanth Cole, read back occurred. 2. There is a 9 mm pulmonary nodular density in the left lower lobe. A PET/CT and/or biopsy is recommended. 3. Small to moderate-sized patchy opacities and consolidations in the mid and lower lungs. Recommend follow-up to resolution. 4. Mild to moderate centrilobular emphysema. 5. Tiny right-sided pleural effusion. ECG Data EKG #1: Attestation: I personally reviewed and interpreted this ECG as follows: ECG completion date: 12/07/24 ECG completion time: 15:51 EKG Interpretation: normal rate (83), sinus rhythm, non-specific ST changes, RBBB (Incomplete) and other (First-degree AV block) Discharge Plan Discharge Clinical Impression: Bilateral pulmonary embolism, Acute deep vein thrombosis (DVT) of left lower extremity Patient Disposition: Home Condition: Stable Instructions: Antibiotic Form, Pulmonary Embolism (ED), Deep Vein Thrombosis (ED) Additional Instructions: Continue your Eliquis as prescribed. It is important you do not miss any doses. Follow-up closely with your primary care doctor for further evaluation. Return to the ED if you experience worsening or severe pain, difficulty breathing or feeling short of breath, coughing blood, unable to keep down food or drink, worsening pain or swelling in your legs, or any other symptoms of concern. Patient Language: Mexican Prescriptions: No Action omeprazole 20 mg capsule,delayed release(DR/EC) 20 mg PO .prn PRN smokies 1 mg BYMOUTH QHS Patient Comments: 10mg thc, 10mg cbn Breo Ellipta 200-25 mcg/dose blister with device See Rx Instructions .ROUTE .COMPLEX Dose Instruction: INHALE 1 PUFF BY MOUTH DAILY Rx Instructions: INHALE 1 PUFF BY MOUTH DAILY PRN fexofenadine [Alis Allergy] 60 mg Tablet 60 mg PO Q12H pravastatin 10 mg tablet See Rx Instructions .ROUTE .COMPLEX Qty: 90 1RF Dose Instruction: TAKE 1 TABLET BY MOUTH AT BEDTIME Rx Instructions: TAKE 1 TABLET BY MOUTH AT BEDTIME Ozempic 0.25 mg or 0.5 mg (2 mg/3 mL) pen injector 0.25 mg subcut WEEKLY Rx Instructions: for 4 weeks Eliquis 5 mg tablet 5 mg PO BID Qty: 180 1RF Follow-up/Referrals: Kaylah Lou DO [Primary Care Provider, [facility]] Time of Disposition: 18:33
== END 2024-12-07 18:55 | disposition home or self-care (01) ==
PROVIDERS: Emergency Provider Physician Assistant; PCP Family Medicine
DX: I26.99 Other pulmonary embolism without acute cor pulmonale (principal); I82.412 Acute embolism and thrombosis of left femoral vein; E78.5 Hyperlipidemia, unspecified; M19.90 Unspecified osteoarthritis, unspecified site; Z96.659 Presence of unspecified artificial knee joint; Z87.891 Personal history of nicotine dependence; Z87.442 Personal history of urinary calculi; Z79.01 Long term (current) use of anticoagulants; Z79.85 Long-term (current) use of injectable non-insulin antidiabetic drugs; Z79.899 Other long term (current) drug therapy; R91.1 Solitary pulmonary nodule; J43.2 Centrilobular emphysema; R91.8 Other nonspecific abnormal finding of lung field
CPT/HCPCS: 36415; 71275; 80053; 83880; 84484; 85025; 85610; 85730; 93005; 99284; Q9967

== ENCOUNTER 2025-01-02 13:21 | Outpatient (CLI) | payer MEDICARE, SELFPAY ==
--- OUTSIDE RECORDS SUMMARY | 2024-10-03 12:30 | XMS_ITS ---
Author Organization [employer] [place] ([address]) Address [address] [place] [address] Care Team Providers Care Box Printer Name Role Phone MonsechloeKaylah monson Primary Care Provider Mery Rojas Unavailable [phone] REASON FOR VISIT SCIT - Traditional Schedule [...] review and pick correct strength-formulati on from [employer]ways options. If intended option is not shown, [...] Male Encounters Encounter Location Date Provider Diagnosis [facility] [address] [place] [address] 10/03/2024 Mery Collins Allergic rhinitis du e [...] Details Follow Up: 4 Weeks, Reason: Provider Name:Mery mcgovern, 01/03/2025 11:00:00 AM, [address], Suite [facility], [place], [address], Progress Notes * Martin CHAPIN ADOB:1950 (74 yo M)Acc No.[id number]:10/03/2024 SCIT-Aeroallergen Patient: Martin AHUMADA Provider: Emily Collins MD :1950 A ge:74 Y S ex:Male Date:10/03/2024 Address:[address] [place] [address] [address], [place], [id number] Pcp:Kaylah Lou Subjective: * Chief Complaints: * [...] *Please review and pick correct strength-formulation from Shapeways options. If intended option is not shown, discontinue and re-order from Quick Search*, Taking Alis Allergy 180 MG Tablet 1 tab(s) orally once a day , Taking EpiPen 2-Bentley 0.3 MG/0.3ML Solution Auto-injector 0.3 mg intramuscularly once , Taking Nasacort Allergy 24HR , Notes to Pharmacist: *Please review and pick correct strength-formulation from Shapeways options. If intended option is not shown, [...] Information: * Visit Code: * Procedure Codes: 65559 IMMUNOTHERAPY INJECTIONS. * Electronic signature of Kelly Collins MD on 01/02/2025 at 01:30 PM CDT Sign off status: Pending * Provider: Emily Collins MD Date: 0 10/03/2024 Generated for Jr villegas/Adan/Maeve on: 0 01/02/2025 01:30 PM CDT History and Physical Notes * HPI [...]
--- NOTE | ~2025-01-02 | CT_ITS ---
EXAMINATION: CT chest high resolution wo nv DATE: 01/02/2025 13:50 INDICATION: Pulmonary nodule. TECHNIQUE: Computed tomography (CT) of the chest was performed without intravenous contrast. The dose-length product was 217.73 mGy-cm. Automated exposure control and iterative reconstruction technique were employed. COMPARISON: CT dated 12/07/2024 FINDINGS: Heart size normal. Trace pericardial effusion. No significant pleural effusion. No thoracic lymphadenopathy. There is atherosclerosis of the aorta and coronary arteries. The upper abdomen is unremarkable. There is emphysema. There is a 2 x 1.6 x 1.5 cm pleural-based left lower lobe mass which has developed since prior examination. There is a right middle lobe nodule measuring 10 mm, slightly decreased in size compared with prior study. No endobronchial lesion. Calcified granuloma in the lingula. There is dependent atelectasis. No endobronchial lesions. No pneumothorax. Mild thoracic spondylosis. IMPRESSION: 1. New 2 cm left lower lobe pleural-based mass, suspicious for malignancy. Recommend correlation with pet/CT scan or percutaneous biopsy. 2: Stable right middle lobe nodule measuring 10 mm. Continued follow-up surveillance CT in 12 months recommended for this abnormality. Reviewed, dictated and finalized at location O. IMPRESSION: 1. New 2 cm left lower lobe pleural-based mass, suspicious for malignancy. Eulalio mmend correlation with pet/CT scan or percutaneous biopsy. 2: Stable right middle lobe nodule measuring 10 mm. Continued follow-up surveil luis CT in 12 months recommended for this abnormality.
--- OUTSIDE RECORDS SUMMARY | 2025-01-02 13:31 | XMS_ITS | Clinical Summary ---
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 Gender Identity Not on file Sexual Orientation Not on file Obstetrics History Last Filed Vital Signs Vital Sign Reading Time Taken Comments Blood Pressure 126/72 02/18/2022 12:40 PM FERMENTATION MANAGER Pulse 71 02/18/2022 12:50 PM FERMENTATION MANAGER Temperature 36.4 C (97.5 F) 02/18/2022 12:15 PM FERMENTATION MANAGER Respiratory Rate 15 02/18/2022 12:50 PM FERMENTATION MANAGER Oxygen Saturation 92% 02/18/2022 12:50 PM FERMENTATION MANAGER Inhaled Oxygen Concentration - - Weight 114.8 kg (253 lb) 03/02/2022 3:25 PM FERMENTATION MANAGER Height 190.5 cm (6' 3) 02/04/2022 11:10 [...] Assessment 02/18/2023 02/18/2022 Covid-19 Vaccine (3 - 5-2 6 season) 2024 11/20/2021, 12/08/2020 Influenza Vaccine (#1) 2024 , 02/09/2018, 12/21/2016, Additional history exists Insurance [facility] Address: [place] [address] [employer] MEDICARE ADVANTAGE [facility] Address: [place] [address] [employer] MEDICARE ADVANTAGE Care Teams Industrial Hygenist Relationship Specialty Start Date End Date Kaylah Lou DO PCP - General Family Medicine 10/16/21
--- OUTSIDE RECORDS SUMMARY | 2025-01-02 13:31 | XMS_ITS | Patient Health Record ---
Author Organization [facility] [employer] [place] ([address]) Address [address] [place] [address] Care Team Providers Care Insurance Administrator Name Role Phone MonsepkKaylah Primary Care Provider Mery Rojas Unavailable [phone] Allergies Allergen (clinical drug ingredient) Drug/Non Drug [...] review and pick correct strength-formulati on from [employer] options. If intended option is not shown, discontinue and re-order from Quick Search* Active EpiPen 2-Bentley 0.3 MG/0.3ML 0.3 mg intramuscularly once; Duration: 1 dose(s) Active Breo Ellipta 200 MCG-25 MCG/INH 1 PUFF(S) INHALED ONCE A DAY; Duration: 30 days *Please review and pick correct strength-formulati on from [employer] options. If intended option is not shown, [...] 04/18/2024 Encounters Encounter Location Date Provider Diagnosis [facility] [address] [address] 12/03/2024 Mery Collins Allergic rhinitis du e to pollen J30.1 ; Allergic rhinitis due to animal (cat) (dog) hair and dander J30.81 ; Other allergic rhinitis J30.89 and Other chronic allergic conjunctivitis H10.45 [facility] [address] [address] 11/08/2024 Mery Collins Allergic rhinitis du e to pollen J30.1 ; Allergic rhinitis due to animal (cat) (dog) hair and dander J30.81 ; Other allergic rhinitis J30.89 and Other chronic allergic conjunctivitis H10.45 [facility] [address] [place] [address] [employer] [address] [address] 11/01/2024 Mery Collins Allergic rhinitis du e to pollen J30.1 ; Allergic rhinitis due to animal (cat) (dog) hair and dander J30.81 ; Other allergic rhinitis J30.89 and Other chronic allergic conjunctivitis H10.45 [facility] [address] [place] [address] [employer] [address] [address] 10/24/2024 Merymadai Collins Allergic rhinitis du e to pollen J30.1 ; Allergic rhinitis due to animal (cat) (dog) hair and dander J30.81 ; Other allergic rhinitis J30.89 and Other chronic allergic conjunctivitis H10.45 [facility] [address] [place] [address] [employer] [address] [place] [phone] 08/30/2024 Merymadai Collins Allergic rhinitis du e to pollen J30.1 ; Allergic rhinitis due to animal (cat) (dog) hair and dander J30.81 ; Other allergic rhinitis J30.89 and Other chronic allergic conjunctivitis H10.45 [facility] [address] [place] [address] [employer] [address] [address] 07/31/2024 Mery Collins Allergic rhinitis du e to pollen J30.1 ; Allergic rhinitis due to animal (cat) (dog) hair and dander J30.81 ; Other allergic rhinitis J30.89 and Other chronic allergic conjunctivitis H10.45 [facility] [address] [place] [address] [employer] [address] [address] 07/25/2024 Mery Collins Allergic rhinitis du e to pollen J30.1 ; Allergic rhinitis due to animal (cat) (dog) hair and dander J30.81 ; Other allergic rhinitis J30.89 and Other chronic allergic conjunctivitis H10.45 [facility] [address] [place], [place] [address] [address] [place] [phone] 07/12/2024 Merymadai Collins Allergic rhinitis du e to pollen J30.1 ; Allergic rhinitis due to animal (cat) (dog) hair and dander J30.81 ; Other allergic rhinitis J30.89 and Other chronic allergic conjunctivitis H10.45 [facility] [address] [place] [phone] 05/21/2024 Mery Collins Allergic rhinitis du e to pollen J30.1 ; Allergic rhinitis due to animal (cat) (dog) hair and dander J30.81 ; Other allergic rhinitis J30.89 and Other chronic allergic conjunctivitis H10.45 [facility] [address] [place] [address] 03/21/2024 Merymadai Collins Allergic rhinitis du e to pollen J30.1 ; Allergic rhinitis due to animal (cat) (dog) hair and dander J30.81 ; Other allergic rhinitis J30.89 and Other chronic allergic conjunctivitis H10.45 [facility] [address] [place] [phone] 02/15/2024 Mery Collins Allergic rhinitis du e to pollen J30.1 ; Allergic rhinitis due to animal (cat) (dog) hair and dander J30.81 ; Other allergic rhinitis J30.89 and Other chronic allergic conjunctivitis H10.45 [facility] [address] [place] [phone] 01/03/2024 Mery Collins Allergic rhinitis du e to pollen J30.1 ; Allergic rhinitis due to animal (cat) (dog) hair and dander J30.81 ; Other allergic rhinitis J30.89 and Other chronic allergic conjunctivitis H10.45 [facility] [address] [place] [phone] 04/18/2024 Mery Collins Allergic rhinitis du e to pollen J30.1 ; Moderate persistent asthma, uncomplicated J45.40 ; Allergic rhinitis due to animal (cat) (dog) hair and dander J30.81 ; Other allergic rhinitis J30.89 ; Snoring R06.83 and Other chronic allergic conjunctivitis H10.[address] [address] 11/05/2024 Mery Collins Moderate persistent asthma, uncomplicated J45.40 Assessments Encounter Date Diagnosis (ICD Code) Assessment Notes Treatment Notes Treatment Clinical Notes Section Notes 01/03/2024 Allergic rhinitis due to pollen (ICD-10 [...] Breo when asthma is under good control. 05/21/2024 Allergic rhinitis due to pollen (ICD-10 [...] Moderate persistent asthma, uncomplicated (ICD-10 - J45.40) 11/08/2024 Allergic rhinitis due to pollen (ICD-10 [...] avoidance measures, and SCIT as above 03/21/2024 Allergic rhinitis due to animal (cat) (dog) hair and dander (ICD-10 - J30.81) 02/15/2024 Allergic rhinitis due to animal (cat) (dog) hair and dander (ICD-10 - J30.81) 01/03/2024 Allergic rhinitis due to animal (cat) (dog) hair and dander (ICD-10 - J30.81) 01/03/2024 Other allergic rhinitis (ICD-10 - J30.89) 02/15/2024 Other allergic rhinitis (ICD-10 - J30.89) 03/21/2024 Other allergic rhinitis (ICD-10 - J30.89) 04/18/2024 Other allergic rhinitis (ICD-10 - J30.89) Recommend medications, allergen avoidance measures, and SCIT as above 05/21/2024 Other allergic rhinitis (ICD-10 - J30.89) 07/12/2024 Other allergic rhinitis (ICD-10 - J30.89) 07/25/2024 Other allergic rhinitis (ICD-10 - J30.89) 07/31/2024 Other allergic rhinitis (ICD-10 - J30.89) 08/30/2024 Other allergic rhinitis (ICD-10 - J30.89) 10/24/2024 Other allergic rhinitis (ICD-10 - J30.89) 11/01/2024 Other allergic rhinitis (ICD-10 - J30.89) 11/08/2024 [...] May consider sleep study if symptoms recur 05/21/2024 Other chronic allergic conjunctivitis (ICD-10 - [...] adjunctive measure. 04/18/2024 Other Plan Of Treatment Next Appt Details Provider Name:Mery mcgovern, 01/03/2025 11:00:00 AM, [address] [facility], [address], [place], [address], Insurance Providers Payer Name Payer Address Payer Phone Subscriber Number Group Number Insured Name Patient Relationship to Insured Coverage Start Date Coverage End Date [employer] Medicare [address] [address] [place] [address] [id number] Martin Chapin Self - patient is the insured Medical (General) History Medical History History ICD Code Allergic rhinitis due to pollen Other allergic rhinitis Allergic rhinitis due to animal (cat) (d og) hair and dander Surgical History Surgery Date(Month/Year) right knee replacement 11/09/2009 Hospitalization History Reason Date(Month/Year) kidney stones 08/10/1999
--- OUTSIDE RECORDS SUMMARY | 2025-01-02 13:31 | XMS_ITS | Clinical Summary ---
Author Organization [facility] [employer] Address [address] [place] [address] Care Team Providers Care Canceling And Cutting Control Clerk Name Role Phone Jaleel Kerr MD Primary Care Provider [phone] Kalen Vasquez MD Unavailable [phone] Source Comments [facility] [employer],non-owned Affiliates and Associated Physician Practices is amultiple site organization consisting of ambulatory clinics and hospital sitesin [place], [place], [place] and [place]. This disclosure is being madepursuant to the Care Everywhere program and may not contain all information available regarding this patient. Last updated 17.[facility] [employer] Allergies No known active allergies Medications * [...] on file Legal Sex Male 11:56 AM BREAD PANNER Gender Identity Not on file Sexual Orientation [...] (1 of 2) 2000 AAA SCREENING 2015 DEPRESSION SCREENING 04/11/2024 COVID-19 VACCINE (1 - 2023-2 5 season) 2024 INFLUENZA VACCINE (#1) 2024 Respiratory Syncytial Virus [...] complete this topic Insurance MEDICARE COMMERCIAL GENERIC [facility] MANAGED MEDICARE ADV Advance Directives Documents on File Type Date Recorded Patient Field Organizer Expl anation Adv Directive/Living Will/POA 10/24/2009 2:41 PM * Full Code (Latest Code Status on File) Date Activated Date Inactivated Comments 10/20/2009 11:47 AM 10/24/2009 1:08 AM Care Teams Canceling And Cutting Control Clerk Relationship Specialty Start Date End Date Jaleel Kerr MD [address] [place] [id number] PCP - General Family Medicine 09/05/14 [place] [id number] [facility] [address] [place] [address] Orthopedic Surgery 10/08/14
== END 2025-01-02 13:22 | disposition home or self-care (01) ==
LOC: CHSIMG 13:22
PROVIDERS: PCP Family Medicine; Visit Provider Family Medicine
DX: R91.1 Solitary pulmonary nodule (principal); R91.8 Other nonspecific abnormal finding of lung field
CPT/HCPCS: 71250

== ENCOUNTER 2025-03-19 10:25 | Outpatient (CLI) | payer MEDICARE, SELFPAY ==
--- NOTE | ~2025-03-19 | US_ITS ---
EXAMINATION: US venous doppler [facility] DATE: 03/19/2025 11:12 INDICATION: Possible DVT TECHNIQUE: Grayscale ultrasound images without and with compression and Doppler ultrasound images of the left lower extremity veins were obtained. COMPARISON: None. FINDINGS: The popliteal vein is partially compressible. The visualized portions of left common femoral vein, profunda (deep) femoral vein, femoral vein, peroneal veins, posterior tibial veins, and greater saphenous vein outflow are patent. IMPRESSION: 1. Probable DVT in the left popliteal vein of uncertain chronicity. Correlate with clinical presentation and exam. Reviewed, dictated and finalized at location A. KNITTER
== END 2025-03-19 10:26 | disposition home or self-care (01) ==
PROVIDERS: PCP Family Medicine; Visit Provider Internal Medicine Hematology & Oncology
DX: I82.4Z9 Acute embolism and thrombosis of unspecified deep veins of unspecified distal lower extremity (principal)
CPT/HCPCS: 93971

== ENCOUNTER 2025-04-02 11:55 | Outpatient (CLI) | payer MEDICARE, SELFPAY ==
--- OUTSIDE RECORDS SUMMARY | 2024-10-03 11:30 | XMS_ITS ---
Author Organization [employer] [place] ([address]) Address [address] [place] [address] Care Team Providers Care Datapower Developer Name Role Phone MonsechloeKaylah monson Primary Care Provider Mery Rojas Unavailable [phone] REASON FOR VISIT SCIT - Traditional Schedule Allergy immunotherapy Medications Medication SIG (Take, Route, Frequency, Duration) Notes Start Date End Date Status SIT (TRADITIONAL) variable per schedule SC per schedule; Duration: to be determined Active ALIS 24 HOUR ALLERGY 180 mg 1 tab(s) orally once a day Active Pravastatin Sodium 10 MG TAKE 1 TABLET BY MOUTH AT BEDTIME Oral; Duration: 90 Days Active Nasacort Allergy 24HR *Please review and pick correct strength-formulati on from XDC options. If intended option is not shown, discontinue and re-order from Quick Search* Active EpiPen 2-Bentley 0.3 MG/0.3ML 0.3 mg intramuscularly once; Duration: 1 dose(s) Active PROAIR HFA 90 mcg/inh 2 puff(s) inhaled every 6 hours, PRN; Duration: 30 day(s) Active PAZEO 0.7% 1 gtt in each affect ed eye once a day; Duration: 30 day(s) Active Alis Allergy 180 MG 1 tab(s) orally once a day Active Breo Ellipta 200 MCG-25 MCG/INH 1 PUFF(S) INHALED ONCE A DAY; Duration: 30 days *Please review and pick correct strength-formulati on from Medispan options. If intended option is not shown, discontinue and re-order from Quick Search* Active EPIPEN 2-BENTLEY 0.3 mg 0.3 mg intramuscularly once; Duration: 1 dose(s) Active RHINOCORT AQUA 32 mcg/inh 2 spray(s) intranasally once a day; Duration: 30 day(s) Active NASAL WASHES N/A as directed intranasally as needed; Duration: 30 Active Social History Sex Assigned At : Social History Observation Description Sex Assigned At Male Encounters Encounter Location Date Provider Diagnosis [facility] [address] [place] [address] 10/03/2024 Mery Collins Allergic rhinitis du e to pollen J30.1 ; Allergic rhinitis due to animal (cat) (dog) hair and dander J30.81 ; Other allergic rhinitis J30.89 and Other chronic allergic conjunctivitis H10.45 Assessments Encounter Date Diagnosis (ICD Code) Assessment Notes Treatment Notes Treatment Clinical Notes Section Notes 10/03/2024 Allergic rhinitis due to pollen (ICD-10 - J30.1) 10/03/2024 Allergic rhinitis due to animal (cat) (dog) hair and dander (ICD-10 - J30.81) 10/03/2024 Other allergic rhinitis (ICD-10 - J30.89) 10/03/2024 Other chronic allergic conjunctivitis (ICD-10 - H10.45) Plan Of Treatment Medication Medication Name Sig Start Date Stop Date Notes SIT (TRADITIONAL) variable per schedule SC per schedule; Duration: to be determined Next Appt Details Follow Up: 4 Weeks, Reason: Provider Name:Tk Ballesteros , 04/08/2025 09:50:00 AM, [address], [address], [place], [address], Provider Name:Arielle cisneros, 05/06/2025 11:00:00 AM, [address], [place], [address], Progress Notes * Martin CHAPIN ADOB:1950 (75 yo M)Acc No.[id number]:10/03/2024 SCIT-Aeroallergen Patient: Martin AHUMADA Provider: Emily Collins MD :1950 A ge:74 Y S ex:Male Date:10/03/2024 Address:[address], [place], [id number] Pcp:Kaylah Lou Subjective: * Chief Complaints: * 1 . SCIT - Traditional Schedule Allergy immunotherapy . * HPI: * Introduction: The patient is [...] is on file. * Medical History: * Medications: T aking ALIS 24 HOUR ALLERGY 180 mg tablet 1 tab(s) orally once a day , Taking RHINOCORT AQUA 32 mcg/inh spray 2 spray(s) intranasally once a day , Taking NASAL WASHES N/A 1 quart of sterilized tap water or distilled water, 1 tsp NaCl, 1 pinch of baking soda as directed intranasally as needed , Taking EPIPEN 2-BENTLEY 0.3 mg kit 0.3 mg intramuscularly once , Taking PAZEO 0.7% solution 1 gtt in each affected eye once a day , Taking PROAIR HFA 90 mcg/inh aerosol 2 puff(s) inhaled every 6 hours, PRN , Taking Breo Ellipta 200 MCG-25 MCG/INH POWDER 1 PUFF(S) INHALED ONCE A DAY , Notes to Pharmacist: *Please review and pick correct strength-formulation from Medispan options. If intended option is not shown, discontinue and re-order from Quick Search*, Taking Alis Allergy 180 MG Tablet 1 tab(s) orally once a day , Taking EpiPen 2-Bentley 0.3 MG/0.3ML Solution Auto-injector 0.3 mg intramuscularly once , Taking Nasacort Allergy 24HR , Notes to Pharmacist: *Please review and pick correct strength-formulation from [facility] options. If intended option is not shown, discontinue and re-order from Quick Search*, Taking Pravastatin Sodium 10 MG Tablet TAKE 1 TABLET BY MOUTH AT BEDTIME Oral , Taking SIT (TRADITIONAL) variable see record per [...] Information: * Visit Code: * Procedure Codes: 54595 IMMUNOTHERAPY INJECTIONS. * Electronic signature of Kelly Collins MD on 04/02/2025 at 12:06 PM BOAT WORKER Sign off status: Pending * Provider: Emily Collins MD Date: 0 10/03/2024 Generated for Jr villegas/Adan/Maeve on: 1 06/03/2024 12:06 PM BOAT WORKER History and Physical Notes * HPI (History [...]
--- NOTE | ~2025-04-02 | PE_ITS ---
EXAMINATION: PET skull to mid thigh DATE: 04/02/2025 14:56 INDICATION: Lung cancer TECHNIQUE: Blood glucose level was 94 mg/dL. 9.688 mCi of 18-fluorodeoxyglucose (18-FDG) was administered i.v. Low dose computed tomography (CT) images were acquired from the base of the brain to the proximal thighs for attenuation correction and anatomic localization. Positron emission tomography (PET) images were acquired in the same distribution beginning 62 minutes after injection. Images including fused PET/CT images were reconstructed in axial, coronal, and sagittal planes. Automated exposure control technique was employed. The dose- length product was 1253.08mGy-cm. COMPARISON: Chest CT dated 01/02/2025 FINDINGS: Head/neck: There is symmetric increased activity in the oral cavity, palatine tonsils, laryngeal muscles and ocular muscles without CT correlate, likely physiologic. There are couple FDG avid nodules in the left parotid gland which could represent intraparotid lymph nodes or necrotic neoplasms the larger measuring 8 x 4 mm with maximal SUV of 11.8 and the smaller measuring 5 mm with maximal SUV of 16.5. No pathologically enlarged cervical lymphadenopathy. Chest: Moderate emphysema. The previously seen nodular opacity at the superior segment of the right lower lobe has resolved. Calcified nodule at the lingula consistent with old granulomatous disease. Mild dependent basilar atelectasis in the bilateral lower lobes. No FDG uptake associated with a chronic linear band of atelectasis/scarring in the right middle lobe. No pleural effusion. Heart size is normal. Atherosclerotic coronary artery calcific lesion. No pericardial effusion. Thoracic aorta is normal in caliber. No pathologically enlarged or FDG avid thoracic lymphadenopathy. There is mild likely reactive synovial activity at the left glenohumeral and acromioclavicular joints. Abdomen/pelvis/proximal thighs: Physiologic renal accumulation and excretion of FDG activity in the kidneys, bladder and along portions of ureters. Normal degree and heterogenous pattern of increased uptake throughout the liver without radiologic correlate or dominant FDG avid lesion. The gallbladder, pancreas, spleen and bilateral adrenal glands are normal. Mild uptake scattered throughout the bowels without radiologic correlate, also likely physiologic. No other abnormal foci of increased FDG uptake or pathologically enlarged lymphadenopathy in the abdomen, pelvis or proximal thighs. Musculoskeletal: Moderate osteoarthritis at the bilateral hips with subarticular cystlike changes along the bilateral acetabula and diffuse likely reactive synovial uptake at both hips. Large Schmorl's nodes along the superior endplates of L1 and L3. No other suspicious lytic, blastic or abnormally FDG avid bone lesions. Small focus of likely extravasated soft tissue activity at the right antecubital fossa. IMPRESSION: 1. Interval resolution of the previous noted nodular opacity of concern at the superior segment of the right lower lobe which was likely infectious/inflammatory in etiology. No FDG avid pulmonary nodules or thoracic lymphadenopathy to suggest malignancy. 2. Increased FDG uptake associated with a couple subcentimeter nodules at the left parotid which could represent lymph nodes either reactive, metastatic or lymphoma or parotid neoplasm either benign or malignant. Would consider ultrasound-guided fine-needle aspiration of the larger more caudal nodule. Reviewed, dictated and finalized at location [facility] IMPRESSION: 1. Interval resolution of the previous noted nodular opacity of concern at the superior segment of the right lower lobe which was likely infectious/inflammato ry in etiology. No FDG avid pulmonary nodules or thoracic lymphadenopathy to atkins ggest malignancy. 2. Increased FDG uptake associated with a couple subcentimeter nodules at the l eft parotid which could represent lymph nodes either reactive, metastatic or ly mphoma or parotid neoplasm either benign or malignant. Would consider ultrasoun d-guided fine-needle aspiration of the larger more caudal nodule.
--- OUTSIDE RECORDS SUMMARY | 2025-04-02 12:06 | XMS_ITS | Clinical Summary ---
Author Organization [facility] Address [address] [place] [address] Care Team Providers Care Wood Form Builder Name Role Phone Kaylah Lou DO Primary Care Provider [phone] Allergies No known active allergies Medications pravastatin [...] on file Legal Sex Male 12:13 AM BELT MACHINE OPERATOR Gender Identity Not on file Sexual Orientation Not on file Last Filed Vital Signs Vital Sign Reading Time Taken Comments Blood Pressure 126/72 02/18/2022 12:40 PM BELT MACHINE OPERATOR Pulse 71 02/18/2022 12:50 PM BELT MACHINE OPERATOR Temperature 36.4 C (97.5 F) 02/18/2022 12:15 PM BELT MACHINE OPERATOR Respiratory Rate 15 02/18/2022 12:50 PM BELT MACHINE OPERATOR Oxygen Saturation 92% 02/18/2022 12:50 PM BELT MACHINE OPERATOR Inhaled Oxygen Concentration - - Weight 114.8 kg (253 lb) 03/02/2022 3:25 PM BELT MACHINE OPERATOR Height 190.5 cm (6' 3) 02/04/2022 11:10 AM CDT Body Mass Index 31.62 02/04/2022 11:10 AM CDT Plan of Treatment Not on file Insurance [facility] MEDICARE ADVANTAGE [id number] [facility] [facility] [place] [id number] [facility] MEDICARE ADVANTAGE Care Teams Wood Form Builder Relationship Specialty Start Date End Date Kaylah Lou DO PCP - General Family Medicine 10/16/21
--- OUTSIDE RECORDS SUMMARY | 2025-04-02 12:06 | XMS_ITS | Clinical Summary ---
Author Organization [facility] Address [address] [place] [address] Phone Care Team Providers Care Repairer Recreational Vehicle Name Role Phone Unavailable Primary Care Provider Unavailabl e Allergies No known active allergies Medications Eliquis 5 mg tablet Take 1 Tablet by mouth 2 times daily. Active fexofenadine (APOLLO) 180 mg tablet Take 180 mg by mouth daily at bedtime. Active pravastatin (PRAVACHOL) 10 mg tablet Take 10 mg by mouth daily at bedtime. Active fluticasone furoate-vilante roL (BREO ELLIPTA) 100-25 mcg/dose Disk with Device Take 1 Puff by inhalation daily at bedtime. Active semaglutide (Ozempic) 1 mg/dose (4 mg/3 mL) Pen Injector Inject by subcutaneous injection. Active Active Problems Problem Noted Date Diagnosed Date High cholesterol 03/18/2025 DVT (deep venous thrombosis) 03/18/2025 Osteoarthrosis, localized, primary, involving lo wer leg 10/08/2014 Overview (03/18/2025): 2015 IMO Updt Encounters Date Type Department Care Team Description 03/29/2025 7:41 AM RADIOLOGIC TECHNOLOGIST - 03/29/2025 10:23 AM RADIOLOGIC TECHNOLOGIST Hospital Encounter [facility] [address] [place] [address] Oscar Luna MD 13, [facility], [facility] [address] Lung mass Discharge Disposition: Home or Self Care 03/26/2025 External Device Data STL ABSTRACTION Provider, Abstract 03/19/2025 Orders Only [facility] Oncology and [facility] [address] [place] [address] Oscar Luna MD 03/18/2025 1:30 PM RADIOLOGIC TECHNOLOGIST Office Visit [facility] Oncology [facility] [address] [place] [address] Oscar Luna MD High cholesterol (Primary Dx); Deep vein thrombosis (DVT) of distal vein of lower extremity, unspecified chronicity, unspecified laterality (CMS/HCC); Lung mass; Malignant neoplasm of right lung, unspecified part of lung (CMS/HCC); Other nonspecific abnormal finding of lung field 02/06/2025 External Device Data STL ABSTRACTION Provider, Abstract 02/05/2025 External Device Data STL ABSTRACTION Provider, Abstract 02/05/2025 External Device Data STL ABSTRACTION Provider, Abstract 01/31/2025 Telephone [facility] Yardage Estimator [id number] [place] [address] Shiela Virk RN Appointment Notification from Last 3 Months Family History Medical History Relation Name Comments Cancer Brother Diabetes Daughter Heart Disease Father Cancer Mother Cancer Sister 1 Cancer Sister 2 No Known Problems Son Relation Name Status Comments Brother Alive Daughter Alive Father Mother Sister 1 Sister 2 Alive Son Alive Social History Tobacco Use Types Packs/Day Years Used Date Smoking Tobacco: Former Cigarettes 1 29 S tarted: 04/11/1965 Smokeless Tobacco: Never Tobacco Cessation:Counseling Given: Not Answered Alcohol Use Standard Drinks/Week Comments Never 0 (1 standard drink = 0.6 oz pur e alcohol) Sex and Gender Information Value Date Recorded Sex Assigned at Not on file Legal Sex Male 2:07 PM CDT Gender Identity Not on file Sexual Orientation Not on file Last Filed Vital Signs Vital Sign Reading Time Taken Comments Blood Pressure 152/85 03/29/2025 9:59 AM RADIOLOGIC TECHNOLOGIST Pulse 76 03/29/2025 9:59 AM RADIOLOGIC TECHNOLOGIST Temperature 36.7 C (98 F) 03/29/2025 8:00 AM RADIOLOGIC TECHNOLOGIST Respiratory Rate 16 03/29/2025 8:00 AM RADIOLOGIC TECHNOLOGIST Oxygen Saturation 97% 03/29/2025 9:59 AM RADIOLOGIC TECHNOLOGIST Inhaled Oxygen Concentration - - Weight 100.6 kg (221 lb 11.2 oz) 03/29/2025 8:00 AM RADIOLOGIC TECHNOLOGIST Height 190.5 cm (6' 3) 03/29/2025 8:00 AM RADIOLOGIC TECHNOLOGIST Body Mass Index 27.71 03/29/2025 8:00 AM RADIOLOGIC TECHNOLOGIST Plan of Treatment Upcoming Encounters Date Type Department Care Team (Late st Contact Info) Description 04/09/2025 4:00 PM RADIOLOGIC TECHNOLOGIST Telephone Check Up [facility] Oncology and Hematology - [place] [address] [place] [address] Manas Egan MD [address] [place] [address] Health Maintenance Due Date Last Done Comments DTAP/TDAP/TD VACCINES (1 - Tdap) 1969 COLORECTAL SCREENING 1995 Colorectal Cancer Screening 1995 FIT-DNA Q 3 years 1995 FIT/FOBT Q 1 year 1995 Flex Sig/CT Colonography Q 5 years 1995 PNEUMOCOCCAL VACCINE 50+ YEARS (1 of 1 - PCV) 03/24/20 00 ZOSTER VACCINE (1 of 2) 2000 Abdominal Aortic Aneurysm (AAA) Screening 2015 [place] ([place]) Prev entative Visit/Annual Wellness Visit 04/11/2024 INFLUENZA VACCINE (#1) 2024 RSV VACCINE (60+ or ) (1 - 1-dose 75+ series) 2025 Procedures Procedure Name Priority Date/Time Associated Diagnosis Comments CT LIMITED LOCALIZED F/U STUDY Stat 03/29/2025 10:14 AM RADIOLOGIC TECHNOLOGIST Lung mass CBC WITH DIFFERENTIAL Stat 03/29/2025 8:13 AM RADIOLOGIC TECHNOLOGIST US VENOUS DOPPLER LEG LEFT Routine 03/19/2025 2:09 PM RADIOLOGIC TECHNOLOGIST from Last 3 Months Results * CT LIMITED LOCALIZED F/U STUDY (03/29/2025 10:14 AM RADIOLOGIC TECHNOLOGIST) Anatomical Region Laterality Modality Computed Tomogra phy 03/29/2025 10:0 3 AM RADIOLOGIC TECHNOLOGIST Impressions 03/29/2025 4:14 PM RADIOLOGIC TECHNOLOGIST IMPRESSION: 1. Near complete resolution of right lower lobe pulmonary nodule. Biopsy cannot be performed. DICTATION LOCATION: Location [address] [place] [address] Narrative 03/29/2025 4:14 PM RADIOLOGIC TECHNOLOGIST EXAMINATION: LIMITED CT OF THE CHEST WITHOUT INTRAVENOUS CONTRAST DATE: 03/29/2025 10:14 AM TECHNIQUE: Limited CT of the chest was performed without the administration of intravenous contrast according to standard protocol. The examination was performed with the adjustment of mA according to the patient size and/or the use of Iterative Reconstruction Technique. HISTORY: 75 years-old Male with pulmonary nodule. The patient was initially referred for percutaneous biopsy of right lower lobe pulmonary nodule. COMPARISON: 01/02/2025 FINDINGS: Limited CT images show near complete resolution of the previously described right lower lobe pulmonary nodule. There is old granulomatous disease in the left upper lobe. There is bibasilar atelectasis and pulmonary emphysema. Procedure Note Lopez Griffith MD - 03/29/2025 EXAMINATION: LIMITED CT OF THE CHEST WITHOUT INTRAVENOUS CONTRAST DATE: 03/29/2025 10:14 AM TECHNIQUE: Limited CT of the chest was performed without the administration of intravenous contrast according to standard protocol. The examination was performed with the adjustment of mA according to the patient size and/or the use of Iterative Reconstruction Technique. HISTORY: 75 years-old Male with pulmonary nodule. The patient was initially referred for percutaneous biopsy of right lower lobe pulmonary nodule. COMPARISON: 01/02/2025 FINDINGS: Limited CT images show near complete resolution of the previously described right lower lobe pulmonary nodule. There is old granulomatous disease in the left upper lobe. There is bibasilar atelectasis and pulmonary emphysema. IMPRESSION: 1. Near complete resolution of right lower lobe pulmonary nodule. Biopsy cannot be performed. DICTATION LOCATION: Location - [facility] Oscar Luna MD CT ORDERABLES Final Result * CBC WITH DIFFERENTIAL (03/29/2025 8:13 AM RADIOLOGIC TECHNOLOGIST) WBC 5.5 4.0 - 9.8 K/uL 03/29/2025 8:48 AM RADIOLOGIC TECHNOLOGIST [facility] RBC 5.21 4.50 - 5.40 M/uL 03/29/2025 8:48 AM RADIOLOGIC TECHNOLOGIST [facility] [place] HEMOGLOBIN 14.7 13.6 - 16.5 g/dL 03/29/2025 8:48 AM RADIOLOGIC TECHNOLOGIST [facility] [place] HEMATOCRIT 43.7 40.0 - 48.0 % 03/29/2025 8:48 AM RADIOLOGIC TECHNOLOGIST [facility] [place] MCV 83.9 82.0 - 99.0 fL 03/29/2025 8:48 AM RADIOLOGIC TECHNOLOGIST [facility] MCH 28.2 27.2 - 32.6 pg 03/29/2025 8:48 AM RADIOLOGIC TECHNOLOGIST [facility] MCHC 33.6 31.5 - 35.5 g/dL 03/29/2025 8:48 AM RADIOLOGIC TECHNOLOGIST [facility] [place] RDW 13.3 11.5 - 14.5 % 03/29/2025 8:48 AM RADIOLOGIC TECHNOLOGIST [facility] RDW-STDEV 41.1 37.1 - 48.7 fL 03/29/2025 8:48 AM RADIOLOGIC TECHNOLOGIST [facility] PLATELETS 199 140 - 350 K/uL 03/29/2025 8:48 AM RADIOLOGIC TECHNOLOGIST [facility] MPV 9.5 9.3 - 12.4 fL 03/29/2025 8:48 AM RADIOLOGIC TECHNOLOGIST [facility] NEUTROPHILS 54 % 03/29/2025 8:48 AM RADIOLOGIC TECHNOLOGIST [facility] LYMPHOCYTES 28 % 03/29/2025 8:48 AM RADIOLOGIC TECHNOLOGIST [facility] MONOCYTES 12 % 03/29/2025 8:48 AM RADIOLOGIC TECHNOLOGIST [facility] EOSINOPHILS 4 % 03/29/2025 8:48 AM RADIOLOGIC TECHNOLOGIST [facility] BASOPHILS 2 % 03/29/2025 8:48 AM RADIOLOGIC TECHNOLOGIST [facility] IMMATURE GRANULOCYTES 0 % 03/29/2025 8:48 AM RADIOLOGIC TECHNOLOGIST [facility] NEUTROPHIL ABSOLUTE 2.96 1.90 - 7.00 K/uL 03/29/2025 8:48 AM RADIOLOGIC TECHNOLOGIST [facility] [place] LYMPHOCYTE ABSOLUTE 1.54 0.70 - 4.50 K/uL 03/29/2025 8:48 AM RADIOLOGIC TECHNOLOGIST [facility] MONOCYTE ABSOLUTE 0.64 0.10 - 1.30 K/uL 03/29/2025 8:48 AM RADIOLOGIC TECHNOLOGIST [facility] [place] EOSINOPHIL ABSOLUTE 0.22 0.00 - 0.70 K/uL 03/29/2025 8:48 AM RADIOLOGIC TECHNOLOGIST [facility] [place] BASOPHILS ABSOLUTE 0.09 0.00 - 0.20 K/uL 03/29/2025 8:48 AM RADIOLOGIC TECHNOLOGIST [facility] - . [facility] IMMATURE GRANULOCYTES ABSOLUTE 0.01 0.00 - 0.03 K/uL 03/29/2025 8:48 AM RADIOLOGIC TECHNOLOGIST [facility] Blood Venipuncture / Unknown 03/29/2025 8:13 AM RADIOLOGIC TECHNOLOGIST 03/29/2025 8:35 AM RADIOLOGIC TECHNOLOGIST us Patti Chapin MD HEMATOLOGY ORDERABLES Final Resu lt [facility] CLIA# [id number] [address] [place] [address] * US VENOUS DOPPLER LEG LEFT (03/19/2025 2:09 PM RADIOLOGIC TECHNOLOGIST) Anatomical Region Laterality Modality Lower Extremity Ultrasound us Oscar Luna MD US ORDERABLES Final Result from Last [address] [facility] [id number] [facility] [id number]
--- OUTSIDE RECORDS SUMMARY | 2025-04-02 12:06 | XMS_ITS | Clinical Summary ---
Author Organization [facility] Address [address] [place] [address] Care Team Providers Care Insurance Examiner Name Role Phone Jaleel Kerr MD Primary Care Provider [phone] Kalen Vasquez MD Unavailable [phone] Source Comments [facility],non-owned Affiliates and Associated Physician Practices is amultiple site organization consisting of ambulatory clinics and hospital sitesin [place], [place], [place] and [place]. This disclosure is being madepursuant to the Care Everywhere program and may not contain all information available regarding this patient. 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 Gender Identity Not on file Sexual Orientation [...] 2000 ZOSTER VACCINE (1 of 2) 2000 DEPRESSION SCREENING 04/11/2024 COVID-19 VACCINE (1 - 2024-2 6 season) 2024 INFLUENZA VACCINE (#1) 2024 Respiratory [...] complete this topic Insurance MEDICARE COMMERCIAL GENERIC [facility] MANAGED MEDICARE ADV Advance Directives Documents on File Type Date Recorded Patient Lab Tech Expl anation Adv Directive/Living Will/POA 10/24/2009 2:41 PM * Full Code (Latest Code Status on File) Date Activated Date Inactivated Comments 10/20/2009 11:47 AM 10/24/2009 1:08 AM Care Teams Insurance Examiner Relationship Specialty Start Date End Date Jaleel Kerr MD [address] [place] [id number] PCP - General Family Medicine 09/05/14 [place] [id number] [facility] [address] [place] [address] Orthopedic Surgery 10/08/14
--- OUTSIDE RECORDS SUMMARY | 2025-04-02 12:06 | XMS_ITS | Patient Health Record ---
Author Organization [facility] [employer] ([address]) Address [address] [place] [address] Care Team Providers Care Rigger Supervisor Name Role Phone MonsepkKaylah Primary Care Provider Mery Rojas Unavailable [phone] Allergies Allergen (clinical drug ingredient) Drug/Non Drug [...] per schedule; Duration: to be determined Active PROAIR HFA 90 mcg/inh 2 puff(s) inhaled every 6 hours, PRN; Duration: 30 day(s) Active Alis Allergy 180 MG 1 tab(s) orally once a day Active EPIPEN 2-BENTLEY 0.3 mg 0.3 mg intramuscularly once; Duration: 1 dose(s) Active PAZEO 0.7% 1 gtt in each affect ed eye once a day; Duration: 30 day(s) Active Pravastatin Sodium 10 MG TAKE 1 TABLET BY MOUTH AT BEDTIME Oral; Duration: 90 Days Active Breo Ellipta 200 MCG-25 MCG/INH 1 PUFF(S) INHALED ONCE A DAY; Duration: 30 days *Please review and pick correct strength-formulati on from [employer] options. If intended option is not shown, discontinue and re-order from Quick Search* Active EpiPen 2-Bentley 0.3 MG/0.3ML 0.3 mg intramuscularly once; Duration: 1 dose(s) Active Nasacort Allergy 24HR *Please review and pick correct strength-formulati on from [employer] options. If intended option is not shown, discontinue and re-order from Quick Search* Active RHINOCORT AQUA 32 mcg/inh 2 spray(s) intranasally once a day; Duration: 30 day(s) Active NASAL WASHES N/A as directed intranasally as needed; Duration: 30 Active ALIS 24 HOUR ALLERGY 180 mg 1 tab(s) orally once a day Active Immunizations Vaccine Route Administration Date Status [...] 04/18/2024 Encounters Encounter Location Date Provider Diagnosis [facility] [address] [phone] 03/06/2025 Mery Collins Allergic rhinitis du e to pollen J30.1 ; Allergic rhinitis due to animal (cat) (dog) hair and dander J30.81 ; Other allergic rhinitis J30.89 and Other chronic allergic conjunctivitis H10.45 [facility] [address] [phone] 02/04/2025 Mery Collins Allergic rhinitis du e to pollen J30.1 ; Allergic rhinitis due to animal (cat) (dog) hair and dander J30.81 ; Other allergic rhinitis J30.89 and Other chronic allergic conjunctivitis H10.45 [facility] [address] [place] [address] [employer] [address] [place] [phone] 01/03/2025 Mery Collins Allergic rhinitis du e to pollen J30.1 ; Allergic rhinitis due to animal (cat) (dog) hair and dander J30.81 ; Other allergic rhinitis J30.89 and Other chronic allergic conjunctivitis H10.45 [facility] [address] [place] [address] [employer] [address] [phone] 12/03/2024 Merymadai Collins Allergic rhinitis du e to pollen J30.1 ; Allergic rhinitis due to animal (cat) (dog) hair and dander J30.81 ; Other allergic rhinitis J30.89 and Other chronic allergic conjunctivitis H10.45 [facility] [address] [place] [address] [employer] [address] [place] [phone] 11/08/2024 Merymadai Collins Allergic rhinitis du e to pollen J30.1 ; Allergic rhinitis due to animal (cat) (dog) hair and dander J30.81 ; Other allergic rhinitis J30.89 and Other chronic allergic conjunctivitis H10.45 [facility] [address] [place] [address] [employer] [address] [address] 11/01/2024 Mery Collins Allergic rhinitis du e to pollen J30.1 ; Allergic rhinitis due to animal (cat) (dog) hair and dander J30.81 ; Other allergic rhinitis J30.89 and Other chronic allergic conjunctivitis H10.45 [facility] [address] [place] [address] [employer] [address] [place] [phone] 10/24/2024 Mery Collins Allergic rhinitis du e to pollen J30.1 ; Allergic rhinitis due to animal (cat) (dog) hair and dander J30.81 ; Other allergic rhinitis J30.89 and Other chronic allergic conjunctivitis H10.45 [facility] [address] [place], [place] [address] [address] [place] [phone] 08/30/2024 Merymadai Collins Allergic rhinitis du e to pollen J30.1 ; Allergic rhinitis due to animal (cat) (dog) hair and dander J30.81 ; Other allergic rhinitis J30.89 and Other chronic allergic conjunctivitis H10.45 [facility] [address] [place] [phone] 07/31/2024 Mery Collins Allergic rhinitis du e to pollen J30.1 ; Allergic rhinitis due to animal (cat) (dog) hair and dander J30.81 ; Other allergic rhinitis J30.89 and Other chronic allergic conjunctivitis H10.45 [facility] [address] [place] [phone] 07/25/2024 Merymadai Collins Allergic rhinitis du e to pollen J30.1 ; Allergic rhinitis due to animal (cat) (dog) hair and dander J30.81 ; Other allergic rhinitis J30.89 and Other chronic allergic conjunctivitis H10.45 [facility] [address] [place] [phone] 07/12/2024 Mery Collins Allergic rhinitis du e to pollen J30.1 ; Allergic rhinitis due to animal (cat) (dog) hair and dander J30.81 ; Other allergic rhinitis J30.89 and Other chronic allergic conjunctivitis H10.45 [facility] [address] [place] [phone] 05/21/2024 Mery Collins Allergic rhinitis du e to pollen J30.1 ; Allergic rhinitis due to animal (cat) (dog) hair and dander J30.81 ; Other allergic rhinitis J30.89 and Other chronic allergic conjunctivitis H10.45 [facility] [address] [place] [phone] 04/18/2024 Mery Collins Allergic rhinitis du e to pollen J30.1 ; Moderate persistent asthma, uncomplicated J45.40 ; Allergic rhinitis due to animal (cat) (dog) hair and dander J30.81 ; Other allergic rhinitis J30.89 ; Snoring R06.83 and Other chronic allergic conjunctivitis H10.[address] [address] 11/05/2024 Mery Collins Moderate persistent asthma, uncomplicated [...] rhinitis due to pollen (ICD-10 - J30.1) 01/03/2025 Allergic rhinitis due to pollen (ICD-10 - J30.1) 02/04/2025 Allergic rhinitis due to pollen (ICD-10 - J30.1) 03/06/2025 Allergic rhinitis due to pollen (ICD-10 - J30.1) 03/06/2025 Allergic rhinitis due to animal (cat) (dog) hair and dander (ICD-10 - J30.81) 02/04/2025 Allergic rhinitis due to animal (cat) (dog) hair and dander (ICD-10 - J30.81) 01/03/2025 Allergic rhinitis due to animal (cat) (dog) [...] 12/03/2024 Other allergic rhinitis (ICD-10 - J30.89) 01/03/2025 Other allergic rhinitis (ICD-10 - J30.89) 02/04/2025 Other allergic rhinitis (ICD-10 - J30.89) 03/06/2025 Other allergic rhinitis (ICD-10 - J30.89) 03/06/2025 Other chronic allergic conjunctivitis (ICD-10 - H10.45) 02/04/2025 Other chronic allergic conjunctivitis (ICD-10 - H10.45) 01/03/2025 Other chronic allergic conjunctivitis (ICD-10 - H10.45) [...] Plan Of Treatment Next Appt Details Provider Name:Tk Ballesteros , 04/08/2025 09:50:00 AM, [address], [place], [address], Provider Name:Arielle cisneros, 05/06/2025 11:00:00 AM, [address], [place], [address], Insurance Providers Payer Name Payer Address Payer Phone Subscriber Number Group Number Insured Name Patient Relationship to Insured Coverage Start Date Coverage End Date [employer] [address] [place] [address] [phone] [id number] Martin Chapin Self - patient is the insured Medical (General) History Medical History History ICD Code Allergic rhinitis due to pollen Other allergic rhinitis Allergic rhinitis due to animal (cat) (d og) hair and dander Surgical History Surgery Date(Month/Year) right knee replacement 11/09/2009 Hospitalization History Reason Date(Month/Year) kidney stones 08/10/1999
== END 2025-04-02 11:56 | disposition home or self-care (01) ==
PROVIDERS: PCP Family Medicine; Visit Provider Internal Medicine Hematology & Oncology
DX: R91.8 Other nonspecific abnormal finding of lung field (principal); C34.91 Malignant neoplasm of unspecified part of right bronchus or lung
CPT/HCPCS: 78815; A9552